=== PATIENT | male | born 1940 | race Caucasian/White ===

== ENCOUNTER 2017-09-30 12:12 | Emergency (ER) | payer OTHER, SELFPAY ==
[2017-09-30 12:18] VITALS: BP 162/84; PULSE 90; RESP 16; TEMP 37.4; O2SAT 97
--- NOTE | 2017-09-30 12:34 | ED.GENADUL ---
Disposition Clinical Impression: Sprain of LCL (lateral collateral ligament) of knee Disposition: HOME Condition: Stable Instructions: Knee Sprain (ED) Additional Instructions: Feel free to return to the emergency department for any new or significant worsening of symptoms. They these may include redness or swelling to the joint, fever chills, other joint involvement or other complaints. Otherwise you should rest the extremity for the next 2-3 days and slowly advance activity as tolerated. Follow-up with your primary care provider in the next week or call orthopedist for arrangement of follow-up appointment. Referrals: Quinton Gould MD [ [facility] STAFF PHYSICIAN] - Miller Gonzales MD [ [facility] STAFF PHYSICIAN] - [facility] [Outside] - 1 week (Please call your primary care provider for reassessment in the next week or feel free to call listed orthopedist if your primary care provider cannot see.) Medical Decision Making - Radiology Data Radiology results: report reviewed, image reviewed - Medical Decision Making Patient presenting to the emergency department for chief complaint of left knee pain. Patient has pain with varus testing of the knee otherwise exam is unremarkable. There is no significant erythema, swelling to the joint, effusion. There is mild discomfort with palpation of lateral aspect of knee and proximal fibula with single area and fibula showing ecchymosis but very mild. Patient has no known injury or trauma but given that he cannot bear weight that is getting progressively worse I do feel that radiological imaging is warranted to assess for occult fracture, pathological fracture. Patient does state that he was mowing the yard when he initially felt something on the lateral aspect of knee that felt like a burning or stinging sensation that is persisted along with the pain. Question of possible lateral ligament sprain is highly considered at this time as well. Otherwise exam is unremarkable so I do not feel any other interventions beyond imaging is warranted at this time. Pending results patient given Tylenol for pain control. After review of radiological imaging and radiologist interpretation showing no acute findings patient was reassessed. Patient has no new or worsening symptoms. I suspect a lateral collateral ligament sprain to the knee. Patient was given a hinged knee brace and informed that he should rest the extremity for the next 2-3 days and slowly advance activity as tolerated with leaving hinged knee brace on and using cane or walker. Patient states that he would prefer to use his cane. Patient was recommended to follow-up with orthopedist but he [facility] and stated he would call his primary care provider on Monday morning for reassessment or referral as needed. Patient was encouraged to use eowm-smg-hqajpal acetaminophen/Tylenol for pain control. After discussion of diagnosis and plan of care with patient patient agreed and stated no further needs, questions, or concerns at this time. Attempted to do med rec on patient but patient states he knows he takes a blood pressure med and her diabetes meds along with med for his cholesterol but does not know names or dosing of medications. History of Present Illness - General Chief complaint: Orthopedic Stated complaint: lt knee PAIN Time Seen by Provider: 09/30/17 12:33 Source: patient, RN notes reviewed Mode of arrival: ambulatory (With use of cane) Limitations: no limitations - History of Present Illness Initial comments: Patient presented to the emergency department with chief complaint of left knee pain. Patient states 3 days ago he was mowing his yard and felt what he thought was a sting or bite to his left lateral knee. Afterwards he has noticed progressive discomfort to his left leg causing him now to need a cane to walk due to severe discomfort with any full weightbearing activity. Patient denies any known injury or trauma, syncope, loss of consciousness. Onset/Timin -: days(s) Location: left, lower extremity Severity scale (1-10): 6 Quality: sharp Consistency: constant Improves with: immobilization Worsens with: movement Associated Symptoms: denies other symptoms Treatments Prior to Arrival: none - Related Data Unknown [Unable to Obtain] 09/30/17 Allergies Allergy/AdvReac Type Severity Reaction Status Date / Time No Known Allergies Allergy Unverified 09/30/17 12:21 Review of Systems Constitutional: no symptoms reported. denies: chills, fever Respiratory: no symptoms reported. denies: shortness of breath, stridor, wheezing Cardiovascular: denies: chest pain, palpitations, syncope Gastrointestinal: denies: abdominal pain Musculoskeletal: as per HPI Skin: as per HPI Neurological: denies: headache, numbness, paresthesias, confusion Past Medical History - Past Medical History Medical history: diabetes, hypertension Surgical history: non-contributory - Social History Smoking status: former smoker Alcohol use: none Drug use: none General Exam - General Limitations: no limitations General appearance: alert, in no apparent distress - Head Head exam: Present: atraumatic - Respiratory Respiratory exam: Absent: respiratory distress - Cardiovascular Cardiovascular Exam: Present: regular rate, normal rhythm - Expanded Lower Extremity Exam Left Hip exam: Present: normal inspection, full ROM. Absent: tenderness, external rotation, internal rotation Upper Leg exam: Present: normal inspection. Absent: deformity, crepidus Knee exam: Present: full ROM, tenderness (mild to palpation of lateral knee), pain/laxity with varus, full knee extension. Absent: swelling, abrasion, ecchymosis, deformity, crepidus, erythema, effusion, pain w/ pronation/supination, posterior draw sign, pain/laxity with valgus Lower Leg exam: Present: tenderness (mild to palpation of proximal fibula), ecchymosis (Very mild to proximal fibula). Absent: swelling Ankle exam: Present: normal inspection Neuro vascular tendon exam: Present: no vascular compromise. Absent: pulse deficit, motor deficit, sensory deficit, tendon deficit, abnormal 2-point discrimination Gait: unable to bear weight - Back Exam Back exam: Present: full ROM. Absent: tenderness, vertebral tenderness - Expanded Back Exam No standard instances Back exam: Negative Straight Leg Raising: (left) - Neurological Exam Neurological exam: Present: alert, oriented X3. Absent: altered - Psychiatric Psychiatric exam: Present: normal affect, normal mood - Skin Skin exam: Present: warm, dry, abrasion (Patient has slight abrasions to left lower extremity which only have mild erythema, no signs of significant infection) Course Vital Signs - 24 hr 09/30/17 12:18 Temperature 37.4 C Pulse 90 Respiratory 16 Rate Blood Pressure 162/84 Pulse Oximetry 97
--- NOTE | 2017-09-30 12:37 | ED.GENADUL_ITS ---
Disposition Clinical Impression: Sprain of LCL (lateral collateral ligament) of knee Disposition: HOME Condition: Stable Instructions: Knee Sprain (ED) Additional Instructions: Feel free to return to the emergency department for any new or significant worsening of symptoms. They these may include redness or swelling to the joint , fever chills, other joint involvement or other complaints. Otherwise you should rest the extremity for the next 2-3 days and slowly advance activity as tolerated. Follow-up with your primary care provider in the next week or call orthopedist for arrangement of follow-up appointment. Referrals: Quintno Gould MD [ [facility] STAFF PHYSICIAN] - Miller Gonzales MD [ [facility] STAFF PHYSICIAN] - [facility] [Outside] - 1 week (Please call your primary care provider for reassessment in the next week or feel free to call listed orthopedist if your primary care provider cannot see.) Medical Decision Making - Radiology Data Radiology results: report reviewed, image reviewed - Medical Decision Making Patient presenting to the emergency department for chief complaint of left knee pain. Patient has pain with varus testing of the knee otherwise exam is unremarkable. There is no significant erythema, swelling to the joint, effusion. There is mild discomfort with palpation of lateral aspect of knee and proximal fibula with single area and fibula showing ecchymosis but very mild. Patient has no known injury or trauma but given that he cannot bear weight that is getting progressively worse I do feel that radiological imaging is warranted to assess for occult fracture, pathological fracture. Patient does state that he was mowing the yard when he initially felt something on the lateral aspect of knee that felt like a burning or stinging sensation that is persisted along with the pain. Question of possible lateral ligament sprain is highly considered at this time as well. Otherwise exam is unremarkable so I do not feel any other interventions beyond imaging is warranted at this time. Pending results patient given Tylenol for pain control. After review of radiological imaging and radiologist interpretation showing no acute findings patient was reassessed. Patient has no new or worsening symptoms. I suspect a lateral collateral ligament sprain to the knee. Patient was given a hinged knee brace and informed that he should rest the extremity for the next 2-3 days and slowly advance activity as tolerated with leaving hinged knee brace on and using cane or walker. Patient states that he would prefer to use his cane. Patient was recommended to follow-up with orthopedist but he [facility] and stated he would call his primary care provider on Monday morning for reassessment or referral as needed. Patient was encouraged to use [id number] acetaminophen/Tylenol for pain control. After discussion of diagnosis and plan of care with patient patient agreed and stated no further needs, questions, or concerns at this time. Attempted to do med rec on patient but patient states he knows he takes a blood pressure med and her diabetes meds along with med for his cholesterol but does not know names or dosing of medications. History of Present Illness - General Chief complaint: Orthopedic Stated complaint: lt knee PAIN Time Seen by Provider: 09/30/17 12:33 Source: patient, RN notes reviewed Mode of arrival: ambulatory (With use of cane) Limitations: no limitations - History of Present Illness Initial comments: Patient presented to the emergency department with chief complaint of left knee pain. Patient states 3 days ago he was mowing his yard and felt what he thought was a sting or bite to his left lateral knee. Afterwards he has noticed progressive discomfort to his left leg causing him now to need a cane to walk due to severe discomfort with any full weightbearing activity. Patient denies any known injury or trauma, syncope, loss of consciousness. Onset/Timin -: days(s) Location: left, lower extremity Severity scale (1-10): 6 Quality: sharp Consistency: constant Improves with: immobilization Worsens with: movement Associated Symptoms: denies other symptoms Treatments Prior to Arrival: none - Related Data Unknown [Unable to Obtain] 09/30/17 Allergies Allergy/AdvReac Type Severity Reaction Status Date / Time No Known Allergies Allergy Unverified 09/30/17 12:21 Review of Systems Constitutional: no symptoms reported. denies: chills, fever Respiratory: no symptoms reported. denies: shortness of breath, stridor, wheezing Cardiovascular: denies: chest pain, palpitations, syncope Gastrointestinal: denies: abdominal pain Musculoskeletal: as per HPI Skin: as per HPI Neurological: denies: headache, numbness, paresthesias, confusion Past Medical History - Past Medical History Medical history: diabetes, hypertension Surgical history: non-contributory - Social History Smoking status: former smoker Alcohol use: none Drug use: none General Exam - General Limitations: no limitations General appearance: alert, in no apparent distress - Head Head exam: Present: atraumatic - Respiratory Respiratory exam: Absent: respiratory distress - Cardiovascular Cardiovascular Exam: Present: regular rate, normal rhythm - Expanded Lower Extremity Exam Left Hip exam: Present: normal inspection, full ROM. Absent: tenderness, external rotation, internal rotation Upper Leg exam: Present: normal inspection. Absent: deformity, crepidus Knee exam: Present: full ROM, tenderness (mild to palpation of lateral knee), pain/laxity with varus, full knee extension. Absent: swelling, abrasion, ecchymosis, deformity, crepidus, erythema, effusion, pain w/ pronation/ supination, posterior draw sign, pain/laxity with valgus Lower Leg exam: Present: tenderness (mild to palpation of proximal fibula), ecchymosis (Very mild to proximal fibula). Absent: swelling Ankle exam: Present: normal inspection Neuro vascular tendon exam: Present: no vascular compromise. Absent: pulse deficit, motor deficit, sensory deficit, tendon deficit, abnormal 2-point discrimination Gait: unable to bear weight - Back Exam Back exam: Present: full ROM. Absent: tenderness, vertebral tenderness - Expanded Back Exam No standard instances Back exam: Negative Straight Leg Raising: (left) - Neurological Exam Neurological exam: Present: alert, oriented X3. Absent: altered - Psychiatric Psychiatric exam: Present: normal affect, normal mood - Skin Skin exam: Present: warm, dry, abrasion (Patient has slight abrasions to left lower extremity which only have mild erythema, no signs of significant infection ) Course Vital Signs - 24 hr 09/30/17 12:18 Temperature 37.4 C Pulse 90 Respiratory 16 Rate Blood Pressure 162/84 Pulse Oximetry 97
[2017-09-30] MEDS: Acetaminophen 325 MG TAB 650 MG PO (12:49)
--- NOTE | 2017-09-30 13:00 | DI.REPORT_ITS ---
SYMPTOM/DIAGNOSIS: LT KNEE AND FIBULA PAIN LEFT KNEE: Three views were obtained. There are mild degenerative changes of the knee, predominantly involving the medial tibiofemoral joint. There is no evidence of acute fracture. LEFT LEG: Two views were obtained. No fracture is seen.
--- NOTE | 2017-09-30 13:48 | DI.VRAD_ITS ---
EXAM: XR Left Knee, 3 views EXAM DATE/TIME: 09/30/2017 1:04 PM CLINICAL HISTORY: 77 years old, male; Signs and symptoms; Other: Lt knee pain, lateral knee pain TECHNIQUE: Three views of the left knee. COMPARISON: No relevant prior studies available. FINDINGS: Bones/joints: Mild degenerative changes. No acute fracture. No dislocation. Soft tissues: Unremarkable. IMPRESSION: No acute findings. Dictated and Authenticated by: Claude Gordon MD. Ordering:MONIQUE MUKHERJEE MD
--- NOTE | 2017-09-30 13:51 | DI.VRAD_ITS ---
EXAM: XR Left Tibia and Fibula, 2 Views EXAM DATE/TIME: 09/30/2017 12:35 PM CLINICAL HISTORY: 77 years old, male; Signs and symptoms; Other: Proximal fibula pain TECHNIQUE: Frontal and lateral views of the left tibia and fibula. COMPARISON: No relevant prior studies available. FINDINGS: Bones/joints: Unremarkable. No acute fracture. No dislocation. Soft tissues: Unremarkable. No radiopaque foreign body. IMPRESSION: No acute abnormality identified. Dictated and Authenticated by: Claude Gordon MD. Ordering:MONIQUE MUKHERJEE MD
== END 2017-09-30 14:03 | disposition home or self-care (01) ==
PROVIDERS: Emergency Provider Student in an Organized Health Care Education/Training Program
DX: S83.422A Sprain of lateral collateral ligament of left knee, initial encounter (principal); X58.XXXA Exposure to other specified factors, initial encounter; I10 Essential (primary) hypertension; E11.9 Type 2 diabetes mellitus without complications
CPT/HCPCS: 29505; 73562; 99284; 73590; 99283; L1810

== ENCOUNTER 2017-10-31 10:15 | Outpatient (CLI) | payer MEDICARE, OTHER, SELFPAY | END 2017-10-31 10:16 | PROVIDERS: Visit Provider Orthopaedic Surgery | DX: M23.8X2 Other internal derangements of left knee (principal); M25.562 Pain in left knee | CPT/HCPCS: 20610; 99213; J1040 ==

== ENCOUNTER 2018-09-05 09:02 | Emergency (ER) | payer MEDICARE, OTHER, SELFPAY ==
[2018-09-05 09:17] VITALS: BP 132/71; PULSE 98; RESP 16; TEMP 37; O2SAT 98
[2018-09-05 09:20] VITALS: RESP 16
--- NOTE | 2018-09-05 09:32 | DI.CT_ITS ---
SYMPTOM/DIAGNOSIS: TRANSIENT LT ARM NUMBNESS, RESOLVED NONCONTRAST HEAD CT: A noncontrast cranial CT was performed. There is mild generalized cerebral atrophy. There is no evidence of acute intracranial hemorrhage, mass effect or midline shift. The orbital and temporal bone structures appear intact. Paranasal sinuses and mastoid air cells are well aerated. CONCLUSION: No evidence of acute intracranial injury. CERVICAL SPINE CT: CT examination of the cervical spine was performed utilizing multi slice acquisition and multi planar reconstruction. There are prominent hypertrophic degenerative changes of the cervical spine with very prominent osteophytes anteriorly at the C 4-5 level. There is no evidence of acute fracture or dislocation. Tracheal laryngeal structures appear intact. Visualized lung apices are clear. No cervical mass or adenopathy is seen. CONCLUSION: No evidence of acute cervical fracture. Question deformity of aortic arch noted at the inferior border of the area scanned. CT angiography may be considered to evaluate the incompletely imaged aortic arch to exclude aneurysm or pseudoaneurysm if clinically indicated.
--- NOTE | 2018-09-05 09:33 | DI.RAD_ITS ---
SYMPTOM/DIAGNOSIS: TRANSIENT LT ARM NUMBNESS, RESOLVED PA AND LATERAL CHEST: The heart is normal in size. The lungs are clear. The mediastinal structures and pleura appear intact. CONCLUSION: Normal chest.
--- NOTE | 2018-09-05 09:33 | W.ED.GENAD ---
Discharge Plan Disposition Patient Disposition: HOME Condition: Improving Discharge Details Chief Complaint: GenMedical Clinical Impression: Arm paresthesia, left Primary Care Provider: [facility] Provider: Miller Hagen Home Meds and New Rx's Prescriptions: Continued terazosin 5 MG capsule 5 mg PO HS RF: 0 metformin 500 MG tablet 500 mg PO BID RF: 0 simvastatin 40 MG tablet 20 mg PO HS RF: 0 levothyroxine 100 MCG tablet 100 mcg PO DAILY RF: 0 omeprazole 20 MG capsule,delayed release(DR/EC) 20 mg PO DAILY RF: 0 oxybutynin chloride 5 MG tablet 10 mg PO DAILY RF: 0 lisinopril 40 MG tablet 40 mg PO DAILY RF: 0 Discharge Instructions Additional Instructions: Return if you have recurrent numbness, develop weakness of the arm, leg, difficulty with gait, change to speech, or any other acute concern. Continue your regular medications. Follow-up with the [facility] for routine care. Medical Decision Making 78-year-old male with a number of chronic and stable medical problems states that we will getting ready for the shower this morning he had transient left arm from mid humerus to wrist numbness. He did not have finger or hand numbness. There was no clumsiness. He says that he slapped it a couple times and after 20 seconds the numbness resolved. He denies recent headache or neck injury. Is not had a fever. No other recent illness. His exam including multipoint neurologic exam is unremarkable. Differential diagnosis does include TIA, must exclude mass, would consider electrolyte abnormality or dehydration, consider radiculopathy as well. Patient had screening laboratories obtained, referred for CT scan of the head, EKG, chest x-ray. CT of the head unremarkable. CT scan of the cervical spine with DJD and question abnormality of the aortic arch, therefore patient referred for CT of the aorta which is unremarkable for significant acute pathology. Please see formal report. Patient remains asymptomatic. Do not feel further work-up is indicated. Is stable and appropriate for discharge home at this time ECG Data Attestation: I personally reviewed and interpreted this ECG (s) as follows: Interpretation: Normal sinus rhythm with a rate of 76, the QRS is narrow, there is no ST segment elevation present HPI General Mode of arrival: ambulatory. Date/Time Provider Initiated Documentation: 09/05/18 09:07. Limitations to Documentation: no limitations. Information obtained by: patient. History of Present Illness 78 year old M presents to the emergency department with the chief complaint of Transient left arm numbness x20 seconds, resolved, described as mild, Quality is described as dull, and is localized to the left and upper extremity. Patient reports no radiation. Patient started experiencing this minute(s) and it has been now resolved. No relieving factors improve symptom(s), No exacerbating factors reported . Patient notes no other symptoms.. Patient did receive the following treatments prior to arrival, none Related Data Home Medications Medication Instructions Recorded Confirmed levothyroxine 100 mcg PO DAILY tab-cap 11/10/17 lisinopril 40 mg PO DAILY tab-cap 11/10/17 metformin 500 mg PO BID tab-cap 11/10/17 omeprazole 20 mg PO DAILY tab-cap 11/10/17 oxybutynin chloride 10 mg PO DAILY 11/10/17 simvastatin 20 mg PO HS 11/10/17 terazosin 5 mg PO HS 11/10/17 Allergies Allergy/AdvReac Type Severity Reaction Status Date / Time No Known Allergies Allergy Unverified 09/05/18 09:26 General Stated Complaint: GenMedical MEL: 3 Review of Systems Review of Systems No headache, no change to speech, no difficulty with walking. No recent fall or illness. He has not had a headache. No neck pain. 8 systems reviewed and otherwise neck PFSH Social History Smoking/Tobacco Use Status: Former Tobacco Use Alcohol Intake: current Alcohol Intake frequency: holidays/special occasions only Drug use: Never Substance use type: does not use Do you feel safe at home: Yes Do you feel safe in your relationship?: Yes Exam Narrative Exam Narrative: GEN: awake, alert, oriented 3. Pleasant, well groomed, interactive. HEAD: Normocephalic, atraumatic ENT: Mucous membranes moist, oropharynx unremarkable, External ear exam unremarkable EYES: PERRL, EOMI NECK: Full ROM, no FRANCY, no menigismus CHEST/RESP: Nontender, clear to auscultation bilateral, no wheeze/rhonchi/rales CARDIOVASCULAR: RRR, no murmur, rub mayito. 2+ Rad pulse bilateral ABDOMEN: Soft, nontender, no mass. +Bowel sounds EXT: Full ROM, no edema, no rash Neuro: Grossly normal neurologic exam, conversant, interactive. Cranial nerves II through XII intact. Able to heel and toe walk. Whuhja-cx-ncad intact. Visual boggs intact. Negative Romberg. Psych: Speech fluent, thoughts congruent, affect normal Course Vital Signs Temperature 37.0 C 09/05/18 09:17 Pulse 98 H 09/05/18 09:17 Respiratory Rate 16 09/05/18 09:17 Blood Pressure 132/71 09/05/18 09:17 Pulse Oximetry 98 09/05/18 09:17 Temperature 37.0 C 09/05/18 09:17 Temperature Source Temporal Artery Scan 09/05/18 09:17 Pulse 98 H 09/05/18 09:17 Respiratory Rate 16 09/05/18 09:20 Respiratory Effort 09/05/18 09:20 Respiratory Depth Normal 09/05/18 09:20 Respiratory Pattern Normal 09/05/18 09:20 Blood Pressure 132/71 09/05/18 09:17 Pulse Oximetry 98 09/05/18 09:17 Oxygen Delivery Method Room Air 09/05/18 09:17 Oxygen Flow Rate 0 09/05/18 09:17
[2018-09-05 09:51] LABS: Abs Immature Grans 0.01 k/cumm (0.0-0.09); Absolute Basophil Count 0.02 k/cumm (0.0-0.2); Absolute Eosinophil Count 0.12 k/cumm (0.0-0.7); Absolute Lymphocyte Count 1.61 k/cumm (1.2-3.4); Absolute Monocyte Count 0.59 k/cumm (0.11-0.7); Absolute Neutrophil Count 5.03 k/cumm (1.2-6.7); Basophils % 0.3; Eosinophils % 1.6; HCT 41.2 % (40.0-50.0); HGB 13.1 g/dL (13.5-17.5); Immature Grans % 0.1; Lymphocytes % 21.8; Mean Corp. HGB Concentration 31.8 g/dL (32.0-36.0); Mean Corpuscular Hemoglobin 29.2 pg (27.0-33.0); Mean Platelet Volume 10.9 fL (8.0-11.0); Neutrophils % 68.2; Platelet Count 208 x1000/uL (130-400); RBC 4.48 m/cumm (4.50-6.00); RBC Distribution Width 14.8 % (11.8-14.1); White Blood Cell Count 7.38 k/cumm (4.4-10.8)
[2018-09-05 10:15] LABS: ALT 22 U/L (12-78); AST 13 U/L (15-37); Albumin 3.8 g/dL (3.4-5.0); Alkaline Phosphatase 82 U/L (46-116); Anion Gap 11.2 mmol/L (3-11); BUN 18 mg/dL (7-18); Bilirubin, Total 0.3 mg/dL (0.2-1.0); CO2 24.8 mmol/L (21.0-32.0); CREATININE 1.26 mg/dL (0.70-1.30); Calcium 9.5 mg/dL (8.5-10.1); Chloride 104 mmol/L (98-107); Estimated GFR 55.64 (mL/min/1.73m2); Glucose 188 mg/dL (70-100); Magnesium 1.7 mg/dL (1.8-2.4); Potassium 4.2 mmol/L (3.5-5.1); Sodium 140 mmol/L (136-145); Total Protein 7.4 g/dL (6.4-8.2); Troponin I < 0.05 ng/mL (0.00-0.06)
--- NOTE | 2018-09-05 10:31 | DI.CT_ITS ---
SYMPTOMS/DIAGNOSIS: LT ARM NUMBNESS TRANSIENT, ? AORTIC PATHOLOGY CT ANGIOGRAPHY CHEST, ABDOMEN AND PELVIS: CT angiography was performed with multi slice acquisition and multi planar and 3D reconstruction. CT Angiography of the chest, abdomen and pelvis was performed with a bolus infusion of 72 cc's of Omnipaque 350. Images obtained at the inferior most aspect of imaging field for cervical spine CT obtained showed question of extraluminal radiodensities or contour deformity of aortic arch. This appears to correspond to an area of pleural plaquing. Wall calcification of the thoracic and abdominal aorta noted. No aneurysm. No dissection. The subclavian arteries appear intact bilaterally. Common carotid arteries and vertebral arteries appear intact. No pulmonary contusion or consolidation. The tracheobronchial tree appears intact. No mediastinal or hilar adenopathy. No pleural effusion seen. Minimal calcification noted in posterior pleural plaques at the lung bases bilaterally. The liver and spleen are unremarkable in appearance except for hepatic calcifications probably representing old healed granulomatous disease or other insult. The pancreas appears intact. Gallbladder has been surgically removed. No biliary dilatation seen. The adrenals are unremarkable in appearance. Bilateral presumed renal cysts noted. Mild bilateral renal cortical thinning noted. The abdominal aorta is of normal diameter. There are duplicated renal arteries bilaterally. No gross stenosis seen involving celiac trunk, SMA, ERIC or renal arteries. Common iliac arteries appear normal as do external and internal iliac arteries except for wall calcifications. No abdominal or pelvic adenopathy seen. Appendix is normal. No evidence of diverticulitis or bowel obstruction. No significant abdominal wall hernia seen. CONCLUSION: Essentially negative CT Angiography of the chest, abdomen and pelvis. No evidence of aortic aneurysm, pseudoaneurysm or dissection.
[2018-09-05 10:32] VITALS: BP 130/65; PULSE 71; RESP 16; O2SAT 97
[2018-09-05] MEDS: Normal Saline 250 ML 500 ML IV (10:51)
[2018-09-05] MEDS: Omnipaque 350 MG/ML 100 ML BTL IJ (11:06)
[2018-09-05 11:37] VITALS: BP 143/71; PULSE 76; RESP 16; O2SAT 100
--- NOTE | 2018-09-05 11:39 | NUR.NOTE ---
patient received discharge and follow up instructions, moving all extremities and has steady gait Nursing Note:
== END 2018-09-05 11:36 | disposition home or self-care (01) ==
PROVIDERS: Emergency Provider Emergency Medicine
DX: R20.2 Paresthesia of skin (principal)
CPT/HCPCS: 36415; 74177; 80053; 93005; 96360; 99285; 70450; 71046; 72125; 83735; 84484; 85025; 93010; 99284; J3490

== ENCOUNTER 2018-11-02 09:17 | Outpatient (CLI) | payer MEDICARE, OTHER, SELFPAY ==
--- NOTE | 2018-11-02 09:34 | MERGE_ITS ---
*[facility]* *[facility]* [address] [place] [address] Date of study: 11/02/2018 Transthoracic Echocardiography M-mode, complete 2D, complete spectral Doppler, and color Doppler *STUDY CONCLUSIONS* Impressions: Low normal LVEF, moderate . Summary: 1. Left ventricle: The cavity size was normal. Wall thickness was at the upper limits of normal. Systolic function was at the lower limits of normal. The estimated ejection fraction was 50-55%. Wall motion was normal; there were no regional wall motion abnormalities. 2. Aortic valve: Trileaflet; moderately thickened, moderately calcified leaflets. Valve mobility was restricted. Transvalvular velocity was increased. There was moderate stenosis. Peak velocity (S): 3m/sec. Mean gradient (S): 21mm Hg. Valve area (VTI): 1.3cm^2. Valve area (Vmax): 1.2cm^2. Valve area (Vmean): 1.1cm^2. 3. Aortic root: The aortic root was at upper normal limits. 4. Ascending aorta: The ascending aorta was at upper normal limits. 5. Mitral valve: Mildly calcified annulus. 6. Right ventricle: The cavity size was normal. Wall thickness was normal. Systolic function was normal. *PATIENT PRESENTATION* Height: 165.1cm (65in ) S/D Pressure: 165 / 78 Weight: 79.4kg (174.6lb ) BSA: 1.93m^2 Test start time: 09:30 AM. Test stop time: 10:30 AM. 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 Pertinent images and digital data are archived for permanent storage and are available for subsequent review. No prior study was available for comparison. Study status: Routine. Transthoracic echocardiography. M-mode, complete 2D, complete spectral Doppler, and color Doppler. A Transthoracic Echocardiogram was performed. Scanning was performed from the parasternal, apical, subcostal, and suprasternal notch acoustic windows. Images were obtained using an [employer] SC 2000 cardiac ultrasound machine. Image quality was fair. Study completion: The patient tolerated the procedure well. History: PMH: Arrhythmia. *CARDIAC ANATOMY* Left ventricle: The cavity size was normal. Wall thickness was at the upper limits of normal. Systolic function was at the lower limits of normal. The estimated ejection fraction was 50-55%. Wall motion was normal; there were no regional wall motion abnormalities. Aortic valve: Trileaflet; moderately thickened, moderately calcified leaflets. Valve mobility was restricted. Doppler: Transvalvular velocity was increased. There was moderate stenosis. There was no significant regurgitation. VTI ratio of LVOT to aortic valve: 0.4. Valve area (VTI): 1.3cm^2. Indexed valve area (VTI): 0.7cm^2/m^2. Peak velocity ratio of LVOT to aortic valve: 0.35. Valve area (Vmax): 1.2cm^2. Indexed valve area (Vmax): 0.6cm^2/m^2. Mean velocity ratio of LVOT to aortic valve: 0.32. Valve area (Vmean): 1.1cm^2. Indexed valve area (Vmean): 0.6cm^2/m^2. Mean gradient (S): 21mm Hg. Peak gradient (S): 35.6mm Hg. Aorta: Aortic root: The aortic root was at upper normal limits. Ascending aorta: The ascending aorta was at upper normal limits. Mitral valve: Mildly calcified annulus. Mobility was not restricted. Doppler: Transvalvular velocity was within the normal range. There was no evidence for stenosis. There was no significant regurgitation. Valve area by pressure half-time: 1.8cm^2. Indexed valve area by pressure half-time: 0.9cm^2/m^2. Left atrium: The atrium was at the upper limits of normal in size. Right ventricle: The cavity size was normal. Wall thickness was normal. Systolic function was normal. Pulmonic valve: Poorly visualized. Doppler: Transvalvular velocity was within the normal range. There was no evidence for stenosis. There was no significant regurgitation. Peak gradient (S): 7.9mm Hg. Tricuspid valve: Structurally normal valve. Doppler: Transvalvular velocity was within the normal range. There was no evidence for stenosis. There was no significant regurgitation. Pulmonary artery: Poorly visualized. Pulmonary systolic pressure was within the normal range. Right atrium: The atrium was normal in size. Pericardium: There was no pericardial effusion. Systemic veins: Inferior vena cava: Poorly visualized. Measurements Left ventricle Value Reference LV ID, ED, PLAX 5.0 cm 3.5 - 6.0 LV ID, ES, PLAX 3.8 cm 2.1 - 4.0 LV PW thickness, ED, PLAX 1.0 cm LV end-diastolic volume, 1-p A2C 133 ml LV ejection fraction, 1-p A2C 47 % LV end-diastolic volume, 1-p A4C 101 ml LV ejection fraction, 1-p A4C 53 % LV e', lateral 0.094 m/sec LV E/e', lateral 6 LV e', medial 0.067 m/sec LV E/e', medial 8 LV e', average 0.081 m/sec LV E/e', average 7 Ventricular septum Value Reference IVS thickness, ED, PLAX 1.0 cm LVOT Value Reference LVOT ID, A-P 2.1 cm LVOT area 3.3 cm^2 LVOT peak velocity, S 1.04 m/sec LVOT mean velocity, S 0.7 m/sec LVOT VTI, S 26.6 cm LVOT peak gradient, S 4.3 mm Hg LVOT mean gradient, S 2.3 mm Hg Stroke volume (SV), LVOT DP 89 ml Stroke index (SV/bsa), LVOT DP 46 ml/m^2 Aortic valve Value Reference Aortic valve peak velocity, S 3 m/sec Aortic valve mean velocity, S 2.2 m/sec Aortic valve VTI, S 67.0 cm Aortic mean gradient, S 21 mm Hg Aortic peak gradient, S 35.6 mm Hg VTI ratio, LVOT/AV 0.4 Aortic valve area, VTI 1.3 cm^2 Velocity ratio, peak, LVOT/AV 0.35 Aortic valve area, peak velocity 1.2 cm^2 Velocity ratio, mean, LVOT/AV 0.32 Aortic valve area, mean velocity 1.1 cm^2 Aortic valve area/bsa, mean velocity 0.6 cm^2/m^2 Aortic regurg deceleration 279 cm/s^2 Aortic regurg pressure half-time 515 ms Aorta Value Reference Aortic root ID, ED 3.5 cm Ascending aorta ID, A-P, S 3.6 cm Left atrium Value Reference LA ID, A-P, ES 4.1 cm LA ID/bsa, A-P 2.1 cm/m^2 <=2.2 LA volume, ES, 2-p 56 ml LA volume/bsa, ES, 2-p 29 ml/m^2 LA/aortic root ratio 1.17 Mitral valve Value Reference Mitral E-wave peak velocity 0.57 m/sec Mitral A-wave peak velocity 1.15 m/sec Mitral deceleration time (H) 419 ms 150 - 230 Mitral pressure half-time 121 ms Mitral E/A ratio, peak 0.5 Mitral valve area, PHT, DP 1.8 cm^2 Pulmonary arteries Value Reference PA pressure, S, DP 25 mm Hg <=30 Tricuspid valve Value Reference Tricuspid regurg peak velocity 2.4 m/sec Tricuspid peak RV-RA gradient 23 mm Hg Right atrium Value Reference RA area, ES, A4C 13.4 cm^2 8.3 - 19.5 Systemic veins Value Reference Estimated CVP 10 mm Hg Right ventricle Value Reference RV pressure, S, DP (H) 33 mm Hg <=30 Pulmonic valve Value Reference Pulmonic peak gradient, S 7.9 mm Hg Legend: (L) and (H) eugenio values outside specified reference range. I have personally reviewed the images and have reviewed and edited the reported findings. Electronically signed by Oziel Woodruff 11/03/2018 11:24
== END 2018-11-02 09:37 ==
PROVIDERS: Visit Provider Physician Assistant Medical
DX: I49.9 Cardiac arrhythmia, unspecified (principal); I35.0 Nonrheumatic aortic (valve) stenosis; I35.8 Other nonrheumatic aortic valve disorders; I34.8 Other nonrheumatic mitral valve disorders
CPT/HCPCS: 93306

== ENCOUNTER 2019-11-05 00:31 | Outpatient (CLI) | payer OTHER, SELFPAY ==
--- NOTE | 2019-11-05 | DI.CT_ITS ---
EXAM: CT CHEST W CLINICAL HISTORY: [id number],COUGH,HEMOPTYSIS,R05 TECHNIQUE: COMPARISON: CT CT thorax abd/pel CTA from 09/05/2018 FINDINGS: CT examination of the chest was performed with intravenous infusion of 70 cc of Omnipaque 350. Images obtained through the upper abdomen show hepatic steatosis and a prior cholecystectomy. Note i s also made of multiple bilateral renal cysts. Spleen and pancreas grossly unremarkable except for s ome splenic calcifications consistent with healed granulomatous disease. There is an aortic valve prosthesis. No thoracic aortic dissection or aneurysm. No definite pulmona ry embolic disease although the pulmonary arteries are not well opacified. Tracheobronchial tree mildred ears intact. No mediastinal or hilar adenopathy. There are mild diffuse pulmonary emphysematous changes. There are pleural plaques and multiple pleur al localized nodules involving diaphragmatic posterior thoracic pleura with multiple plaque calcifica tions. Findings appear fairly stable since prior CT of August 2018. There is no new intrapulmonary no dule. No consolidation seen. IMPRESSION: Multiple pleural plaques with pleural calcification noted. No change from prior study. No evidence of acute consolidation. No pulmonary mass identified. RADIATION DOSE DELIVERED: 563.11mGy.cm Total DLP
[2019-11-05 14:17] LABS: BUN 23 mg/dL (7-18); CREATININE 1.27 mg/dL (0.70-1.30); Estimated GFR 54.99 (mL/min/1.73m2)
[2019-11-05] MEDS: Omnipaque 350 MG/ML 100 ML BTL 70 ML IJ (15:02)
== END 2019-11-05 00:51 ==
PROVIDERS: Nurse Practitioner; Visit Provider Internal Medicine
DX: R05 Cough (principal); J92.9 Pleural plaque without asbestos; I10 Essential (primary) hypertension; Z13.89 Encounter for screening for other disorder
CPT/HCPCS: 84520; 71260; 82565; J3490

== ENCOUNTER 2020-09-23 13:06 | Emergency (ER) | payer MEDICARE, OTHER, SELFPAY ==
[2020-09-23] VITALS (40 sets, daily range): BP systolic 103–153; BP diastolic 47–82; PULSE 72–96; RESP 11–22; TEMP 36.8; O2SAT 95–99
--- NOTE | 2020-09-23 13:00 | RT.EKG_ITS ---
APPROVED REPORT Exam: Resting ECG Reason for Exam: dizzy Patient Location: E HR:88 bpm ECG Measurements Heart Rate 88 AXIS SC 174 P 8 QRSd 90 QRS -28 QT 360 T 39 QTc 437 Conclusion Sinus rhythm...normal P axis, V-rate 60- 99 Inferior infarct, old...Q >35mS, II III aVF. Sinus. No STEMI. I have reviewed and interpreted ECG and agree with software generated interpretation.
--- NOTE | 2020-09-23 13:30 | DI.CT_ITS ---
Exam(s) CT CHEST PE CTA EXAM: CT CHEST PE CTA CLINICAL HISTORY: shortness of breath. TECHNIQUE: Imaging Protocol: CT angiography of the chest was performed using pulmonary embolus jose col. Multi planar reconstructions were performed. CONTRAST MATERIAL: Intravenous: Omnipaque 350 Contrast volume: 100 cc COMPARISON: CT CT CHEST W from 11/05/2019 FINDINGS: CHEST: PULMONARY ARTERIES: There are no intraluminal filling defects to suggest acute pulmonary emboli. LUNGS: There are no confluent infiltrates nor pleural effusions. No pulmonary edema. No pneumothora x.. No ominous pulmonary nodules evident. Mild calcified bilateral pleural plaques noted. No signi ficant focal findings in the trachea and mainstem bronchi. MEDIASTINUM: There is no hilar nor mediastinal adenopathy. Visualized thyroid unremarkable. CARDIAC: There is cardiomegaly. No pericardial effusion. Caliberof the thoracic aorta is within nor mal limits. No dissection evident. There is no significant shift of the interventricular septum. PARTIALLY VISUALIZED UPPERMOST ABDOMEN: No contrast reflux into the intrahepatic veins-IVC. No adren al masses. Bilateral benign kidney cysts noted. Gallbladder surgically absent. Calcified granuloma s in the liver and spleen. Nonobstructive small calculus left kidney. OSSEOUS: No significant osseous lesions.. IMPRESSION: 1. No evidence of acute pulmonary emboli. No evidence of pulmonary infarction.No pleural effusions. Mild benign-appearing calcified pleural plaques again noted. 2. Cardiomegaly. No pericardial effusion. No aortic dissection. 3. Incidental upper abdominal findings as described above. RADIATION DOSE DELIVERED: 439.72mGy.cm Total DLP DATA REPOSITORY: All CT scans at this facility are submitted to the National Radiology Data Registry (NRDR) Dose Index Registry (DIR) with the [employer] (A[employer]). RADIATION OPTIMIZATION: All CT scans at this facility use at least one of these dose optimization te chniques: automated exposure control; mA and/or kV adjustment per patient size (includes targeted exa ms where dose is matched to clinical indication); or iterative reconstruction.
[2020-09-23 13:56] LABS: Abs Immature Grans 0.04 10^3/uL (0.0-0.06); Absolute Basophil Count 0.03 10^3/uL (0.0-0.2); Absolute Eosinophil Count 0.14 10^3/uL (0.0-0.7); Absolute Lymphocyte Count 1.45 10^3/uL (1.2-3.4); Absolute Monocyte Count 0.47 10^3/uL (0.1-0.8); Absolute Neutrophil Count 6.11 10^3/uL (1.2-6.7); Basophils % 0.4; Eosinophils % 1.7; HCT 28.1 % (40.0-50.0); HGB 8.4 g/dL (13.5-17.5); Immature Grans % 0.5; Lymphocytes % 17.6; MCH 26.4 pg (27.0-33.0); MCHC 29.9 % (32.0-36.0); MCV 88.4 fL (80-95); MPV 9.4 fL (8.0-11.0); Monocytes % 5.7; Neutrophils % 74.1; Nucleated RBC 0 %; RBC 3.18 10^6/uL (4.36-5.78); RDW 15.9 % (11.8-14.1); WBC 8.24 10^3/uL (4.4-10.8)
[2020-09-23 14:17] LABS: Diff Comment Diff Reviewed; Hypochromasia 2+; Platelet Count 284 10^3/uL (130-400); Polychromasia Present
[2020-09-23 14:25] LABS: ALT 15 U/L (16-63); AST 9 U/L (15-37); Albumin 3.4 g/dL (3.4-5.0); Alkaline Phosphatase 67 U/L (46-116); Anion Gap 8.5 mmol/L (3-11); BUN 19 mg/dL (7-18); Bilirubin, Total 0.3 mg/dL (0.2-1.0); CO2 25.5 mmol/L (21.0-32.0); CREATININE 1.3 mg/dL (0.70-1.30); Calcium 9.6 mg/dL (8.5-10.1); Chloride 104 mmol/L (98-107); Estimated GFR 53.39 (mL/min/1.73m2); Glucose 165 mg/dL (74-106); Magnesium 1.7 mg/dL (1.8-2.4); NT-proBNP 162 pg/mL (<300); Potassium 4.9 mmol/L (3.5-5.1); Sodium 138 mmol/L (136-145); Total Protein 6.8 g/dL (6.4-8.2); Troponin I < 0.05 ng/mL (<0.06)
--- NOTE | 2020-09-23 15:16 | W.ED.GENAD ---
Discharge Plan Disposition Patient Disposition: HOME Condition: Stable Discharge Details Clinical Impression: Anemia, Shortness of breath Primary Care Provider: Kandis,Local ED Provider: Seth Zhu Home Meds and New Rx's Prescriptions: Continued terazosin 5 MG capsule 5 mg PO HS RF: 0 metformin 500 MG tablet 500 mg PO BID RF: 0 simvastatin 40 MG tablet 20 mg PO HS RF: 0 levothyroxine 100 MCG tablet 100 mcg PO DAILY RF: 0 omeprazole 20 MG capsule,delayed release(DR/EC) 20 mg PO DAILY RF: 0 oxybutynin chloride 5 MG tablet 10 mg PO DAILY RF: 0 lisinopril 40 MG tablet 40 mg PO DAILY RF: 0 folic acid 800 mcg Tablet 800 mcg PO DAILY RF: 0 Discharge Instructions Instructions: Dyspnea (ED), Anemia (ED) Additional Instructions: At this time your blood count does reveal that you are anemic, CT imaging did not reveal any pulmonary embolism. Admission was recommended, offered, but declined. I stressed the importance to you return to the ER for new or worsening symptoms. Otherwise he will contact your primary care provider tomorrow to discuss your ongoing symptoms of the past 5 months and set up outpatient reevaluation and further testing. I have also placed you on our care management list to help expedite this process. Discharge Data Discharge Date/Time-TO BE ENTERED AT DEPARTURE: 09/23/20 18:12 Medical Decision Making <JAXON Hoskins - Last Filed: 09/24/20 08:31> Patient has tricuspid stenosis with a preserved ejection fraction of 55 to 60% on echo from 2019 He is anemic and is guaiac positive without visible blood Dyspneic on exertion with a notable murmur and therefore we will see what his CTA results show, his BNP does not show acute abnormality and at rest, pt asymptomatic He is not hypoxic in the emergency room His hemoglobin and hematocrit have decreased by approximately 07/30/2018 evaluation. EKG does not show acute abnormality Initial troponin is negative BNP wnl Care will be signed out to Mauro Zhu pending CT interpretation and disposition Treatment plan for CHF versus pulmonary embolism, pulmonary edema, pneumonia, Medical Records Medical records reviewed: Yes I reviewed the patient's medical records. Lab Data Lab results reviewed: Yes I reviewed the patient's lab results. <JAXON Escalanet - Last Filed: 09/23/20 18:02> I assumed care of this 80-year-old gentleman from my colleague JAXON Aj, please see her initial HPI and examination. At time of signout awaiting repeat troponin and CTA of the chest. Upon assuming care of the patient, patient is sitting comfortably in the hospital stretcher in room 3, he is quite upset that he has not gone to CT yet. I was able to confirm with radiology that he will go in the next 20 minutes. He is speaking in full sentences, heart rate in the 80s, O2 sat is 98% on room air. He appears well, nontoxic, no respiratory distress. Exam: CTA Chest With Contrast Exam date and time: 09/23/2020 1:40 PM Age: 80 years old Clinical indication: Shortness of breath TECHNIQUE: Imaging protocol: Computed tomographic angiography of the chest with contrast. 3D rendering (Not supervised by radiologist): MIP and/or 3D reconstructed images were created by the technologist. Radiation optimization: All CT scans at this facility use at least one of these dose optimization techniques: automated exposure control; mA and/or kV adjustment per patient size (includes targeted exams where dose is matched to clinical indication); or iterative reconstruction. Contrast material: [id number]; Contrast volume: 100 ml; Contrast route: INTRAVENOUS (IV); COMPARISON: CT thorax abd/pel CTA 09/05/2018 10:57 AM FINDINGS: Pulmonary arteries: No filling defects within the pulmonary arteries are identified to suggest pulmonary embolism. Aorta: Again noted is moderate to severe calcification of the aortic valve. There is moderate atherosclerotic calcification throughout the thoracic aorta and visualized abdominal aorta, without dissection or aneurysm identified. Lungs: The central airways are patent. There are scattered regions of mild subpleural reticular opacity suggesting mild interstitial pulmonary fibrosis. There are multifocal regions of pleural thickening and calcification, likely postinflammatory. Pleural spaces: There are no pleural effusions present. Heart: There is no bowing of the interventricular septum or disproportionate enlargement of the right heart. There is no reflux of contrast into the IVC or hepatic veins. There is mild cardiomegaly, as on prior study. There is no pericardial effusion. LEONARDO JO Preliminary Radiology Report SENIOR DOT NET DEVELOPER (QA) DISCREPANCY? If there is a discrepancy between the preliminary and final interpretation, please notify [facility] via [email or web address]. If you do not have access to our QA portal, call our QA team at [phone] CONFIDENTIALITY STATEMENT This report is intended only for the use of the referring physician, and only in accordance with law, If you received this in error, call [phone] Page 2 of 2 Lymph nodes: There is no evidence of lymphadenopathy. Liver: The liver demonstrates punctate calcifications, consistent with remote granulomatous organism exposure. Gallbladder and bile ducts: There has been a cholecystectomy. Pancreas: The pancreas is moderately atrophic but appears otherwise unremarkable without focal lesion or evidence of acute inflammation. Spleen: The spleen demonstrates punctate calcifications, consistent with remote granulomatous organism exposure. Adrenal glands: There is diffuse bilateral nonspecific mild adrenal enlargement, suggesting hyperplasia. Kidneys and ureters: There is interval increase in size of a 2 mm nonobstructing left upper pole renal stone. Again noted are multiple small bilateral renal cysts measuring up to 2.7 cm. Bones/joints: There is multifocal moderate spondylosis of the mid and lower thoracic spine as well as the upper lumbar spine. No acute fractures are identified. Soft tissues: Unremarkable. IMPRESSION: 1. No acute pulmonary embolism identified. 2. Mild cardiomegaly, as on prior study. 3. Findings of old granulomatous disease. 4. 2 mm nonobstructing left renal stone. CT imaging is negative for acute pathology. Discussed CT findings with patient. Initial plan most likely admission after CTA and stroke resulted. Repeat troponin is less than 0.05. Patient has remained hemodynamically stable under my care. He does not require emergent transfusion. Discussed this with patient. He reports that he and JAXON Skinners to discuss this however he has thought more about it and he does not want to stay. Patient states that his symptoms have been going on for quite some time, at least 5 months. Patient is relieved that he does not have an acute PE but does not want to be admitted to the facility to help expedite work-up, prefer to contact his primary care provider tomorrow. Again, I recommended admission the patient declines. He currently appears well, stable and after using shared decision-making, will discharge the patient at his wishes. He does understand that he may return to the ER at anytime for new or worsening symptoms. He plans to [facility] to make them aware of his ongoing symptoms and I will place him on our care management list to help with outpatient follow-up to be sure that he has the resources he needs to further his evaluation. Upon discharge patient is speaking in full sentences, lungs are clear to auscultation, O2 sat 98% on room air, he is able to ambulate without difficulty. Medical Records Medical records reviewed: Yes I reviewed the patient's medical records. Imaging Data Radiologic Study: Attestation: I personally reviewed and interpreted this imaging study as follows: Imaging: CT Scan Radiologist's impression: Exam: CTA Chest With Contrast Exam date and time: 09/23/2020 1:40 PM Age: 80 years old Clinical indication: Shortness of breath TECHNIQUE: Imaging protocol: Computed tomographic angiography of the chest with contrast. 3D rendering (Not supervised by radiologist): MIP and/or 3D reconstructed images were created by the technologist. Radiation optimization: All CT scans at this facility use at least one of these dose optimization techniques: automated exposure control; mA and/or kV adjustment per patient size (includes targeted exams where dose is matched to clinical indication); or iterative reconstruction. Contrast material: [id number]; Contrast volume: 100 ml; Contrast route: INTRAVENOUS (IV); COMPARISON: CT thorax abd/pel CTA 09/05/2018 10:57 AM FINDINGS: Pulmonary arteries: No filling defects within the pulmonary arteries are identified to suggest pulmonary embolism. Aorta: Again noted is moderate to severe calcification of the aortic valve. There is moderate atherosclerotic calcification throughout the thoracic aorta and visualized abdominal aorta, without dissection or aneurysm identified. Lungs: The central airways are patent. There are scattered regions of mild subpleural reticular opacity suggesting mild interstitial pulmonary fibrosis. There are multifocal regions of pleural thickening and calcification, likely postinflammatory. Pleural spaces: There are no pleural effusions present. Heart: There is no bowing of the interventricular septum or disproportionate enlargement of the right heart. There is no reflux of contrast into the IVC or hepatic veins. There is mild cardiomegaly, as on prior study. There is no pericardial effusion. LEONARDO JO Preliminary Radiology Report SENIOR DOT NET DEVELOPER (QA) DISCREPANCY? If there is a discrepancy between the preliminary and final interpretation, please notify [facility] via [email or web address]. If you do not have access to our QA portal, call our QA team at [phone] CONFIDENTIALITY STATEMENT This report is intended only for the use of the referring physician, and only in accordance with law, If you received this in error, call [phone] Page 2 of 2 Lymph nodes: There is no evidence of lymphadenopathy. Liver: The liver demonstrates punctate calcifications, consistent with remote granulomatous organism exposure. Gallbladder and bile ducts: There has been a cholecystectomy. Pancreas: The pancreas is moderately atrophic but appears otherwise unremarkable without focal lesion or evidence of acute inflammation. Spleen: The spleen demonstrates punctate calcifications, consistent with remote granulomatous organism exposure. Adrenal glands: There is diffuse bilateral nonspecific mild adrenal enlargement, suggesting hyperplasia. Kidneys and ureters: There is interval increase in size of a 2 mm nonobstructing left upper pole renal stone. Again noted are multiple small bilateral renal cysts measuring up to 2.7 cm. Bones/joints: There is multifocal moderate spondylosis of the mid and lower thoracic spine as well as the upper lumbar spine. No acute fractures are identified. Soft tissues: Unremarkable. IMPRESSION: 1. No acute pulmonary embolism identified. 2. Mild cardiomegaly, as on prior study. 3. Findings of old granulomatous disease. 4. 2 mm nonobstructing left renal stone. HPI <JAXON Hoskins - Last Filed: 09/24/20 08:31> General Mode of arrival: ambulatory. Date/Time Provider Initiated Documentation: 09/23/20 13:15. Limitations to Documentation: no limitations. Information obtained by: patient. HPI Narrative: This 80-year-old gentleman presents with past medical history of diabetes, hypertension, urinary tract infection for shortness of breath with exertion. Patient states this has been persistent since May. Patient states that he had symptoms that started after receiving his Covid vaccine reportedly. He states that his symptoms are worsening or merely persisting and denies any associated chest pain, calf pain or swelling, nausea, vomiting, diaphoresis. He denies any fever or chills. He denies any cough or sick contacts. He denies prior history of coagulopathy. He denies any calf pain or swelling. He denies any blood in stool. He denies nausea or vomiting. He denies diarrhea. He states that at rest he does not have shortness of breath. He has not previously been evaluated for this. Related Data Home Medications Medication Instructions Recorded Confirmed levothyroxine 100 mcg PO DAILY tab-cap 11/10/17 09/23/20 lisinopril 40 mg PO DAILY tab-cap 11/10/17 09/23/20 metformin 500 mg PO BID tab-cap 11/10/17 09/23/20 omeprazole 20 mg PO DAILY tab-cap 11/10/17 09/23/20 oxybutynin chloride 10 mg PO DAILY 11/10/17 09/23/20 simvastatin 20 mg PO HS 11/10/17 09/23/20 terazosin 5 mg PO HS 11/10/17 09/23/20 folic acid 800 mcg PO DAILY 09/23/20 09/23/20 Allergies Allergy/AdvReac Type Severity Reaction Status Date / Time No Known Allergies Allergy Unverified 09/23/20 13:25 General Stated Complaint: SOB MEL: 2 Review of Systems <JAXON Hoskins - Last Filed: 09/24/20 08:31> All systems reviewed & are unremarkable except as noted in HPI and below PFSH <JAXON Hoskins - Last Filed: 09/24/20 08:31> Social History Smoking/Tobacco Use Status: Former Tobacco Use Smoking risk assessment performed?: Yes Alcohol Intake: current Alcohol Intake frequency: holidays/special occasions only Drug use: Never Substance use type: does not use Do you feel safe at home: Yes Do you feel safe in your relationship?: Yes Exam <JAXON Hoskins - Last Filed: 09/24/20 08:31> Const General: cooperative and no acute distress Eyes Pupils: PERRL Neck Neck: no JVD Chest Chest: normal inspection of the chest Resp Effort & Inspection: normal respiratory effort Auscultation: clear to auscultation bilaterally Cardio Rate: regular rate Rhythm: regular rhythm Other: Notable murmur GI Inspection: normal to inspection Skin General skin exam: no rashes or lesions noted Neuro General: patient alert and patient oriented x3 Extrem Other: No peripheral edema Distal pulses intact Course <JAXON Hoskins Last Filed: 09/24/20 08:31> Vital Signs Vital signs: Vital Signs Temperature 36.8 C 09/23/20 13:22 Pulse 84 09/23/20 13:22 Respiratory Rate 14 09/23/20 13:22 Blood Pressure 120/55 L 09/23/20 13:22 Pulse Oximetry 99 07/14/21 13:22 Temperature 36.8 C 09/23/20 13:22 Temperature Source Skin 09/23/20 13:22 Pulse 76 09/23/20 15:01 Pulse 78 09/23/20 15:10 Respiratory Rate 15 09/23/20 15:10 Respiratory Effort 09/23/20 13:41 Respiratory Depth Normal 09/23/20 13:41 Respiratory Pattern Normal 09/23/20 13:41 Blood Pressure 127/51 L 09/23/20 15:01 Blood Pressure Mean 71 09/23/20 15:01 Blood Pressure Position Supine 09/23/20 13:22 Pulse Oximetry 98 09/23/20 15:10 Oxygen Delivery Method Room Air 09/23/20 13:22 Oxygen Flow Rate 0 09/23/20 13:22 Pain Level 0 09/23/20 13:22 Lab/Test Results Lab/Test Results: Laboratory Tests Range/Units 09/23/20 09/23/20 13:30 13:30 WBC (4.4-10.8) 10^3/uL 8.24 RBC (4.36-5.78) 10^6/uL 3.18 L Hgb (13.5-17.5) g/dL 8.4 L Hct (40.0-50.0) % 28.1 L MCV (80-95) fL 88.4 MCH (27.0-33.0) pg 26.4 L MCHC (32.0-36.0) % 29.9 L RDW (11.8-14.1) % 15.9 H Plt Count (130-400) 10^3/uL 284 MPV (8.0-11.0) fL 9.4 Immature Gran % 0.5 Neutrophils % 74.1 Lymphocytes % 17.6 Monocytes % 5.7 Eosinophils % 1.7 Basophils % 0.4 Nucleated RBC % % 0 Absolute Neutrophils (1.2-6.7) 10^3/uL 6.11 Absolute Lymphocytes (1.2-3.4) 10^3/uL 1.45 Absolute Monocytes (0.1-0.8) 10^3/uL 0.47 Absolute Eosinophils (0.0-0.7) 10^3/uL 0.14 Absolute Basophils (0.0-0.2) 10^3/uL 0.03 RBC Morphology See Below Polychromasia Present Hypochromasia 2+ Sodium (136-145) mmol/L 138 Potassium (3.5-5.1) mmol/L 4.9 Chloride (98-107) mmol/L 104 Carbon Dioxide (21.0-32.0) mmol/L 25.5 Anion Gap (3-11) mmol/L 8.5 BUN (7-18) mg/dL 19 H Creatinine (0.70-1.30) mg/dL 1.3 Estimated GFR/1.73 m2 (mL/min/1.73m2) 53.39 Glucose (74-106) mg/dL 165 H Calcium (8.5-10.1) mg/dL 9.6 Magnesium (1.8-2.4) mg/dL 1.7 L Total Bilirubin (0.2-1.0) mg/dL 0.3 AST (15-37) U/L 9 L ALT (16-63) U/L 15 L Alkaline Phosphatase (46-116) U/L 67 Troponin I (<0.06) ng/mL < 0.05 NT-Pro-B Natriuret Pep (<300) pg/mL 162 Total Protein (6.4-8.2) g/dL 6.8 Albumin (3.4-5.0) g/dL 3.4 Sign Out <JAXON Hoskins - Last Filed: 09/24/20 08:31> Sign Out Data: Sign Out Comment: pending cta and likely admission Last updated by Natalie Aj PA at 09/23/20 16:12
[2020-09-23 16:37] LABS: Troponin I < 0.05 ng/mL (<0.06)
[2020-09-23] MEDS: Omnipaque 350 MG/ML 100 ML BTL IJ (17:27)
--- NOTE | 2020-09-23 17:33 | DI.VRAD_ITS ---
PROCEDURE INFORMATION: Exam: CTA Chest With Contrast Exam date and time: 09/23/2020 1:40 PM Age: 80 years old Clinical indication: Shortness of breath TECHNIQUE: Imaging protocol: Computed tomographic angiography of the chest with contrast. 3D rendering (Not supervised by radiologist): MIP and/or 3D reconstructed images were created by the technologist. Radiation optimization: All CT scans at this facility use at least one of these dose optimization techniques: automated exposure control; mA and/or kV adjustment per patient size (includes targeted exams where dose is matched to clinical indication); or iterative reconstruction. Contrast material: [id number]; Contrast volume: 100 ml; Contrast route: INTRAVENOUS (IV); COMPARISON: CT thorax abd/pel CTA 09/05/2018 10:57 AM FINDINGS: Pulmonary arteries: No filling defects within the pulmonary arteries are identified to suggest pulmonary embolism. Aorta: Again noted is moderate to severe calcification of the aortic valve. There is moderate atherosclerotic calcification throughout the thoracic aorta and visualized abdominal aorta, without dissection or aneurysm identified. Lungs: The central airways are patent. There are scattered regions of mild subpleural reticular opacity suggesting mild interstitial pulmonary fibrosis. There are multifocal regions of pleural thickening and calcification, likely postinflammatory. Pleural spaces: There are no pleural effusions present. Heart: There is no bowing of the interventricular septum or disproportionate enlargement of the right heart. There is no reflux of contrast into the IVC or hepatic veins. There is mild cardiomegaly, as on prior study. There is no pericardial effusion. Lymph nodes: There is no evidence of lymphadenopathy. Liver: The liver demonstrates punctate calcifications, consistent with remote granulomatous organism exposure. Gallbladder and bile ducts: There has been a cholecystectomy. Pancreas: The pancreas is moderately atrophic but appears otherwise unremarkable without focal lesion or evidence of acute inflammation. Spleen: The spleen demonstrates punctate calcifications, consistent with remote granulomatous organism exposure. Adrenal glands: There is diffuse bilateral nonspecific mild adrenal enlargement, suggesting hyperplasia. Kidneys and ureters: There is interval increase in size of a 2 mm nonobstructing left upper pole renal stone. Again noted are multiple small bilateral renal cysts measuring up to 2.7 cm. Bones/joints: There is multifocal moderate spondylosis of the mid and lower thoracic spine as well as the upper lumbar spine. No acute fractures are identified. Soft tissues: Unremarkable. IMPRESSION: 1. No acute pulmonary embolism identified. 2. Mild cardiomegaly, as on prior study. 3. Findings of old granulomatous disease. 4. 2 mm nonobstructing left renal stone. Dictated and Authenticated by: Mil Graf MD. Ordering:JOANNE Estrada MD
== END 2020-09-23 18:12 | disposition home or self-care (01) ==
PROVIDERS: Physician Assistant; Emergency Provider Physician Assistant
DX: D64.9 Anemia, unspecified (principal); R06.02 Shortness of breath
CPT/HCPCS: 36415; 36416; 71275; 80053; 82962; 86850; 86900; 86901; 93005; 99285; 83735; 83880; 84484; 85025; 93010; 99284; J3490

== ENCOUNTER 2021-06-14 04:03 | Outpatient (CLI) | payer OTHER, SELFPAY ==
[2021-06-14 10:33] LABS: Source Nasal/Nares
[2021-06-14 14:44] LABS: COVID-19 PCR Negative (Negative)
== END 2021-06-14 04:04 | disposition home or self-care (01) ==
PROVIDERS: PCP Occupational Therapist; Visit Provider Surgery
DX: Z20.822 Contact with and (suspected) exposure to COVID-19 (principal); Z01.818 Encounter for other preprocedural examination
CPT/HCPCS: 87635

== ENCOUNTER 2021-06-16 11:26 | Day surgery (SDC) | payer OTHER, MEDICARE, SELFPAY ==
--- NOTE | 2021-06-16 06:52 | COLE_ITS ---
Colonoscopy Report Date of procedure: 06/16/21 Pre-op diagnosis general: Anemia and iFOB positive Post-op diagnosis procedure note: other (mild esophagitis, diverticulosis, internal hemorrhoids, polyps) Procedure: 1. EGD with biopsies 2. Colonoscopy Surgeon: Michelle Marcus Anesthesia Type: General:No Airway Estimated blood loss (mL): 10 Pathology: other (ascending polyps x2) Complications: None Disposition: same day Indications: Mr. Rush is a pleasant 81-year-old gentleman who was referred by the [facility] for an upper endoscopy and colonoscopy.? He was noted to be anemic and he had a positive fit test.? He has a history of tubular adenoma in the past.? His last colonoscopy in 2011 was normal.? He has no family history of colon cancer that he is aware of.? He does have a systolic murmur.? His last echo was 2018 and showed moderate aortic stenosis.? We discussed doing an echocardiogram prior to his procedure.? The echocardiogram is scheduled for today at 4:00.? As long as his stenosis has not progressed we will schedule him for a colonoscopy and EGD next week on Monday.? We discussed the colonoscopy and upper endoscopy in detail.? I reviewed the prep with him. He is to stop methotrexate and aspirin today. Risks, benefits and complications have been reviewed. Complications include but are not limited to bleeding, pain, perforation, missed small lesion/polyp, sore throat, aspiration and adverse reaction to the medications. Questions were entertained and answered to their satisfaction and they wished to proceed. No guarantees were given or implied. Proceed with colonoscopy and upper endoscopy as long as the echocardiogram does not show worsening aortic stenosis Prep: Miralax/Dulcolax Procedure Start Time: 13:16 Procedure End Time: 13:43 Retraction Time: 10 minutes Findings: mild inflammation of the esophagus Severe diverticulosis of the descending and sigmoid colon Internal hemorrhoids Procedure Description: After informed consent was obtained the patient was take to the procedure room and placed in a supine position. Monitors were applied and a time out was done. The patients name, date of , procedure type, allergies to medications and metal in their body was reviewed. A bite block was placed and the patient was sedated. Once sedated and comfortable the gastroscope was advanced through the oropharynx which was grossly normal into the esophagus. The proximal and mid- esophagus were normal. In the distal esophagus there was mild inflammation noted. The scope was advanced into the stomach and through the pylorus into the 3rd portion of the duodenum. The duodenum was noted to be normal. The scope was retracted back into the stomach. There was mild inflammation noted in the antrum and body. Biopsies were done to rule out H. pylori. There were no ulcers. The scope was retro-flexed. The cardia and fundus were noted to be normal. There was no hiatal hernia noted. The scope was retracted back into the esophagus and biopsies were done of the GE junction to rule out Moya's. The Z line was regular. The GE junction was at 36 cm. While the patient was still sedated they were placed in a left decubitous position. A rectal exam was done. External exam was normal. Internal exam revealed a normal sphincter tone and no palpable masses. The prostate felt enlarged and there was a hard nodule (?). The scope was then introduced and retro-flexed. No internal hemorrhoids, masses or polyps were identified on retroflexion. The scope was then advanced to the cecum without difficulty. The ileocecal valve and appendiceal orifice were identified. The prep was adequate. The scope was then slowly retracted over 10 minutes back into the rectum. Polyps were removed with cold forceps in the ascending colon x2. There was severe diverticulosis noted in the descending and sigmoid colon. The scope was removed and the patient was woken up and taken back to Same day surgery in stable condition. The patient tolerated the procedure well and there were no immediate complications. Follow up: as needed
--- NOTE | 2021-06-16 06:54 | W.PM.DSUDISC ---
Discharge Plan Disposition Patient Disposition: HOME Condition: Good Discharge Details Reason For Visit: egd/colo Attending Provider: Mihcelle Marcus Primary Care Provider: Leona Espino Home Meds and New Rx's Prescriptions: Continued terazosin 5 MG capsule 5 mg PO HS 0RF metformin 500 MG tablet 500 mg PO BID 0RF simvastatin 40 MG tablet 20 mg PO HS 0RF levothyroxine 100 MCG tablet 100 mcg PO DAILY 0RF omeprazole 20 MG capsule,delayed release(DR/EC) 20 mg PO DAILY 0RF oxybutynin chloride 5 MG tablet 10 mg PO DAILY 0RF lisinopril 40 MG tablet 40 mg PO DAILY 0RF alogliptin 12.5 mg tablet 12.5 mg PO DAILY 0RF cholecalciferol (vitamin D3) 50 mcg (2,000 unit) capsule 50 mcg PO DAILY 0RF diclofenac sodium 1 % gel 2 g topical QID 0RF Rx Instructions: apply to single elbow, wrist or hand; for hand includes palm/fingers/back of hand ferrous gluconate 324 mg (38 mg iron) tablet 324 mg PO DAILY 0RF lisinopril-hydrochlorothiazide 20-12.5 mg tablet 1 tab PO DAILY 0RF hydroxychloroquine 200 mg tablet 200 mg PO BID 0RF multivitamin Tablet 1 tab PO DAILY 0RF aspirin [Adult Aspirin Regimen] 81 mg tablet,delayed release (DR/EC) 81 mg PO DAILY 0RF omega 0-kcz-xwc-fish oil [Fish Oil] 60-90-500 mg capsule 1 cap PO DAILY 0RF folic acid 800 mcg Tablet 800 mcg PO DAILY 0RF Discontinued bisacodyl [Dulcolax (bisacodyl)] 5 mg tablet,delayed release (DR/EC) 5 mg PO ONCE Qty: 4 0RF Rx Instructions: Take according to provider's instructions for colonoscopy prep. polyethylene glycol 3350 17 gram/dose powder 17 g PO ONCE Qty: 238 0RF Rx Instructions: To be taken as directed by prescriber's office for colonoscopy prep. Discharge Instructions Instructions: Diverticulosis (DC) Additional Instructions: Findings: Mild inflammation of the esophagus Diverticulosis Follow up: with your Family Doctor in 7-10 days Please call if you develop: fevers >101.5 Nausea or Vomiting Abdominal pain that is not transient Rectal bleeding that is more then a tbsp A hard abdomen and inability to pass gas DAY SURGERY UNIT POST ENDOSCOPY INSTRUCTIONS Instructions for everyone who is given Anesthesia: For your safety, please do the following for the next 24 Hours: a. Do not drive or operate dangerous equipment b. Do not drink alcohol beverages or use any recreational drugs for the first 24 hours or while taking pain medications. The medications in your body may have a reaction that can be dangerous. c. Do not make any important decisions or sign any important papers 1. Generally there are no restrictions on your activity after a day or so has gone by, but you may feel a bit fatigued for a few days. 2. After you arrive home you may have a light meal and return to a normal diet as you can tolerate it without feeling sick to your stomach. 3. After surgery, you may feel pain or discomfort. This should be only transient, but if it persists please contact your doctor. 4. If there are any questions regarding the findings of your procedure, please feel free to contact your doctor. 6. If you are unable to contact your doctor with a problem, contact the hospital at [phone]. 7. Continue all your regular medications unless directed otherwise. I understand the above instructions and have no questions. Signature of Patient or Responsible Adult Escort Date/Time Name of Responsible Adult Escort Signature of Nurse Date/Time Activity:: Activity as Tolerated Diet:: High fiber Discharge Orders Discharge Orders: Discharge Order (Routine); Ordered 06/16/21 Ordered By: Michelle Marcus
[2021-06-16 11:33] VITALS: BP 139/66; PULSE 103; RESP 20; TEMP 36.4; O2SAT 98
[2021-06-16] MEDS: Lactated Ringers 1,000 ML 80 ML IV (12:20)
--- NOTE | 2021-06-16 12:34 | W.ANESPRE ---
General Info Date of Service Date Performed: 06/16/21 Height: 5 ft 5 in Weight: 78.3 kg Body Mass Index (BMI): 28.7 Surgical Procedure: Operation Date: 06/16/21 14:05 Proposed Procedure Side Surgeon p Colonoscopy/Gastroscopy Michelle Marcus MD Meds Allergies and Home Medications Allergies Allergy/AdvReac Type Severity Reaction Status Date / Time No Known Allergies Allergy Unverified 06/16/21 11:52 Home Medication Medication Instructions Recorded levothyroxine 100 mcg tablet 100 mcg PO DAILY tab-cap 11/10/17 lisinopril 40 mg tablet 40 mg PO DAILY tab-cap 11/10/17 metformin 500 mg tablet 500 mg PO BID tab-cap 11/10/17 omeprazole 20 mg capsule,delayed 20 mg PO DAILY tab-cap 11/10/17 release oxybutynin chloride 5 mg tablet 10 mg PO DAILY 11/10/17 simvastatin 40 mg tablet 20 mg PO HS 11/10/17 terazosin 5 mg capsule 5 mg PO HS 11/10/17 folic acid 800 mcg tablet 800 mcg PO DAILY 09/23/20 alogliptin 12.5 mg tablet 12.5 mg PO DAILY 05/25/21 aspirin 81 mg tablet,delayed 81 mg PO DAILY 05/25/21 release (Adult Aspirin Regimen) cholecalciferol (vitamin D3) 50 50 mcg PO DAILY 05/25/21 mcg (2,000 unit) capsule diclofenac sodium 1 % topical gel 2 g TOPICAL QID 05/25/21 ferrous gluconate 324 mg (38 mg 324 mg PO DAILY 05/25/21 iron) tablet hydroxychloroquine 200 mg tablet 200 mg PO BID 05/25/21 lisinopril 20 1 tab PO DAILY 05/25/21 mg-hydrochlorothiazide 12.5 mg tablet multivitamin 1 tab PO DAILY 05/25/21 omega 9-qng-uzn-fish oil 60 mg-90 1 cap PO DAILY 05/25/21 mg-500 mg capsule (Fish Oil) bisacodyl 5 mg tablet,delayed 5 mg PO ONCE #4 tab 06/08/21 release (Dulcolax (bisacodyl)) polyethylene glycol 3350 17 17 g PO ONCE #238 g 06/08/21 gram/dose oral powder Current Visit Medications: Current Medications Generic Name Dose Route Start Last Admin Trade Name Freq PRN Reason Stop Dose Admin Hyoscyamine Sulfate 0.125 mg 06/16/21 06:54 Hyoscyamine 0.125 Mg Sl/Oral/Chew SL DIRECTED PRN Ringer's Solution 1,000 mls @ 80 mls/hr 06/16/21 06:00 06/16/21 12:20 IV 07/15/21 23:59 80 mls/hr INFUSION COLETTE Administration IV Miscellaneous Supplies 1 each 06/16/21 06:00 Iv Access IV 07/15/21 23:59 DIRECTED COLETTE Ondansetron HCl 4 mg 06/16/21 06:54 Ondansetron 4 Mg/2 Ml Vial IVP Q4H PRN PRN Nausea / Vomiting Sodium Chloride 0 ml 06/16/21 06:00 Normal Saline Flush 10 Ml Syr IV 07/15/21 23:59 PRN PRN Sodium Chloride 0 ml 06/16/21 06:00 Normal Saline 10 Ml Vial IJ 07/15/21 23:59 DIRECTED PRN Sterile Water 0 ml 06/16/21 06:00 Water,Injection,Sterile 10 Ml Vial IJ 07/15/21 23:59 DIRECTED PRN PFSH Active Problems Active Problems: Problem Status Onset Code Anemia D64.9 Shortness of breath R06.02 Positive FIT (fecal immunochemical test) R19.5 Constipation K59.00 Tubular adenoma of colon D12.6 Medical History Medical History BPH (benign prostatic hyperplasia) Diabetes Erectile dysfunction GERD (gastroesophageal reflux disease) Hyperlipidemia Hypertension Hypothyroid Nonrheumatic aortic (valve) stenosis Osteoarthritis Surgical History Surgical History (Updated 06/16/21 @ 11:51 by Colleen Malone RN) History of colonoscopy (~01/2012) Hx of neck surgery gland excised Tobacco Smoking/Tobacco Use Status: Former Tobacco Use Alcohol Alcohol Intake: current Alcohol intake frequency: holidays/special occasions only Substance Use Substance use: Never Substance use type: does not use Vital Signs and Lab Results Vital Signs Most Recent Vital Signs in EMR: Most Recent Vital Signs Temp Pulse Resp BP Pulse Ox 36.4 C L 103 H 20 139/66 98 06/16/21 11:33 06/16/21 11:33 06/16/21 11:33 06/16/21 11:33 06/16/21 11:33 Point of Care Results Point of Care Results: Finger Stick Blood Glucose 112 06/16/21 11:37 Lab Results Blood Type / Crossmatch: No Data to Display Complete Blood Count: No Data to Display Complete Metabolic Panel: No Data to Display Liver Function Panel: No Data to Display Coagulation Panel: No Data to Display Cardiac Panel: No Data to Display Arterial Blood Gas: No Data to Display Venous Blood Gas: No Data to Display Pancreas Panel: No Data to Display Thyroid Panel: No Data to Display Infectious Disease: Coronavirus (COVID-19)(PCR) Negative (Negative) 06/14/21 09:13 06/14/21 Coronavirus 2019 Source Nasal/Nares 06/14/21 09:13 06/14/21 Blood Cultures: No Data to Display Toxicology Panel: No Data to Display Imaging and Studies Imaging and Studies Study information below may be from another EMR and interpreted by another provider. Please see original notes in EMR for more complete details. EKG Summary: Conclusion Sinus rhythm...normal P axis, V-rate 60- 99 Inferior infarct, old...Q >35mS, II III aVF. 09/23/20 Echocardiogram Summary: Conclusion Normal left ventricular wall thickness and chamber size. Estimated ejection fraction is 55 to 60%. Wall motion is normal Normal right ventricular size and systolic function Both atria are normal in size Aortic valve is calcified, probably trileaflet. There is moderate to severe aortic stenosis. Peak gradient is 54, mean 35. Calculated aortic valve area is 1.07 cm??. There is mild aortic regurgitation Mild mitral annular calcification. Mild mitral regurgitation Normal tricuspid valve with trace regurgitation. Normal estimated right ventricular systolic pressure 26 mmHg Mildly dilated ascending aorta measuring 3.97 cm 06/08/21 Anesthesia Assessment and Plan Anesthesia History Personal History: No History of Anesthesia Complications Family History: No Family History of Anesthesia Complications Exercise Tolerance Exercise Tolerance: Metabolic Equivalents<4 Pertinent Negatives Pertinent Negatives: No Symptoms of GERD (Well controlled with meds), No Major Cardiovascular Symptoms or Complaints and Other (Always has some CARBONE) Cardiac & Pulmonary Exam Cardiac Exam: Normal S1/S2 Heart Sounds Pulmonary Exam: Clear Bilateral Breath Sounds Implantable Cardiac Device Does patient have a Pacemaker or an ICD?: No Airway Exam Known Difficult Airway: No Mallampati Class: 2 Mouth Opening: Normal (> 3cm) Thyromental Distance: Greater than 3 cm Neck Range of Motion: Full ROM Neck Circumference: Normal Teeth Condition: Removable Dentures/Plates Upper, Removable Dentures/Plates Lower and Edentulous ASA Classification ASA Score: ASA 3 Emergency Case?: No NPO Status NPO Status: NPO Clears >2 hours, Solids >8 hours Anesthesia Plan Resuscitation Status: Full Code Anesthesia Technique: General Anesthesia Airway Planned: Natural Airway Monitors Used: Standard Monitors
[2021-06-16 12:54] VITALS: BMI 28.7
--- NOTE | 2021-06-16 13:17 | STOM_PTH ---
PATIENT: Jacob Rush JR LOC: [facility] U#:[id number] AGE/SX: 81/M ROOM: RE06/16/[address]: Michelle Marcus MD : [id number] BED: DIS: 06/16/2021 SPEC #: [id number] RECD: 06/16/21 15:50 STATUS: TRISTAN RE #: [id number] MARLY: 06/16/21 13:[address]: Michelle Marcus DEPT: Surgical Specimen RECD BY: Natalie Long ENTERED: 06/16/21 15:54 SP TYPE: STOMACH OTHR DR: Leona Espino Tissues: 1 - STOMACH BIOPSY 2 - STOMACH BIOPSY 3 - ESOPHAGUS BIOPSY 4 - BIOPSY BOWEL Procedures: GROSS AND MICRO LEVEL 4 Comments: [id number]
[2021-06-16 13:51] VITALS: BP 108/63; PULSE 79; RESP 16; TEMP 36.8; O2SAT 96
[2021-06-16 14:20] VITALS: BP 146/74; PULSE 73; RESP 17; TEMP 36.8; O2SAT 97
--- NOTE | 2021-06-16 14:29 | W.ANESPOSTOP ---
Postoperative Evaluation Date, Time and Location Date Performed: 06/16/21 Time Performed: 13:51 Patient Location: Day Surgery Unit Vital Signs Most Recent Imported Vital Signs: Most Recent Vital Signs Temp Pulse Resp BP Pulse Ox 36.8 C 79 16 108/63 96 06/16/21 13:51 06/16/21 13:51 06/16/21 13:51 06/16/21 13:51 06/16/21 13:51 Pain Score Most Recent Pain Score: Most Recent Pain Score Pain Level 0 06/16/21 13:51 Assessment Mental Status: Awake (Alert & Oriented to Patient Baseline) Airway and Respiratory Function: Patent airway with normal (patient baseline) respiratory exam Cardiovascular Function: Hemodynamically Stable Hydration Status: Adequately Hydrated Nausea & Vomiting: No Nausea or Vomiting Pain: Pt. Denies Any Pain Peripheral Nerve Block: Patient did not receive a nerve block
== END 2021-06-16 14:50 | disposition home or self-care (01) ==
PROVIDERS: PCP Occupational Therapist; Visit Provider Surgery
PROC: (CPT 45380; principal; 2021-06-16 14:00)
DX: R19.5 Other fecal abnormalities (principal); K59.00 Constipation, unspecified; D64.9 Anemia, unspecified; E11.9 Type 2 diabetes mellitus without complications; I10 Essential (primary) hypertension; K20.90 Esophagitis, unspecified without bleeding; K57.30 Diverticulosis of large intestine without perforation or abscess without bleeding; K63.5 Polyp of colon; K64.8 Other hemorrhoids; K31.89 Other diseases of stomach and duodenum
CPT/HCPCS: 45380; 43239; 88305

== ENCOUNTER 2021-06-21 02:44 | Outpatient (CLI) | payer MEDICARE, OTHER, SELFPAY ==
[2021-06-22 18:50] LABS: PSA, Screening 8.6 ng/mL (<=6.5)
== END 2021-06-21 02:45 | disposition home or self-care (01) ==
LOC: LBO 02:44
PROVIDERS: PCP Occupational Therapist; Visit Provider Surgery
DX: N42.89 Other specified disorders of prostate (principal); Z12.5 Encounter for screening for malignant neoplasm of prostate
CPT/HCPCS: 36415; 84153

== ENCOUNTER → 2021-06-28 08:31 | Outpatient (BNVA) | payer MEDICARE, OTHER, SELFPAY | PROVIDERS: PCP Occupational Therapist; Referring Provider Occupational Therapist; Visit Provider Urology | DX: N42.9 Disorder of prostate, unspecified (principal) | CPT/HCPCS: 99215 ==

== ENCOUNTER 2021-10-08 14:11 | Inpatient (IN) | payer MEDICARE, OTHER, SELFPAY ==
[2021-10-08] VITALS (14 sets, daily range): BP systolic 98–118; BP diastolic 40–86; PULSE 70–101; RESP 16–18; TEMP 36.6–37.9; O2SAT 96–100
--- NOTE | 2021-10-08 14:00 | RT.EKG_ITS ---
APPROVED REPORT Exam: Resting ECG Reason for Exam: DYSPNEA Patient Location: E HR:87 bpm ECG Measurements Heart Rate 87 AXIS SC 190 P -6 QRSd 87 QRS -17 QT 409 T 10 QTc 492 Conclusion Sinus rhythm...normal P axis, V-rate 60- 99 sinus rhythm, left axis, normal intervals, non ischemic
--- NOTE | 2021-10-08 14:44 | ED.GENADUL_ITS ---
Discharge Plan Disposition Patient Disposition: [facility] INPATIENT Condition: Stable Discharge Details Chief Complaint: SOB Clinical Impression: CHF (congestive heart failure) Primary Care Provider: Leona Espino ED Provider: Rene Cameron Home Meds and New Rx's Prescriptions: No Action terazosin 5 MG capsule 5 mg PO HS metformin 500 MG tablet 500 mg PO BID simvastatin 40 MG tablet 20 mg PO HS levothyroxine 100 MCG tablet 100 mcg PO DAILY omeprazole 20 MG capsule,delayed release(DR/EC) 20 mg PO DAILY oxybutynin chloride 5 MG tablet 10 mg PO DAILY lisinopril 40 MG tablet 40 mg PO DAILY alogliptin 12.5 mg tablet 12.5 mg PO DAILY cholecalciferol (vitamin D3) 50 mcg (2,000 unit) capsule 50 mcg PO DAILY diclofenac sodium 1 % gel 2 g topical QID Rx Instructions: apply to single elbow, wrist or hand; for hand includes palm/fingers/back of hand ferrous gluconate 324 mg (38 mg iron) tablet 324 mg PO DAILY lisinopril-hydrochlorothiazide 20-12.5 mg tablet 1 tab PO DAILY hydroxychloroquine 200 mg tablet 200 mg PO BID multivitamin Tablet 1 tab PO DAILY aspirin [Adult Aspirin Regimen] 81 mg tablet,delayed release (DR/EC) 81 mg PO DAILY omega 8-btp-wwh-fish oil [Fish Oil] 60-90-500 mg capsule 1 cap PO DAILY folic acid 800 mcg Tablet 800 mcg PO DAILY Medical Decision Making 81-year-old male history of hypertension hyperlipidemia diabetes, presents with exertional dyspnea and dyspnea at rest worse over the past 2 weeks, hypoxic in the field per EMS, improved on nasal cannula, currently resting comfortably, no peripheral edema no chest pain. Bedside ultrasound by EMS showing LV hypokinesis as well as diffuse B-lines. Concerning for new CHF. Consider subacute ACS over the last 2 weeks with resultant developing CHF; lower suspicion for PE or pneumonia or viral syndrome. Screening labs imaging light diuresis likely admission. 15: 41 elevated troponin. Evidence of CHF on x-ray. Light diuresis in process. Will be admitted for further treatment and cardiac evaluation HPI General Date/Time Provider Initiated Documentation: 10/08/21 14:40 . HPI Narrative: 81-year-old male history of diabetes hypertension hyperlipidemia presents with shortness of breath over the past several days, first noted exertional dyspnea approximately 2 weeks ago, denies chest pain nausea vomiting or diaphoresis. Not acutely short of breath today in the shower lay down felt slightly better, denies leg pain or swelling. Related Data Home Medications Medication Instructions Recorded Confirmed levothyroxine 100 mcg tablet 100 mcg PO DAILY 11/10/17 06/28/21 lisinopril 40 mg tablet 40 mg PO DAILY 11/10/17 06/28/21 metformin 500 mg tablet 500 mg PO BID 11/10/17 06/28/21 omeprazole 20 mg capsule,delayed 20 mg PO DAILY 11/10/17 06/28/21 release oxybutynin chloride 5 mg tablet 10 mg PO DAILY 11/10/17 06/28/21 simvastatin 40 mg tablet 20 mg PO HS 11/10/17 06/28/21 terazosin 5 mg capsule 5 mg PO HS 11/10/17 06/28/21 folic acid 800 mcg tablet 800 mcg PO DAILY 09/23/20 06/28/21 alogliptin 12.5 mg tablet 12.5 mg PO DAILY 05/25/21 06/28/21 aspirin 81 mg tablet,delayed 81 mg PO DAILY 05/25/21 06/28/21 release (Adult Aspirin Regimen) cholecalciferol (vitamin D3) 50 50 mcg PO DAILY 05/25/21 06/28/21 mcg (2,000 unit) capsule diclofenac sodium 1 % topical gel 2 g topical QID 05/25/21 06/28/21 ferrous gluconate 324 mg (38 mg 324 mg PO DAILY 05/25/21 06/28/21 iron) tablet hydroxychloroquine 200 mg tablet 200 mg PO BID 05/25/21 06/28/21 lisinopril 20 1 tab PO DAILY 05/25/21 06/28/21 mg-hydrochlorothiazide 12.5 mg tablet multivitamin 1 tab PO DAILY 05/25/21 06/28/21 omega 0-idy-viv-fish oil 60 mg-90 1 cap PO DAILY 05/25/21 06/28/21 mg-500 mg capsule (Fish Oil) Allergies Allergy/AdvReac Type Severity Reaction Status Date / Time No Known Allergies Allergy Unverified 06/28/21 09:02 General Stated Complaint: SOB MEL: 2 Review of Systems Narrative: Review of Systems Constitutional: negative Eyes: negative ENT: negative Cardiovascular: negative Respiratory: Shortness of breath Gastrointestinal: negative : negative Musculoskeletal: negative Skin: negative Neurologic: negative Psych: negative PFSH All Active Problems (Updated 10/08/21 @ 15:32 by Rene Cameron MD) CHF (congestive heart failure) (Chronic) Abnormal prostate by palpation (Acute) Anemia (Chronic) Shortness of breath (Acute) Positive FIT (fecal immunochemical test) (Acute) Constipation (Acute) Tubular adenoma of colon (Acute) Medical History (Updated 10/08/21 @ 15:32 by Rene Cameron MD) BPH (benign prostatic hyperplasia) Diabetes Erectile dysfunction GERD (gastroesophageal reflux disease) Hyperlipidemia Hypertension Hypothyroid Nonrheumatic aortic (valve) stenosis Osteoarthritis Surgical History (Updated 06/24/21 @ 06:52 by Tanya Lim RN) History of colonoscopy (~01/2012) 06/2021 Hx of neck surgery gland excised Family History (Updated 06/08/21 @ 10:07 by Michelle Marcus MD) Mother Breast cancer Father Stroke Social History Smoking/Tobacco Use Status: Former Tobacco Use Quit Date: 03/13/89 Smoking risk assessment performed?: Yes Alcohol Intake: current Alcohol Intake frequency: holidays/special occasions only Drug use: Never Substance use type: does not use Do you feel safe at home: Yes Do you feel safe in your relationship?: Yes Exam Narrative Exam Narrative: Physical Examination General: alert, awake, cooperative, resting comfortably, no acute distress HEENT: normocephalic, atraumatic; PERRL, EOM intact, conjunctiva normal; no nasal discharge; moist mucous membranes, oral and pharyngeal mucosa normal, tolerating secretions Neck: supple, trachea midline; full ROM Chest: normal to inspection Respiratory: normal respiratory effort, speaking in full sentences, clear to auscultation, no wheezing, rales or rhonchi Cardiac: regular rate, regular rhythm, S1S2 intact, no murmurs rubs or gallops GI: abdomen soft, non-tender, non-distended; no palpable mass or hepatosplenomegaly Skin: no lesions, rashes or trauma appreciated Neuro: AAOx3, normal speech, moving all extremities Extremities: No peripheral edema noted Psych: Appropriate mood and affect Course Vital Signs Vital signs: Vital Signs Temperature 36.8 C 10/08/21 14:15 Pulse 98 H 10/08/21 14:15 Respiratory Rate 18 10/08/21 14:15 Blood Pressure 105/52 L 10/08/21 14:15 Pulse Oximetry 100 10/08/21 14:15 Temperature 36.8 C 10/08/21 14:15 Temperature Source Temporal Artery Scan 10/08/21 14:15 Pulse 98 H 10/08/21 14:15 Respiratory Rate 18 10/08/21 14:15 Respiratory Effort 10/08/21 14:24 Blood Pressure 105/52 L 10/08/21 14:15 Blood Pressure Position Supine 10/08/21 14:15 Pulse Oximetry 100 10/08/21 14:15 Oxygen Delivery Method Nasal Cannula 10/08/21 14:15 Oxygen Flow Rate 2 10/08/21 14:15 Pain Level 0 10/08/21 14:15
[2021-10-08 14:52] LABS: Abs Immature Grans 0.05 10^3/uL (0.0-0.06); Absolute Basophil Count 0.03 10^3/uL (0.0-0.2); Absolute Eosinophil Count 0.03 10^3/uL (0.0-0.7); Absolute Monocyte Count 1.16 10^3/uL (0.1-0.8); Absolute Neutrophil Count 10.65 10^3/uL (1.2-6.7); Basophils % 0.2; Eosinophils % 0.2; HCT 23.8 % (40.0-50.0); HGB 7.1 g/dL (13.5-17.5); Immature Grans % 0.4; Lymphocytes % 6.3; MCH 25.4 pg (27.0-33.0); MCHC 29.8 % (32.0-36.0); MCV 85 fL (80-95); MPV 10.2 fL (8.0-11.0); Monocytes % 9.1; Neutrophils % 83.8; Platelet Count 234 10^3/uL (130-400); RDW-SD 43.8 fL; WBC 12.71 10^3/uL (4.4-10.8)
[2021-10-08] MEDS: Furosemide 20 MG/2 ML VIAL IVP (15:01)
[2021-10-08 15:05] LABS: INR 1.1 (0.9-1.1); PTT Activated 25.2 sec (21.0-27.5); Prothrombin Time 10.9 sec (9.3-11.0)
--- NOTE | 2021-10-08 15:05 | DI.RAD_ITS ---
Exam(s) XR PORTABLE CHEST AP EXAM: XR PORTABLE CHEST AP CLINICAL HISTORY: sob, concern for new chf TECHNIQUE: 2D digital imaging was performed of the chest. One image was obtained. An AP view was ob tained. COMPARISON: CR XR CHEST 2V PA LATERAL from 09/05/2018 FINDINGS: MEDIASTINUM: Normal. HEART: Upper limits of normal. PULMONARY VASCULATURE: Pulmonary venous congestion. LUNGS: Bilateral diffuse interstitial infiltrates. No focal consolidating infiltrate. PLEURAL SPACE: There is blunting of the right costophrenic angle which may represent a small effusion . There is a small amount of fluid seen in the right minor fissure. BONE:Within normal limits for the patient's age. OTHER FINDINGS:Normal. IMPRESSION: Findings most suspicious for congestive heart failure/fluid overload. DATA REPOSITORY: RADIATION DOSE DELIVERED:
[2021-10-08 15:08] LABS: Source Nasal/Nares
[2021-10-08 15:12] LABS: ALT 17 U/L (16-63); AST 14 U/L (15-37); Albumin 3.2 g/dL (3.4-5.0); Alkaline Phosphatase 65 U/L (46-116); Anion Gap 8.6 mmol/L (3-11); BUN 29 mg/dL (7-18); Bilirubin, Total 0.4 mg/dL (0.2-1.0); CO2 22.4 mmol/L (21.0-32.0); CREATININE 1.8 mg/dL (0.70-1.30); Calcium 8.9 mg/dL (8.5-10.1); Chloride 104 mmol/L (98-107); Estimated GFR 36.58 (mL/min/1.73m2); Glucose 125 mg/dL (74-106); NT-proBNP 2869 pg/mL (<300); Potassium 4.3 mmol/L (3.5-5.1); Sodium 135 mmol/L (136-145); Total Protein 6.4 g/dL (6.4-8.2)
[2021-10-08 15:14] LABS: Troponin I 137 ng/L (<or=60)
[2021-10-08 15:58] LABS: COVID-19 PCR Negative (Negative)
[2021-10-08 17:30] LABS: Lab Add On Test DONE
[2021-10-08] MEDS: Pantoprazole 40 MG VIAL IVP (18:20)
[2021-10-08] MEDS: Normal Saline Flush 10 ML SYR (18:20)
[2021-10-08] MEDS: Furosemide 40 MG/4 ML VIAL IVP (18:20)
[2021-10-08 18:21] LABS: Procalcitonin 0.1 ng/mL
[2021-10-08 18:24] LABS: Troponin I 296 ng/L (<or=60)
--- NOTE | 2021-10-08 18:47 | W.PM.HP.N ---
Date of service: 10/08/21 Time of Service: 18:47 Assessment and Plan Assessment and plan (1) CHF (congestive heart failure): Status: Chronic Assessment and plan: Likely etiology is anemia in background of aortic stenosis (mod - severe). Diuresing with IV lasix. Echocardiogram; not available until next Monday. Low Na diet. (2) Anemia: Status: Chronic Assessment and plan: H/O iron def anemia. Takes or Fe supp. EGD and colonoscopy at [facility] in June of this year was unremarkable other than mild gastritis and a tubular adenoma. Transfuse 1 unit RBCs Protonix 40mg IV BID. Monitor. (3) Diabetes: Assessment and plan: No A1c in our system. Cont alogliptin (pts own or therapeutic substitute). Hold metformin given ANNABELLA. Monitor BID. Consistent CHO diet. (4) Hyperlipidemia: Assessment and plan: Cont Simvistatin (5) Hypertension: Assessment and plan: SBP 105-110. Holding lisinopril and HCTZ. Monitor (6) Hypothyroid: Assessment and plan: Cont levothyroxine. (7) Nonrheumatic aortic (valve) stenosis: Assessment and plan: Normal left ventricular wall thickness and chamber size.? Estimated ejection fraction is 55 to 60%.? Wall motion is normal Normal right ventricular size and systolic function Both atria are normal in size Aortic valve is calcified, probably trileaflet.? There is moderate to severe aortic stenosis.? Peak gradient is 54, mean 35.? Calculated aortic valve area is 1.07 cm??.? There is mild aortic regurgitation Mild mitral annular calcification.? Mild mitral regurgitation Normal tricuspid valve with trace regurgitation.? Normal estimated right ventricular systolic pressure 26 mmHg Mildly dilated ascending aorta measuring 3.97 cm Cautious diureses; 20mg IV daily starting tomorrow. Received 20 IV today in ED then 40 IV on arrival to med surg. Pt is a poor historian so unsure if a TAVR has been discussed with him. (8) ANNABELLA (acute kidney injury): Status: Acute Assessment and plan: Cr 1.8. 1.3 last June. Avoid nephrotoxic agents. Holding lisinopril. He is being diuresed so will monitor closely. History of Present Illness History of Present Illness Chief Complaint: Shortness of breath Narrative: This is a 81 yo male that receives most of [facility] care at [facility]. He has a PMH of HTN, DM, HLD, osteoarthritis, IVANIA, hypothyroidism, BPH, aortic stenosis. He presented with shortness of breath that began appx 2 weeks ago with CARBONE. He has had to stop activities d/t SOB that he otherwise would typically perform w/o a problem. He denied CP, palpitations, diaphoresis. No cough/sputum. No N/V. He does endorse recent dark black stools. No hematochezia, hematemesis. No F/C. Work up in the ED: Vital Signs Temperature ?36.8 C ?10/08/21 14:15 Pulse ?98 H ?10/08/21 14:15 Respiratory Rate ?18 ?10/08/21 14:15 Blood Pressure ?105/52 L ?10/08/21 14:15 Pulse Oximetry ?100 ?10/08/21 14:15 CXR with evidence of pulmonary edema. WBC count 12.71. Hgb 7.1. Platelets 234. Na 135. K 4.3. Cr 1.8. BUN 29. Troponin 137 > 296 > pending. NTProBNP 2869. Procalcitonin 0.1. He was given lasix 20mg IV in the ED. Admitted for further w/u and tx. Review of Systems All systems reviewed & are unremarkable except as noted in HPI and below PFSH All Active Problems (Updated 10/08/21 @ 19:03 by Rene Macdonald MD) ANNABELLA (acute kidney injury) (Acute) CHF (congestive heart failure) (Chronic) Abnormal prostate by palpation (Acute) Anemia (Chronic) Shortness of breath (Acute) Positive FIT (fecal immunochemical test) (Acute) Constipation (Acute) Tubular adenoma of colon (Acute) Medical History BPH (benign prostatic hyperplasia) Diabetes Erectile dysfunction GERD (gastroesophageal reflux disease) Hyperlipidemia Hypertension Hypothyroid Nonrheumatic aortic (valve) stenosis Osteoarthritis Surgical History History of colonoscopy (~01/2012) 06/2021 Hx of neck surgery gland excised Family History Mother Breast cancer Father Stroke Social History Smoking/Tobacco Use Status: Former Tobacco Use Quit Date: 03/13/89 Smoking risk assessment performed?: Yes Alcohol Intake: current Alcohol Intake frequency: holidays/special occasions only Drug use: Never Substance use type: does not use Do you feel safe at home: Yes Do you feel safe in your relationship?: Yes Meds Allergies and Home Medications Allergies Allergy/AdvReac Type Severity Reaction Status Date / Time No Known Allergies Allergy Unverified 06/28/21 09:02 Home Medications Medication Instructions Recorded Confirmed Type levothyroxine 100 mcg tablet 100 mcg PO DAILY 11/10/17 10/08/21 History lisinopril 40 mg tablet 40 mg PO DAILY 11/10/17 10/08/21 History metformin 500 mg tablet 500 mg PO BID 11/10/17 10/08/21 History omeprazole 20 mg capsule,delayed 20 mg PO DAILY 11/10/17 10/08/21 History release oxybutynin chloride 5 mg tablet 10 mg PO DAILY 11/10/17 10/08/21 History simvastatin 40 mg tablet 20 mg PO HS 11/10/17 10/08/21 History terazosin 5 mg capsule 5 mg PO HS 11/10/17 10/08/21 History folic acid 800 mcg tablet 800 mcg PO DAILY 09/23/20 10/08/21 History alogliptin 12.5 mg tablet 12.5 mg PO DAILY 05/25/21 10/08/21 History aspirin 81 mg tablet,delayed 81 mg PO DAILY 05/25/21 10/08/21 History release (Adult Aspirin Regimen) cholecalciferol (vitamin D3) 50 50 mcg PO DAILY 05/25/21 10/08/21 History mcg (2,000 unit) capsule diclofenac sodium 1 % topical gel 2 g topical QID 05/25/21 10/08/21 History ferrous gluconate 324 mg (38 mg 324 mg PO DAILY 05/25/21 10/08/21 History iron) tablet hydroxychloroquine 200 mg tablet 200 mg PO BID 05/25/21 10/08/21 History lisinopril 20 1 tab PO DAILY 05/25/21 10/08/21 History mg-hydrochlorothiazide 12.5 mg tablet multivitamin 1 tab PO DAILY 05/25/21 10/08/21 History omega 3-jzt-xvt-fish oil 60 mg-90 1 cap PO DAILY 05/25/21 10/08/21 History mg-500 mg capsule (Fish Oil) Exam Const General: cooperative and no acute distress Nutritional Appearance: overweight Orientation: alert, oriented to person and oriented to place Eyes General: appearance normal, both eyes and all related structures Sclera: sclerae normal Neck Neck: full ROM and No no JVD Resp Effort & Inspection: normal respiratory effort Auscultation: rales bilaterally at the base (soft) Cardio Rate: regular rate Rhythm: regular rhythm Heart Sounds: S1 normal and S2 normal GI Inspection: non-distended Palpation: soft and nontender Auscultation: normal bowel sounds Skin General skin exam: no rashes or lesions noted Neuro General: no focal motor deficits Cranial Nerves: facial strength normal Speech: speech normal Extrem General: no pedal edema Psych Mood: congruent mood Affect: normal affect Results Labs Result diagrams: 10/08/21 14:44 10/08/21 14:44 Labs: Laboratory Results - last 24 hr 10/08/21 10/08/21 10/08/21 14:44 14:44 14:44 WBC 12.71 H RBC 2.80 L Hgb 7.1 L Hct 23.8 L MCV 85 MCH 25.4 L MCHC 29.8 L RDW 14.0 Plt Count 234 MPV 10.2 Immature Gran % 0.4 Neutrophils % 83.8 Lymphocytes % 6.3 Monocytes % 9.1 Eosinophils % 0.2 Basophils % 0.2 Nucleated RBC % 0.0 Absolute Neutrophils 10.65 H Absolute Lymphocytes 0.80 L Absolute Monocytes 1.16 H Absolute Eosinophils 0.03 Absolute Basophils 0.03 PT 10.9 INR 1.1 APTT 25.2 Sodium 135 L Potassium 4.3 Chloride 104 Carbon Dioxide 22.4 Anion Gap 8.6 BUN 29 H Creatinine 1.8 H Estimated GFR/1.73 m2 36.58 Glucose 125 H Calcium 8.9 Total Bilirubin 0.4 AST 14 L ALT 17 Alkaline Phosphatase 65 Troponin I 137 H* NT-Pro-B Natriuret Pep 2869 H Total Protein 6.4 Albumin 3.2 L Procalcitonin COVID-19 Source SARS-CoV-2 (PCR) Add-On Test Request Crossmatch 10/08/21 10/08/21 10/08/21 14:44 14:44 15:00 WBC RBC Hgb Hct MCV MCH MCHC RDW Plt Count MPV Immature Gran % Neutrophils % Lymphocytes % Monocytes % Eosinophils % Basophils % Nucleated RBC % Absolute Neutrophils Absolute Lymphocytes Absolute Monocytes Absolute Eosinophils Absolute Basophils PT INR APTT Sodium Potassium Chloride Carbon Dioxide Anion Gap BUN Creatinine Estimated GFR/1.73 m2 Glucose Calcium Total Bilirubin AST ALT Alkaline Phosphatase Troponin I NT-Pro-B Natriuret Pep Total Protein Albumin Procalcitonin 0.1 COVID-19 Source Nasal/Nares SARS-CoV-2 (PCR) Negative Add-On Test Request DONE Crossmatch 10/08/21 10/08/21 17:33 17:53 WBC RBC Hgb Hct MCV MCH MCHC RDW Plt Count MPV Immature Gran % Neutrophils % Lymphocytes % Monocytes % Eosinophils % Basophils % Nucleated RBC % Absolute Neutrophils Absolute Lymphocytes Absolute Monocytes Absolute Eosinophils Absolute Basophils PT INR APTT Sodium Potassium Chloride Carbon Dioxide Anion Gap BUN Creatinine Estimated GFR/1.73 m2 Glucose Calcium Total Bilirubin AST ALT Alkaline Phosphatase Troponin I 296 H* NT-Pro-B Natriuret Pep Total Protein Albumin Procalcitonin COVID-19 Source SARS-CoV-2 (PCR) Add-On Test Request Crossmatch See Detail Last Vital Signs Temp 37.6 C H 10/08/21 16:47 Pulse 95 H 10/08/21 16:47 Resp 17 10/08/21 16:47 BP 110/64 10/08/21 16:47 Pulse Ox 96 10/08/21 16:47
[2021-10-08] MEDS: Simvastatin 40 MG TAB 20 MG PO (19:41)
[2021-10-08] MEDS: Magnesium Oxide 400 MG TAB PO (19:41)
[2021-10-08] MEDS: Acetaminophen 325 MG TAB PO (21:36)
[2021-10-08 22:41] LABS: Troponin I 774 ng/L (<or=60)
[2021-10-09] VITALS (9 sets, daily range): BP systolic 102–132; BP diastolic 50–65; PULSE 66–82; RESP 14–19; TEMP 37.1–37.5; O2SAT 96–98
[2021-10-09] MEDS: Levothyroxine 100 MCG TAB PO (05:52)
[2021-10-09] MEDS: Pantoprazole 40 MG VIAL IVP ×2 (05:52→17:45)
[2021-10-09 07:02] LABS: Abs Immature Grans 0.03 10^3/uL (0.0-0.06); Absolute Basophil Count 0.03 10^3/uL (0.0-0.2); Absolute Eosinophil Count 0.11 10^3/uL (0.0-0.7); Absolute Lymphocyte Count 1.54 10^3/uL (1.2-3.4); Absolute Monocyte Count 1.16 10^3/uL (0.1-0.8); Absolute Neutrophil Count 6.08 10^3/uL (1.2-6.7); Basophils % 0.3; Eosinophils % 1.2; HCT 26.9 % (40.0-50.0); HGB 8.4 g/dL (13.5-17.5); Immature Grans % 0.3; Lymphocytes % 17.2; MCH 26.1 pg (27.0-33.0); MCHC 31.2 % (32.0-36.0); MCV 84 fL (80-95); MPV 10.2 fL (8.0-11.0); Platelet Count 226 10^3/uL (130-400); RBC 3.22 10^6/uL (4.36-5.78); RDW 13.9 % (11.8-14.1); WBC 8.95 10^3/uL (4.4-10.8)
[2021-10-09 07:23] LABS: Anion Gap 7.7 mmol/L (3-11); BUN 32 mg/dL (7-18); CO2 25.3 mmol/L (21.0-32.0); CREATININE 1.8 mg/dL (0.70-1.30); Calcium 9.1 mg/dL (8.5-10.1); Chloride 107 mmol/L (98-107); Estimated GFR 36.58 (mL/min/1.73m2); Glucose 113 mg/dL (74-106); Sodium 140 mmol/L (136-145)
[2021-10-09 07:28] LABS: Troponin I 947 ng/L (<or=60)
--- NOTE | 2021-10-09 07:45 | RT.EKG_ITS ---
APPROVED REPORT Exam: Resting ECG Reason for Exam: elevated troponin, NSTEMI Patient Location: I HR:81 bpm ECG Measurements Heart Rate 81 AXIS SD 173 P -10 QRSd 93 QRS -24 QT 459 T -3 QTc 533 Conclusion Sinus rhythm...normal P axis, V-rate 50- 99 Left ventricular hypertrophy...multiple voltage criteria Inferior infarct, old...Q >35mS, II III aVF Prolonged QT interval...QTc >500mS
[2021-10-09] MEDS: Folic Acid 1 MG TAB PO (07:58)
[2021-10-09] MEDS: Magnesium Oxide 400 MG TAB PO ×2 (07:58→20:18)
[2021-10-09] MEDS: Omeprazole 20 MG CAPCR PO (07:58)
[2021-10-09] MEDS: Multivitamin TAB 1 TAB PO (07:58)
[2021-10-09] MEDS: Oxybutynin 5 MG TAB 10 MG PO (07:58)
[2021-10-09] MEDS: Furosemide 40 MG/4 ML VIAL 20 MG IVP (07:59)
[2021-10-09] MEDS: Normal Saline Flush 10 ML SYR IVP ×2 (08:02→17:45)
[2021-10-09] MEDS: Aspirin E.C. 325 MG TABEC PO (08:16)
[2021-10-09 09:31] LABS: Lab Add On Test DONE
[2021-10-09 09:59] LABS: Calculated LDL 33 mg/dL (<100); Cholesterol 93 mg/dL (<200); HDL Cholesterol 47 mg/dL (40-60); Triglyceride 66 mg/dL (<150)
--- NOTE | 2021-10-09 10:25 | PDOC.CMIN ---
- If Service Date Differs Date of service: 10/09/21 Time of Service: 10:25 Care Management Initial Assess REASON FOR HOSPITALIZATION:: Acute congestive heart failure. PAST MEDICAL HISTORY/PAST SURGICAL HISTORY:: All Active Problems: CHF (congestive heart failure) (Chronic), Abnormal prostate by palpation (Acute), Anemia (Chronic), Shortness of breath (Acute), Positive FIT (fecal immunochemical test) (Acute), Constipation (Acute), and Tubular adenoma of colon (Acute). Medical History: BPH (benign prostatic hyperplasia), Diabetes, Erectile dysfunction, GERD (gastroesophageal reflux disease), Hyperlipidemia,. Hypertension, Hypothyroid, Nonrheumatic aortic (valve) stenosis, and. Osteoarthritis. Surgical History: History of colonoscopy (~01/2012) - 06/2021 and Hx of neck surgery - gland excised. PREVIOUS FUNCTIONAL STATUS/SOCIAL/FAMILY SUPPORTS:: Jacob lives alone in [place], [place]. He has one son, Seamus, who resides in [place]. Jacob is a [place] and was in the [employer] for over 4 years. 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 He enjoys watching sports on television and is independent at baseline. CURRENT FUNCTIONAL STATUS:: Jacob is sitting up in bed when RUBENS enters his room. He is pleasant and talkative. He talks about his time in the [employer] and about buying property in [place] and moving to [place] in 1994. Jacob states he is feeling much better today than he has in a while. ADVANCE DIRECTIVES:: None on file; Jacob believes he has a completed Advance Directives at home or on file with the [facility]. Has patient been provided with info about the portal/API?: Yes Did the patient sign up for the portal?: No CODE STATUS:: Full Code INSURANCE COVERAGE / FINANCIAL ISSUES:: [employer] and Medicare. CURRENT HOME/COMMUNITY SERVICES/EQUIPMENT:: No home/community services. Jacob owns a cane but does not need it for ambulation. PRIMARY CARE PHYSICIAN:: Leona Espino MD ([facility]). POTENTIAL DISCHARGE NEEDS:: Follow up appointments with PCP and counter manager. PATIENT/FAMILY EDUCATION NEEDS:: Review discharge instructions; discuss [facility] [employer]. ANTICIPATED BARRIERS TO DISCHARGE:: None identified at this time. TRANSPORTATION:: Via private vehicle with a friend or via [facility]. PLAN:: Jacob will likely be discharged home with no new services when medically cleared by provider. He will follow up with his PCP, counter manager, and plan of care as prescribed. He will be transported home via [facility] vs private vehicle with a friend when ready. CM will continue to follow.
[2021-10-09 12:29] LABS: Troponin I 880 ng/L (<or=60)
[2021-10-09] MEDS: Polyethylene Glycol 3350 17 GM PACKET PO (16:20)
--- NOTE | 2021-10-09 17:55 | W.PM.PROGNOT ---
Date of Service Date of service: 10/09/21 Time of Service: 17:55 Assessment and Plan Assessment and plan (1) CHF (congestive heart failure): Status: Chronic Assessment and plan: Acute, diastolic, in setting of moderate to severe and anemia. EF 55-60%. Ok to switch to PO lasix. Continue cardiac monitoring. Will need MPI stress test and a repeat echo at the [facility] as troponin leak is likely due to demand ischemia from this. (2) NSTEMI (non-ST elevated myocardial infarction): Status: Acute Assessment and plan: Likely type 2 NSTEMI in setting of CHF, aortic stenosis, anemia. Troponins have turned around. Does need further ischemic workup, but could be done as outpatient. Treat with asa for now. (3) Anemia: Status: Chronic Assessment and plan: iron def anemia. s/p extensive GI w/u at [facility] in June - mild gstritis, tubular adenoma. s/p 1 unit pRBCs yesterday. Continue protonix 40 mg IV BID. Heme negative today. EGD and colonoscopy at [facility] in June of this year was unremarkable other than mild gastritis and a tubular adenoma. I would still avoid plavix or heparin gtt in him, but will trial asa. (4) Nonrheumatic aortic (valve) stenosis: Assessment and plan: Continue cautious diuresis. Will need [facility]. (5) Diabetes: Assessment and plan: Check A1C. Alogliptin cannot be brought in. Will do SSI.. Hold metformin given ANNABELLA. Consistent carb diet. (6) Hyperlipidemia: Assessment and plan: Continue Simvistatin (7) Hypertension: Assessment and plan: BP not requiring meds today. (8) Hypothyroid: Assessment and plan: Continue levothyroxine. (9) ANNABELLA (acute kidney injury): Status: Acute Assessment and plan: Cr 1.8, stable, despite diuretics. Continue to hold myron-i. Recheck in am. (10) DVT prophylaxis: Status: Acute Assessment and plan: SCDs. Hold chemical DVT ppx given recent/chronic GI bleeding (11) Discharge planning issues: Status: Acute Assessment and plan: Full code [facility] patient - will need to complete ischemic workup as outpatient. Subjective Subjective Interval history since last seen: Feels 95% better. Breathing is better. Had a heme negative BM today. Denies dizziness, chest pain, shortness of breath at rest (still reports some with activity), nausea. We discussed how he may have to have an echo and a stress test - the patient states that the [facility] was already arranging a cardiac workup for him. We agreed that he could possibly have the workup as outpatient, depending on how well he looked tomorrow. Exam Narrative Exam Narrative: General: Pleasant elderly male, A&Ox3, NAD, no dyspnea/tachypnea on RA HEENT: EOMI, MMM Heart: RRR Lungs: crackles at L lung base Abdomen: soft, nontender, nondistended Extremities: no edema BLEs Objective Last Vital Signs Temp 37.5 C 10/09/21 15:44 Pulse 75 10/09/21 15:44 Resp 16 10/09/21 15:44 BP 132/65 10/09/21 15:44 Pulse Ox 98 10/09/21 15:44 Laboratory Results - last 24 hr 10/08/21 10/08/21 10/08/21 14:44 17:53 20:15 WBC RBC Hgb Hct MCV MCH MCHC RDW Plt Count MPV Immature Gran % Neutrophils % Lymphocytes % Monocytes % Eosinophils % Basophils % Nucleated RBC % Absolute Neutrophils Absolute Lymphocytes Absolute Monocytes Absolute Eosinophils Absolute Basophils Sodium Potassium Chloride Carbon Dioxide Anion Gap BUN Creatinine Estimated GFR/1.73 m2 Glucose Calcium Magnesium Troponin I 296 H* Triglycerides Total Cholesterol LDL Cholesterol, Calc HDL Cholesterol Procalcitonin 0.1 Add-On Test Request Patient ABO/Rh O Positive Antibody Screen NEGATIVE Crossmatch See Detail 10/08/21 10/09/21 10/09/21 22:15 06:36 06:36 WBC 8.95 RBC 3.22 L Hgb 8.4 L Hct 26.9 L MCV 84 MCH 26.1 L MCHC 31.2 L RDW 13.9 Plt Count 226 MPV 10.2 Immature Gran % 0.3 Neutrophils % 68.0 Lymphocytes % 17.2 Monocytes % 13.0 Eosinophils % 1.2 Basophils % 0.3 Nucleated RBC % 0.0 Absolute Neutrophils 6.08 Absolute Lymphocytes 1.54 Absolute Monocytes 1.16 H Absolute Eosinophils 0.11 Absolute Basophils 0.03 Sodium 140 Potassium 4.0 Chloride 107 Carbon Dioxide 25.3 Anion Gap 7.7 BUN 32 H Creatinine 1.8 H Estimated GFR/1.73 m2 36.58 Glucose 113 H Calcium 9.1 Magnesium 2.0 Troponin I 774 H* 947 H* Triglycerides Total Cholesterol LDL Cholesterol, Calc HDL Cholesterol Procalcitonin Add-On Test Request Patient ABO/Rh Antibody Screen Crossmatch 10/09/21 10/09/21 10/09/21 06:36 06:36 11:46 WBC RBC Hgb Hct MCV MCH MCHC RDW Plt Count MPV Immature Gran % Neutrophils % Lymphocytes % Monocytes % Eosinophils % Basophils % Nucleated RBC % Absolute Neutrophils Absolute Lymphocytes Absolute Monocytes Absolute Eosinophils Absolute Basophils Sodium Potassium Chloride Carbon Dioxide Anion Gap BUN Creatinine Estimated GFR/1.73 m2 Glucose Calcium Magnesium Troponin I 880 H* Triglycerides 66 Total Cholesterol 93 LDL Cholesterol, Calc 33 HDL Cholesterol 47 Procalcitonin Add-On Test Request DONE Patient ABO/Rh Antibody Screen Crossmatch
[2021-10-09] MEDS: Simvastatin 40 MG TAB 20 MG PO (20:18)
[2021-10-10] VITALS (8 sets, daily range): BP systolic 108–126; BP diastolic 51–66; PULSE 62–87; RESP 14–19; TEMP 36.7–37.8; O2SAT 96–98
[2021-10-10] MEDS: Acetaminophen 325 MG TAB PO (03:00)
[2021-10-10] MEDS: Levothyroxine 100 MCG TAB PO (05:55)
[2021-10-10] MEDS: Pantoprazole 40 MG VIAL IVP (05:55)
[2021-10-10 07:06] LABS: Hemoglobin A1C 5.9 % (<5.7)
[2021-10-10 07:09] LABS: Anion Gap 6.9 mmol/L (3-11); BUN 33 mg/dL (7-18); CO2 26.1 mmol/L (21.0-32.0); CREATININE 1.7 mg/dL (0.70-1.30); Calcium 9.3 mg/dL (8.5-10.1); Chloride 104 mmol/L (98-107); Estimated GFR 39.07 (mL/min/1.73m2); Glucose 116 mg/dL (74-106); Potassium 4.2 mmol/L (3.5-5.1); Sodium 137 mmol/L (136-145)
[2021-10-10] MEDS: Aspirin E.C. 81 MG TABEC PO (07:48)
[2021-10-10] MEDS: Omeprazole 20 MG CAPCR PO (07:48)
[2021-10-10] MEDS: Normal Saline Flush 10 ML SYR IVP (07:48)
[2021-10-10] MEDS: Multivitamin TAB 1 TAB PO (07:49)
[2021-10-10] MEDS: Oxybutynin 5 MG TAB 10 MG PO (07:49)
[2021-10-10] MEDS: Folic Acid 1 MG TAB PO (07:49)
[2021-10-10] MEDS: Magnesium Oxide 400 MG TAB PO ×2 (07:49→20:37)
[2021-10-10] MEDS: Furosemide 40 MG TAB PO (07:49)
[2021-10-10] MEDS: Polyethylene Glycol 3350 17 GM PACKET PO (07:59)
--- NOTE | 2021-10-10 18:50 | PGE_ITS ---
Date of Service Date of service: 10/10/21 Time of Service: 17:50 Assessment and Plan Assessment and plan (1) CHF (congestive heart failure): Status: Chronic Assessment and plan: Acute on chronic, diastolic, in setting of moderate to severe and anemia. EF 55-60%. On PO lasix today - will reassess in am. Continue cardiac monitoring. Will need MPI stress test and a repeat echo at the [facility] as troponin leak is likely due to demand ischemia from this. (2) NSTEMI (non-ST elevated myocardial infarction): Status: Acute Assessment and plan: Likely type 2 NSTEMI in setting of CHF, aortic stenosis, anemia. Troponins have turned around. Does need further ischemic workup, but could be done as outpatient. Continue aspirin. (3) Anemia: Status: Chronic Assessment and plan: iron def anemia. s/p extensive GI w/u at [facility] in June - mild gastritis, tubular adenoma. s/p 1 unit pRBCs yesterday. Continue protonix 40 mg IV BID. Heme negative, tolerating aspirin. EGD and colonoscopy at [facility] in June of this year was unremarkable other than mild gastritis and a tubular adenoma. I would still avoid plavix or heparin gtt in him. Continue aspirin. (4) Nonrheumatic aortic (valve) stenosis: Assessment and plan: Continue cautious diuresis. Will need [facility] follow up. (5) Diabetes: Assessment and plan: A1C is 5.9. Alogliptin cannot be brought in. Continue SSI. Hold metformin given ANNABELLA. Consistent carb diet. (6) Hyperlipidemia: Assessment and plan: Continue Simvistatin (7) Hypertension: Assessment and plan: BP not requiring meds today. (8) Hypothyroid: Assessment and plan: Continue levothyroxine. (9) ANNABELLA (acute kidney injury): Status: Acute Assessment and plan: Cr 1.7, better, despite diuretics. Continue to hold myron-i. Recheck in am. (10) DVT prophylaxis: Status: Acute Assessment and plan: SCDs. Hold chemical DVT ppx given recent/chronic GI bleeding (11) Discharge planning issues: Status: Acute Assessment and plan: Full code [facility] patient - will need to complete ischemic workup as outpatient. Anticipate discharge home tomorrow. Subjective Subjective Interval history since last seen: Mr Rush feels better. He does not remember meeting me yesterday. He states his breathing has been good. Denies dizziness, chest pain, nausea. We discussed how he was switched to oral lasix today and, if feeling well, can go home tomorrow with [facility]. Exam Narrative Exam Narrative: General: Pleasant elderly male, A&Ox3, NAD, no dyspnea/tachypnea on RA HEENT: EOMI, MMM Heart: RRR Lungs: rales and expiratory wheezes bilaterally Abdomen: soft, nontender, nondistended Extremities: no edema BLEs Objective Last Vital Signs Temp 37.2 C 10/10/21 18:48 Pulse 80 10/10/21 18:48 Resp 18 10/10/21 18:48 BP 126/51 L 10/10/21 18:48 Pulse Ox 97 10/10/21 18:48 Laboratory Results - last 24 hr 10/10/21 10/10/21 06:34 06:34 Sodium 137 Potassium 4.2 Chloride 104 Carbon Dioxide 26.1 Anion Gap 6.9 BUN 33 H Creatinine 1.7 H Estimated GFR/1.73 m2 39.07 Glucose 116 H Hemoglobin A1c 5.9 H Calcium 9.3 Magnesium 2.0
[2021-10-10] MEDS: Simvastatin 40 MG TAB 20 MG PO (20:37)
[2021-10-11 01:43] VITALS: PULSE 67
[2021-10-11 03:54] VITALS: BP 128/62; PULSE 62; RESP 18; TEMP 36.5; O2SAT 98
[2021-10-11] MEDS: Levothyroxine 100 MCG TAB PO (05:32)
[2021-10-11 07:23] LABS: Anion Gap 6.9 mmol/L (3-11); BUN 34 mg/dL (7-18); CO2 27.1 mmol/L (21.0-32.0); CREATININE 1.6 mg/dL (0.70-1.30); Calcium 9.2 mg/dL (8.5-10.1); Chloride 102 mmol/L (98-107); Glucose 111 mg/dL (74-106); Magnesium 2.2 mg/dL (1.8-2.4); Potassium 4.1 mmol/L (3.5-5.1); Sodium 136 mmol/L (136-145)
[2021-10-11 07:42] VITALS: BP 127/62; PULSE 72; RESP 18; TEMP 37.1; O2SAT 94
[2021-10-11] MEDS: Folic Acid 1 MG TAB PO (07:43)
[2021-10-11] MEDS: Omeprazole 20 MG CAPCR PO (07:43)
[2021-10-11] MEDS: Multivitamin TAB 1 TAB PO (07:43)
[2021-10-11] MEDS: Aspirin E.C. 81 MG TABEC PO (07:43)
[2021-10-11] MEDS: Furosemide 40 MG TAB PO (07:43)
[2021-10-11] MEDS: Magnesium Oxide 400 MG TAB PO (07:43)
[2021-10-11] MEDS: Oxybutynin 5 MG TAB 10 MG PO (07:43)
[2021-10-11] MEDS: Normal Saline Flush 10 ML SYR IVP (07:45)
[2021-10-11 07:50] VITALS: PULSE 83
--- NOTE | 2021-10-11 08:42 | PDOC.CMPRO ---
- If Service Date Differs Date of service: 10/11/21 Time of Service: 08:42 Care Management Progress Note S/O: A: 81 year old male admitted to [facility] on 10/08/21 for Acute congestive heart failure. P: Jacob will likely be discharged home with no new services when medically cleared by provider. He will follow up with his PCP, auto self service station attendant, and plan of care as prescribed. He will be transported home via RCT vs private vehicle with a friend when ready. CM will continue to follow.
[2021-10-11] MEDS: Polyethylene Glycol 3350 17 GM PACKET PO (09:05)
[2021-10-11] MEDS: Bisacodyl 5 MG TABEC PO (09:05)
[2021-10-11] MEDS: Docusate Sodium 100 MG CAP PO (09:05)
[2021-10-11 11:29] VITALS: BP 109/65; PULSE 78; RESP 19; TEMP 36.9; O2SAT 98
--- NOTE | 2021-10-11 11:59 | PDOC.HHF2F ---
Home Health Certification Home Health Certification: 1. Encounter Date and Reason I certify that Jacob Rush Jr was seen by Mary Lou Vann on 10/11/21 and that I had a [id number] encounter with this patient that meets the physician face to face encounter requirements. 2. Clinical Findings Supporting Skilled Need and Homebound Status I certify that home health services are medically necessary, include either intermittent senior living and/or physical/speech therapy, and that this patient is homebound in that absences from the home require considerable and taxing effort and are infrequent or of short duration, or are attributable to the need to receive medical care. [X] (a) Attached documentation from encounter provides clinical findings supporting skilled need and homebound status (including what assistance patient requires to leave the home). The encounter with the patient was in whole, or in part, for the following medical condition, which is the primary reason for home health care: Acute Congestive Heart Failure Group Home: CHF, severe aortic stenosis, evaluate vitals, weights, volume status 3. Certification and Authentication I certify that I composed the above information based on my clinical judgement relating to this patient's medical condition and, if applicable, clinical findings communicated to me by the NPP or inpatient physician who performed the Home Health Referral. All further orders will be obtained through __Dr Espino (Community Based Physician - PCP)
--- NOTE | 2021-10-11 12:04 | DSE_ITS ---
Date of service: 10/11/21 Time of Service: 12:04 DS: Diagnosis Discharge Diagnosis (1) Acute on chronic diastolic heart failure: Status: Acute (2) Symptomatic severe aortic stenosis with normal ejection fraction: Status: Acute (3) Anemia: Status: Chronic Asessment and Plan: s/p 1 unit pRBCs (4) NSTEMI (non-ST elevated myocardial infarction): Status: Acute (5) Hypoxia: Status: Resolved (6) Diabetes: (7) Hyperlipidemia: (8) Hypertension: (9) Hypothyroid: (10) ANNABELLA (acute kidney injury): Status: Resolved Discharge Plan Disposition Patient Disposition: HOME W/HOME HEALTH SERVICE Condition: Stable Discharge Details Reason For Visit: Acute Congestive Heart Failure Admit Date/Time: 10/08/21 15:43 Admit Provider: Rene Macdonald Attending Provider: Rene Macdonald Primary Care Provider: Leona Espino Hospital Course Hospital Course: Mr Rush is a 81 year old male with PMHx of severe aortic stenosis, as well as h/o NIDDM2, chronic diastolic CHF/CHF related to the aortic stenosis, chronic anemia with h/o GI bleeding in the past, who was admitted to [facility] hospitalist service on 10/08/21 with acute CHF with hypoxia (requiring 2L of O2, desaturating to the 80s on RA), acute on chronic anemia without evidence of active GI bleeding with hemoglobin of 7.1 (was 8.4 on 09/23/20), and an elevated troponin, c/w type 2 NSTEMI in setting of above. The patient was treated with IV furosemide, was transfused 1 unit of pRBCs (followed by furosemide), and obse rved on telemetry. His serial troponins did become elevated to as high as 947 ng/mL (was 137 on admission) prior to turning around. His serial EKGs showed a borderline prolonged QT interval, Q waves in anterior leads c/w likely old infarct, but no acute ischemia. The patient did not have any arrhythmic events on telemetry. He never had chest pain. His oxygen requirement resolved with diuresis and blood transfusion. He was maintained on aspirin therapy. Given his h/o chronic anemia and GI bleeding and the circumstances surrounding his troponin elevation, more consistent with demand ischemia, we did not treat him with dual antiplatelet therapy or anticoagulation. The patient states that the [facility] was already planning on doing a stress test for him. He would benefit from an echocardiogram and further ischemic workup as outpatient. He was transitioned to oral furosemide and is being instructed to weigh himself daily and to take an extra dose of 20 mg of furosemide if he has gained 3 lbs or greater in 3 days. He is being discharged home today with home health nursing to monitor his cardiopulmonary status. Ideally, home health would draw blood work (CBC, BMP, magnesium) in 1 week with results going to his provider at the [facility] follow up. He is medically stable for discharge home today on room air. Care for patient as well as completion of his discharge summary took 60 minutes on the day of discharge. Home Meds and New Rx's Prescriptions: New docusate sodium [Colace] 100 mg Capsule 100 mg PO BID Qty: 60 0RF magnesium oxide 400 mg (241.3 mg magnesium) Tablet 400 mg PO DAILY Qty: 10 0RF furosemide 20 mg tablet See Rx Instructions .ROUTE .COMPLEX Qty: 45 0RF Rx Instructions: Take one tablet daily. Take an extra tablet if you've gained 3 lbs or greater in 3 days. magnesium oxide 400 mg magnesium capsule 400 mg PO DAILY Qty: 7 0RF furosemide 20 mg tablet 20 mg PO DAILY Qty: 10 0RF Rx Instructions: Take 20 mg of furosemide daily. Take an additional 20 mg if you have gained 3 lbs or greater in 3 days. docusate sodium [Colace] 100 mg capsule 100 mg PO BID Qty: 14 0RF Continued terazosin 5 MG capsule 5 mg PO HS metformin 500 MG tablet 500 mg PO BID simvastatin 40 MG tablet 20 mg PO HS levothyroxine 100 MCG tablet 100 mcg PO DAILY omeprazole 20 MG capsule,delayed release(DR/EC) 20 mg PO DAILY oxybutynin chloride 5 MG tablet 10 mg PO DAILY alogliptin 12.5 mg tablet 12.5 mg PO DAILY cholecalciferol (vitamin D3) 50 mcg (2,000 unit) capsule 50 mcg PO DAILY ferrous gluconate 324 mg (38 mg iron) tablet 324 mg PO DAILY hydroxychloroquine 200 mg tablet 200 mg PO BID multivitamin Tablet 1 tab PO DAILY aspirin [Adult Aspirin Regimen] 81 mg tablet,delayed release (DR/EC) 81 mg PO DAILY omega 3-dit-yqc-fish oil [Fish Oil] 60-90-500 mg capsule 1 cap PO DAILY folic acid 1 mg Tablet 1 mg PO DAILY fiber Capsule 0 cap PO DAILY PRN PRN Rx Instructions: PER PT, TAKES FIBER PRN carboxymethylcellulose sodium 0.5 % Drops 1 drp ophthalmic (eye) QID PRN PRN Rx Instructions: 1 DROP BOTH EYES QID PRN FOR DRY EYES Discontinued lisinopril-hydrochlorothiazide 20-12.5 mg tablet 2 tab PO DAILY Discharge Instructions Instructions: Heart Failure ([facility]), Aortic Stenosis ([facility]), Ascites ([facility]), Low- Sodium Diet ([facility]) Additional Instructions: Return to the hospital if you develop any fever, bleeding, chest pain, or w orsening shortness of breath. Follow a low sodium diet. Weigh yourself daily at the same time wearing the same amount of clothes. Keep a daily log of your weights. Take an extra dose of 20 mg of furosemide if you have gained 3 lbs or greater in 3 days. Follow up with your PCP in 1-2 weeks. Follow up with the [facility] cardiology clinic - they will contact you with follow up information. Bloodwork in 1 week. Referrals: [facility] [Outside] (Updated Clinicals Faxed for MPI stress test and Repeated Echo. They will call you with an appt.) Activity:: Activity as Tolerated Equipment/Supplies:: No Equipment Needed Diet:: carb consistent low sodium Discharge Orders Discharge Orders: Discharge Order (Routine); Ordered 10/11/21 Ordered By: Mary Lou Vann DS: Summary Time Spent with Patient providing and/or coordinating discharge services: Greater than 30 minutes Status at Discharge Functional status at discharge: independent ambulation Overall status at discharge: patient is back to baseline Mental Status: mental status grossly normal Speech and Movement: speech and movement normal Mood: congruent mood Affect: normal affect Exam Narrative Exam Narrative: General: Pleasant elderly male, A&Ox3, NAD, no dyspnea/tachypnea on RA HEENT: EOMI, MMM Heart: RRR Lungs: mild rales at B bases Abdomen: soft, nontender, nondistended Extremities: no edema BLEs Psych Mental Status: mental status grossly normal Speech and Movement: speech and movement normal Mood: congruent mood Affect: normal affect DS: Data Vitals/I&O Vitals and I&O: Vital Signs Temperature 37.1 C 10/11/21 07:42 Temperature Source Tympanic 10/11/21 07:42 Pulse 83 10/11/21 07:50 Pulse Rhythm Regular 10/11/21 07:45 Respiratory Rate 18 10/11/21 07:42 Respiratory Effort Non-Labored 10/11/21 07:45 Respiratory Depth Normal 10/11/21 07:45 Respiratory Pattern Normal 10/11/21 07:45 Blood Pressure 127/62 10/11/21 07:42 Blood Pressure Position Supine 10/08/21 14:15 Pulse Oximetry 94 10/11/21 07:42 Oxygen Delivery Method Room Air 10/11/21 07:42 Oxygen Flow Rate 0 10/11/21 07:42 Pain Level 0 10/11/21 07:42 Comment 10/08/21 19:20 Intake & Output 10/10/21 10/11/21 10/11/21 23:59 11:59 23:59 Intake Total 730 / 910 400 / 400 Output Total 1200 / 2925 2350 / 2350 Balance -470 / -2015 -1950 / -1950 Weight 77.7 kg Intake: Oral 730 / 910 400 / 400 Output: Urine 1200 / 2925 2350 / 2350 Other: Urine Color Yellow Yellow Urine Appearance Clear Clear Urine Odor None Stool Size Small Stool Characteristics Formed Voiding Methods Toilet Toilet Data Completed and Pending Labs on day of discharge: Labs from last 24 hours 10/11/21 06:35 Sodium 136 Potassium 4.1 Chloride 102 Carbon Dioxide 27.1 Anion Gap 6.9 BUN 34 H Creatinine 1.6 H Estimated GFR/1.73 m2 41.90 Glucose 111 H Calcium 9.2 Magnesium 2.2 Additional Comments Additional comments: CXR 10/08/21: Findings most suspicious for congestive heart failure/fluid overload.? PFSH All Active Problems (Updated 10/11/21 @ 12:18 by Mary Lou Vann MD) Symptomatic severe aortic stenosis with normal ejection fraction (Acute) Acute on chronic diastolic heart failure (Acute) Discharge planning issues (Acute) DVT prophylaxis (Acute) NSTEMI (non-ST elevated myocardial infarction) (Acute) CHF (congestive heart failure) (Chronic) Abnormal prostate by palpation (Acute) Anemia (Chronic) Shortness of breath (Acute) Positive FIT (fecal immunochemical test) (Acute) Constipation (Acute) Tubular adenoma of colon (Acute) Medical History BPH (benign prostatic hyperplasia) Diabetes Erectile dysfunction GERD (gastroesophageal reflux disease) Hyperlipidemia Hypertension Hypothyroid Nonrheumatic aortic (valve) stenosis Osteoarthritis Surgical History History of colonoscopy (~01/2012) 06/2021 Hx of neck surgery gland excised Family History Mother Breast cancer Father Stroke Social History Smoking/Tobacco Use Status: Former Tobacco Use Quit Date: 03/13/89 Smoking risk assessment performed?: Yes Alcohol Intake: current Alcohol Intake frequency: holidays/special occasions only Drug use: Never Substance use type: does not use Do you feel safe at home: Yes Do you feel safe in your relationship?: Yes
--- NOTE | 2021-10-11 12:44 | CMDISCH_ITS ---
- If Service Date Differs Date of service: 10/11/21 Time of Service: 12:44 LACE Index Scoring Tool - Questions: Length of Stay (in days): 3 Acuity (Admit via E.D.?): Yes Comorbidities: Diabetes w/o Complication E.D. Visits: 1 - Answers: Total Score: 8 Risk of Readmission: Low Risk Care Management Discharge Reason for Hospitalization: Acute congestive heart failure. Discharge Plan: Jacob is discharged home with New [facility] RN services. New RX's are faxed to the [facility] and will be shipped from their mail order pharmacy. In the meantime, New RX for 7 day supply is transmitted to [facility] in [facility]. Jacob will follow up with [facility], with recommendation for an outpatient MPI stress test and repeat echo. Per [facility], they will obtain DC approval and will call Jacob directly to schedule. Patient/Family Education Needs: Review discharge instructions, limitations, medications and plan to follow up with [facility] providers. ask me three. Services Needed at Discharge: Home Health Care Services ([facility] RN services. )
[2021-10-11 13:24] VITALS: PULSE 104
== END 2021-10-11 14:01 | disposition home health service (06) | DRG 280 ==
LOC: ER 16:30 → MS 16:37
PROVIDERS: Internal Medicine; Admitting Provider Family Medicine; Emergency Provider Emergency Medicine; PCP Occupational Therapist; Visit Provider Family Medicine
DX: I11.0 Hypertensive heart disease with heart failure (principal); I50.33 Acute on chronic diastolic (congestive) heart failure; I21.A1 Myocardial infarction type 2; N17.9 Acute kidney failure, unspecified; E11.9 Type 2 diabetes mellitus without complications; E78.5 Hyperlipidemia, unspecified; Z79.84 Long term (current) use of oral hypoglycemic drugs; N40.0 Benign prostatic hyperplasia without lower urinary tract symptoms; K59.00 Constipation, unspecified; K21.9 Gastro-esophageal reflux disease without esophagitis; E03.9 Hypothyroidism, unspecified; I35.0 Nonrheumatic aortic (valve) stenosis; D50.9 Iron deficiency anemia, unspecified; R09.02 Hypoxemia
CPT/HCPCS: 36415; 80048; 80053; 80061; 84145; 86850; 86900; 86901; 86920; 87635; 93005; 96374; 99285; 71045; 83036; 83735; 83880; 84484; 85025; 85610; 85730; 93010; 99223; 99232; 99239; J1940; J1941; P9016

== ENCOUNTER 2021-10-25 14:47 | Observation (INO) | payer OTHER, SELFPAY ==
[2021-10-25] VITALS (37 sets, daily range): BP systolic 85–123; BP diastolic 32–60; PULSE 70–94; RESP 13–202; TEMP 36.6–37.6; O2SAT 93–100
--- NOTE | 2021-10-25 14:30 | RT.EKG_ITS ---
APPROVED REPORT Exam: Resting ECG Reason for Exam: sob Patient Location: E HR:74 bpm ECG Measurements Heart Rate 74 AXIS MA 200 P 8 QRSd 93 QRS -26 QT 394 T 32 QTc 438 Conclusion Sinus rhythm...normal P axis, V-rate 60- 99 Inferior infarct, old...Q >35mS, II III aVF Similar to 10/09/21
--- NOTE | 2021-10-25 15:00 | DI.RAD_ITS ---
Exam(s) XR PORTABLE CHEST AP EXAM: XR PORTABLE CHEST AP CLINICAL HISTORY: SOB, hx CHF. TECHNIQUE: 2D digital imaging was performed. COMPARISON: CR XR PORTABLE CHEST AP from 10/08/2021 FINDINGS: Single AP portable view. Cardiomegaly with left ventricular prominence. Time not widened Appearance of the lung boggs has improved when compared to 10/08/2021. No evidence of pulmonary darby ma this time. Also no pleural effusions. No pneumothorax. IMPRESSION: Cardiomegaly. No pulmonary edema at this time. DATA REPOSITORY: RADIATION DOSE DELIVERED: All CT scans at this facility use at least one of these dose optimization techniques: automated exposure control; mA and/or kV adjustment per patient size (includes targeted e xams where dose is matched to clinical indication); or iterative reconstruction.
[2021-10-25] MEDS: Aspirin 81 MG CHEW 162 MG PO (15:11)
--- NOTE | 2021-10-25 15:20 | ED.GENADUL_ITS ---
Discharge Plan Disposition Patient Disposition: [facility] INPATIENT Discharge Details Chief Complaint: SOB Clinical Impression: Anemia, Shortness of breath Primary Care Provider: SANDY ORTEGA ED Provider: Miller Hagen Home Meds and New Rx's Prescriptions: No Action terazosin 5 MG capsule 5 mg PO HS metformin 500 MG tablet 500 mg PO BID simvastatin 40 MG tablet 20 mg PO HS levothyroxine 100 MCG tablet 100 mcg PO DAILY omeprazole 20 MG capsule,delayed release(DR/EC) 20 mg PO DAILY oxybutynin chloride 5 MG tablet 10 mg PO DAILY alogliptin 12.5 mg tablet 12.5 mg PO DAILY cholecalciferol (vitamin D3) 50 mcg (2,000 unit) capsule 50 mcg PO DAILY ferrous gluconate 324 mg (38 mg iron) tablet 324 mg PO DAILY hydroxychloroquine 200 mg tablet 200 mg PO BID multivitamin Tablet 1 tab PO DAILY aspirin [Adult Aspirin Regimen] 81 mg tablet,delayed release (DR/EC) 81 mg PO DAILY omega 6-zyi-cga-fish oil [Fish Oil] 60-90-500 mg capsule 1 cap PO DAILY folic acid 1 mg Tablet 1 mg PO DAILY fiber Capsule 0 cap PO DAILY PRN PRN Rx Instructions: PER PT, TAKES FIBER PRN carboxymethylcellulose sodium 0.5 % Drops 1 drp ophthalmic (eye) QID PRN PRN Rx Instructions: 1 DROP BOTH EYES QID PRN FOR DRY EYES docusate sodium [Colace] 100 mg Capsule 100 mg PO BID Qty: 60 0RF furosemide 20 mg tablet See Rx Instructions .ROUTE .COMPLEX Qty: 45 0RF Rx Instructions: Take one tablet daily. Take an extra tablet if you've gained 3 lbs or greater in 3 days. magnesium oxide 400 mg magnesium capsule 400 mg PO DAILY Qty: 7 0RF furosemide 20 mg tablet 20 mg PO DAILY Qty: 10 0RF Rx Instructions: Take 20 mg of furosemide daily. Take an additional 20 mg if you have gained 3 lbs or greater in 3 days. docusate sodium [Colace] 100 mg capsule 100 mg PO BID Qty: 14 0RF Medical Decision Making 81-year-old male presents from home. He was recently admitted for CHF exacerbation at the end of September to the first 2 days of October. He followed up with the vision care associate at [facility]. Lives alone, no recent illness. Has not taken medication that was prescribed by [facility] cardiology after admission at the end of September/early October. It has yet to arrive in the mail. He had transient shortness of breath while making the bed this morning. He had to lie on the floor but did not have syncope. He now feels improved. Oxygenating normally. Basilar rales present. Screening labs, chest x-ray, EKG obtained. I obtained the patient's records from the [facility] from October 06. This states a history of moderate aortic stenosis, diabetes, hypertension, hypothyroidism and recent anemia with 6 to 8 weeks of progressive dyspnea. Current medication list obtained from the [facility] on October 25 includes terazosin, simvastatin, levothyroxine, hydrochlorothiazide/lisinopril, metformin, folic acid, hydroxychloroquine, omeprazole, oxybutynin, ferrous gluconate and methotrexate six 2-1/2 mg tablets once a week.. He has not started some of these medications due to the delay in the mail, including iron. On the patient's recent admission he had elevated troponins as high as 900 on October 09. Today it is 198 which is significantly lower than any of his previous recent comparisons. BNP of 866 improved from 2869. With mild exertion the p atient's heart rate will bump approximately 15 points. His chest x-ray today shows cardiomegaly but no acute pulmonary edema. On his recent admission he states he received a unit of blood. Today, his hemoglobin has gone back down to the sevens today 7.6. Platelets are 353. Chemistries note a BUN of 40 with a creatinine of 2.0 which is slightly worse than previous. Type and screen obtained. Reviewed recent echocardiogram noting proxy 1cm? aortic valve area and normal ejection fraction. Certainly do feel the patient is dependent on a fairly tenuous fluid balance. I do feel he would benefit from more oxygen carrying capacity and consented for transfusion of 1 unit of blood. him for 1 u blood transfusion. Case discussed with Dr. Glover. Case discussed with the patient's son Seamus. Patient to be admitted. HPI General Mode of arrival: ambulatory . Date/Time Provider Initiated Documentation: 10/25/21 14:54 . Limitations to Documentation: no limitations . Information obtained by: patient . History of Present Illness 81 year old M presents to the emergency department with the chief complaint of Shortness of breath, described as moderate, Quality is described as dull, and is localized to the chest. Patient reports no radiation. Patient started experiencing this minute(s) and it has been intermittent and now resolved. Movement improves symptom(s), Rest worsens symptoms . Patient notes weakness; denies chest pain, cough, fever/chills and syncope. Patient did receive the following treatments prior to arrival, none Related Data Home Medications Medication Instructions Recorded Confirmed levothyroxine 100 mcg tablet 100 mcg PO DAILY 11/10/17 10/25/21 metformin 500 mg tablet 500 mg PO BID 11/10/17 10/25/21 omeprazole 20 mg capsule,delayed 20 mg PO DAILY 11/10/17 10/25/21 release oxybutynin chloride 5 mg tablet 10 mg PO DAILY 11/10/17 10/25/21 simvastatin 40 mg tablet 20 mg PO HS 11/10/17 10/25/21 terazosin 5 mg capsule 5 mg PO HS 11/10/17 10/25/21 alogliptin 12.5 mg tablet 12.5 mg PO DAILY 05/25/21 10/25/21 aspirin 81 mg tablet,delayed 81 mg PO DAILY 05/25/21 10/25/21 release (Adult Aspirin Regimen) cholecalciferol (vitamin D3) 50 50 mcg PO DAILY 05/25/21 10/25/21 mcg (2,000 unit) capsule ferrous gluconate 324 mg (38 mg 324 mg PO DAILY 05/25/21 10/25/21 iron) tablet hydroxychloroquine 200 mg tablet 200 mg PO BID 05/25/21 10/25/21 multivitamin 1 tab PO DAILY 05/25/21 10/25/21 omega 8-muv-csm-fish oil 60 mg-90 1 cap PO DAILY 05/25/21 10/25/21 mg-500 mg capsule (Fish Oil) carboxymethylcellulose sodium 0.5 1 drp ophthalmic (eye) QID PRN PRN 10/10/21 10/25/21 % eye drops fiber 0 cap PO DAILY PRN PRN 10/10/21 10/25/21 folic acid 1 mg tablet 1 mg PO DAILY 10/10/21 10/25/21 docusate sodium 100 mg capsule 100 mg PO BID #14 caps 10/11/21 10/25/21 (Colace) docusate sodium 100 mg capsule 100 mg PO BID #60 caps 10/11/21 10/25/21 (Colace) furosemide 20 mg tablet 20 mg PO DAILY #10 tabs 10/11/21 10/25/21 furosemide 20 mg tablet See Rx Instructions .Route 10/11/21 10/25/21 .COMPLEX #45 tabs magnesium oxide 400 mg PO DAILY #7 caps 10/11/21 10/25/21 Previous Rx's Medication Instructions Recorded docusate sodium 100 mg capsule 100 mg PO BID #14 caps 10/11/21 (Colace) docusate sodium 100 mg capsule 100 mg PO BID #60 caps 10/11/21 (Colace) furosemide 20 mg tablet 20 mg PO DAILY #10 tabs 10/11/21 furosemide 20 mg tablet See Rx Instructions .Route 10/11/21 .COMPLEX #45 tabs magnesium oxide 400 mg PO DAILY #7 caps 10/11/21 Allergies Allergy/AdvReac Type Severity Reaction Status Date / Time No Known Allergies Allergy Unverified 10/25/21 15:14 General Stated Complaint: SOB MEL: 2 Review of Systems Narrative: Diarrhea today. Weakness that required him to lay on the floor. Did not have syncope or chest pain. Lives alone, no recent illness. Has not taken medication that was prescribed by [facility] cardiology after admission at the end of September/early October. It has yet to arrive in the mail. See HPI, 8 systems were reviewed and otherwise negative PFSH All Active Problems (Updated 10/25/21 @ 18:13 by Miller Hagen MD) Symptomatic severe aortic stenosis with normal ejection fraction (Acute) Acute on chronic diastolic heart failure (Acute) NSTEMI (non-ST elevated myocardial infarction) (Acute) CHF (congestive heart failure) (Chronic) Abnormal prostate by palpation (Acute) Anemia (Chronic) Shortness of breath (Acute) Positive FIT (fecal immunochemical test) (Acute) Constipation (Acute) Tubular adenoma of colon (Acute) Medical History BPH (benign prostatic hyperplasia) Diabetes Erectile dysfunction GERD (gastroesophageal reflux disease) Hyperlipidemia Hypertension Hypothyroid Nonrheumatic aortic (valve) stenosis Osteoarthritis Surgical History History of colonoscopy (~01/2012) 06/2021 Hx of neck surgery gland excised Family History Mother Breast cancer Father Stroke Social History Smoking/Tobacco Use Status: Former Tobacco Use Quit Date: 03/13/89 Smoking risk assessment performed?: Yes Alcohol Intake: current Alcohol Intake frequency: holidays/special occasions only Drug use: Never Substance use type: does not use Do you feel safe at home: Yes Do you feel safe in your relationship?: Yes Exam Narrative Exam Narrative: GEN: awake, alert, oriented 3. Pleasant, well groomed, interactive. HEAD: Normocephalic, atraumatic ENT: Mucous membranes moist, oropharynx unremarkable, External ear exam unremarkable EYES: PERRL, EOMI NECK: Full ROM, no FRANCY, no menigismus CHEST/RESP: Nontender, faint basilar rales CARDIOVASCULAR: RRR, no murmur, rub mayito. 2+ Rad pulse bilateral ABDOMEN: Soft, nontender, no mass. +Bowel sounds. Normal rectal tone, guaiac positive dark stool. EXT: Full ROM, no edema, no rash Neuro: Grossly normal neurologic exam, conversant, interactive. Psych: Speech fluent, thoughts congruent, affect normal Course Vital Signs Vital signs: Vital Signs Temperature 37.0 C 10/25/21 14:47 Pulse 80 10/25/21 14:47 Respiratory Rate 16 10/25/21 14:47 Blood Pressure 88/32 L 10/25/21 14:47 Pulse Oximetry 99 10/25/21 14:47 Temperature 37.0 C 10/25/21 14:47 Temperature Source Temporal Artery Scan 10/25/21 14:47 Pulse 80 10/25/21 14:47 Respiratory Rate 202 H 10/25/21 15:11 Respiratory Effort 10/25/21 15:13 Respiratory Depth Normal 10/25/21 15:11 Respiratory Pattern Normal 10/25/21 15:11 Blood Pressure 88/32 L 10/25/21 14:47 Blood Pressure Position Sitting 10/25/21 14:47 Pulse Oximetry 99 10/25/21 14:47 Oxygen Delivery Method Room Air 10/25/21 14:47 Oxygen Flow Rate 0 10/25/21 14:47 Pain Level 0 10/25/21 14:47
[2021-10-25 15:27] LABS: Abs Immature Grans 0.07 10^3/uL (0.0-0.06); Absolute Basophil Count 0.03 10^3/uL (0.0-0.2); Absolute Monocyte Count 0.64 10^3/uL (0.1-0.8); Basophils % 0.2; Eosinophils % 0.2; HCT 24.8 % (40.0-50.0); HGB 7.6 g/dL (13.5-17.5); Immature Grans % 0.6; Lymphocytes % 5.8; MCH 25.3 pg (27.0-33.0); MCHC 30.6 % (32.0-36.0); MCV 83 fL (80-95); Monocytes % 5.1; Neutrophils % 88.1; Platelet Count 353 10^3/uL (130-400); RDW 14.6 % (11.8-14.1); WBC 12.51 10^3/uL (4.4-10.8)
[2021-10-25 15:29] LABS: Absolute Eosinophil Count 0.03 10^3/uL (0.0-0.7); Absolute Lymphocyte Count 0.73 10^3/uL (1.2-3.4); Absolute Neutrophil Count 11.02 10^3/uL (1.2-6.7)
[2021-10-25 15:29] LABS: Source Nasal/Nares
[2021-10-25 15:58] LABS: ALT 15 U/L (16-63); AST 12 U/L (15-37); Albumin 3.4 g/dL (3.4-5.0); Alkaline Phosphatase 60 U/L (46-116); Anion Gap 12.7 mmol/L (3-11); BUN 40 mg/dL (7-18); Bilirubin, Total 0.3 mg/dL (0.2-1.0); CO2 20.3 mmol/L (21.0-32.0); Chloride 100 mmol/L (98-107); Estimated GFR 32.39 (mL/min/1.73m2); Glucose 129 mg/dL (74-106); Magnesium 1.9 mg/dL (1.8-2.4); NT-proBNP 866 pg/mL (<300); Potassium 4.5 mmol/L (3.5-5.1); Sodium 133 mmol/L (136-145); Total Protein 6.7 g/dL (6.4-8.2)
[2021-10-25 16:03] LABS: COVID-19 PCR Negative (Negative)
[2021-10-25 16:12] LABS: Troponin I 198 ng/L (<or=60)
--- NOTE | 2021-10-25 17:12 | HPE_ITS ---
Date of service: 10/25/21 Time of Service: 17:12 Assessment and Plan Assessment and plan (1) Anemia: Status: Chronic Assessment and plan: recurrent anemia probably d/t chronic blood loss. patient needs GI workup but given his severe , it will not likely occur here at [facility] unless he has severe acute bleeding. We will transfuse him tonight to Hb over 8 gm and I have increased his GI protection w/ doubling his prilosec dose to 40 mg but increasing to bid and adding carafate. He should have GI follow up for EGD +/- c-scope. (2) Symptomatic severe aortic stenosis with normal ejection fraction: Status: Acute Assessment and plan: given his second admission w/ elevated troponin I levels he ought to have follow up echocardiogram, although I did bedside POCUS and his LV systolic function appears low normal, but I am sure he has diastolic CHF as he has LVH on echo. I did not detect any regional wall motion abnormalities. I will get formal echo in the morning. In the interim we will trend his troponin I level but in light of his anemia and heme postive stools we withold any antiplatelet drugs (3) NSTEMI (non-ST elevated myocardial infarction): Status: Acute Assessment and plan: probably d/t demand ischemia from his anemia and underlying A.S. (4) Diabetes: Assessment and plan: hold his metformin and his alogliptin; will monitor glucose ac/hs and cover with insulin sensitive sliding scale. History of Present Illness History of Present Illness Chief Complaint: Dizzy, lightheaded, diarrhea Narrative: 81-year-old male who presented via EMS from his home in [facility] who was recently hospitalized at [facility] from 10/08/2021 through 10/11/2021 and treated for acute on chronic diastolic heart failure and worsening chronic anemia. Patient has known severe aortic stenosis as well as type 2 diabetes mellitus, chronic diastolic heart failure related to his aortic stenosis along with chronic anemia with prior history of GI bleeding during that hospitalization presented with acute congestive heart failure with hypoxemia and worsening anemia and sustained a type II NSTEMI due to his hypoxemia anemia. At that time his hemoglobin 7.1. Patient was given 1 unit packed red blood cells and his hemoglobin came up to 8.4 g. His IV diuretics were switched to oral diuretics. His troponin I level presented at 137 and peaked at 947. Because of his acute GI bleeding he was not placed on dual antiplatelet therapy nor was he anticoagulated. An echocardiogram was not performed during that admission. His last echocardiogram here at [facility] was from 06/08/2021 which at that time showed normal left ventricular wall thickness and chamber size with an LVEF of 55 to 60% with no wall motion abnormalities and normal right ventricular size and function. He did have moderate to severe aortic stenosis with a calculated aortic valve area 1.07 cm? and mild aortic regurgitation and mild mitral vegetation. He was discharged from the hospital to follow-up with the [facility]. Patient reports he did see his [place] doctor in [facility] and was post to go back this Monday for follow-up testing. In the interim he had an episode this morning of severe diarrhea dark stools but no bright red rectal bleeding. He felt very weak lightheaded felt like he was get a pass out but did not actually lose consciousness. He lowered himself to the bathroom floor. He then called EMS. On arrival to the ED this afternoon he was hypotensive with blood pressure 88/32 but after fluid boluses blood pressure came up into the high 90s and low 100s. Blood pressure since then has remained stable at 123/59. He is not hypoxemic his O2 saturation is 99% on room air. Laboratory work-up showed that he had worsening anemia with a hemoglobin of 7.6 g hematocrit 24%. According to Dr. Hagen his stool shows trace positive for occult blood. He has some worsening of his chronic renal failure with his BUN elevated at 40 creatinine elevated 2.0 it appears during his last admission his discharge creatinine level was 1.6. LFTs are normal but he does have an elevation of his troponin I level of 198 with an elevated proBNP of 866. Of note his last proBNP was as high as 2800. He has been typed and screened and will be admitted overnight for transfusion of packed red blood cells. At home he was post be taking omeprazole 20 mg daily. We will add Carafate to his regimen and increase his omeprazole to 40 mg twice daily. He currently denies any chest pain or pressure and denies any abdominal pain. He says he was feeling dyspnea with any activity and felt very weak t lida. Review of Systems All systems reviewed & are unremarkable except as noted in HPI and below Constitutional Constitutional: Reports lethargy and Reports weakness Cardiovascular Cardiovascular: Denies chest pain, Denies syncope, Reports dyspnea and Reports d yspnea on exertion Respiratory Respiratory: Reports dyspnea and Reports dyspnea on exertion Gastrointestinal Gastrointestinal: Denies abdominal pain, Denies melena, Denies hematochezia, Denies cramping, Reports diarrhea (Several watery stools today), Denies nausea and Denies vomiting Genitourinary Genitourinary: Reports system reviewed and no additional complaints, except as documented Musculoskeletal Musculoskeletal: Reports system reviewed and no additional complaints, except as documented Neurologic Neurologic: Denies syncope and Reports weakness Endocrine Endocrine: Reports system reviewed and no additional complaints, except as documented Hematologic/Lymphatic Hematologic/Lymphatic: Reports system reviewed and no additional complaints, except as documented PFSH All Active Problems (Updated 10/25/21 @ 19:01 by Seth Velez MD) Symptomatic severe aortic stenosis with normal ejection fraction (Acute) Acute on chronic diastolic heart failure (Acute) NSTEMI (non-ST elevated myocardial infarction) (Acute) CHF (congestive heart failure) (Chronic) Abnormal prostate by palpation (Acute) Anemia (Chronic) Shortness of breath (Acute) Positive FIT (fecal immunochemical test) (Acute) Constipation (Acute) Tubular adenoma of colon (Acute) Medical History BPH (benign prostatic hyperplasia) Diabetes Erectile dysfunction GERD (gastroesophageal reflux disease) Hyperlipidemia Hypertension Hypothyroid Nonrheumatic aortic (valve) stenosis Osteoarthritis Surgical History History of colonoscopy (~01/2012) 06/2021 Hx of neck surgery gland excised Family History Mother Breast cancer Father Stroke Social History Smoking/Tobacco Use Status: Former Tobacco Use Quit Date: 03/13/89 Smoking risk assessment performed?: Yes Alcohol Intake: current Alcohol Intake frequency: holidays/special occasions only Drug use: Never Substance use type: does not use Do you feel safe at home: Yes Do you feel safe in your relationship?: Yes Meds Allergies and Home Medications Allergies Allergy/AdvReac Type Severity Reaction Status Date / Time No Known Allergies Allergy Unverified 10/25/21 15:14 Home Medications Medication Instructions Recorded Confirmed Type levothyroxine 100 mcg tablet 100 mcg PO DAILY 11/10/17 10/25/21 History metformin 500 mg tablet 500 mg PO BID 11/10/17 10/25/21 History omeprazole 20 mg capsule,delayed 20 mg PO DAILY 11/10/17 10/25/21 History release oxybutynin chloride 5 mg tablet 10 mg PO DAILY 11/10/17 10/25/21 History simvastatin 40 mg tablet 20 mg PO HS 11/10/17 10/25/21 History terazosin 5 mg capsule 5 mg PO HS 11/10/17 10/25/21 History alogliptin 12.5 mg tablet 12.5 mg PO DAILY 05/25/21 10/25/21 History aspirin 81 mg tablet,delayed 81 mg PO DAILY 05/25/21 10/25/21 History release (Adult Aspirin Regimen) cholecalciferol (vitamin D3) 50 50 mcg PO DAILY 05/25/21 10/25/21 History mcg (2,000 unit) capsule ferrous gluconate 324 mg (38 mg 324 mg PO DAILY 05/25/21 10/25/21 History iron) tablet hydroxychloroquine 200 mg tablet 200 mg PO BID 05/25/21 10/25/21 History multivitamin 1 tab PO DAILY 05/25/21 10/25/21 History omega 8-lss-lve-fish oil 60 mg-90 1 cap PO DAILY 05/25/21 10/25/21 History mg-500 mg capsule (Fish Oil) carboxymethylcellulose sodium 0.5 1 drp ophthalmic (eye) QID PRN PRN 10/10/21 10/25/21 History % eye drops fiber 0 cap PO DAILY PRN PRN 10/10/21 10/25/21 History folic acid 1 mg tablet 1 mg PO DAILY 10/10/21 10/25/21 History docusate sodium 100 mg capsule 100 mg PO BID #14 caps 10/11/21 10/25/21 Rx (Colace) docusate sodium 100 mg capsule 100 mg PO BID #60 caps 10/11/21 10/25/21 Rx (Colace) furosemide 20 mg tablet 20 mg PO DAILY #10 tabs 10/11/21 10/25/21 Rx furosemide 20 mg tablet See Rx Instructions .Route 10/11/21 10/25/21 Rx .COMPLEX #45 tabs magnesium oxide 400 mg PO DAILY #7 caps 10/11/21 10/25/21 Rx Exam Narrative Exam Narrative: Alert and oriented x4 HEENT: Atraumatic normocephalic, pupils equally round reactive to light and accommodation, extraocular motion intact, TMs intact, nares moist and patent without exudate or bleeding, oropharynx noninjected without exudate, conjunctivae are pale; no icterus Neck: Supple, nontender, without thyromegaly or lymphadenopathy or JVD. diminished upstroke w/out bruits Lungs: bibasilar rales; no rhonchi or wheezing Heart: Regular rate and rhythm w/ grade 3/6 systolic murmur over aortic outflow tract; no thrill Abdomen: Nondistended, normal bowel sounds, nontender to palpation or percussion, no organomegaly, no bruits, no palpable masses Genitalia and rectal exam: Deferred (rectal as per Dr. Hagen) Extremities: Normal range of motion with normal strength. No peripheral cyanosis or edema. Normal pulses Neurologic: Cranial nerves II through XII grossly within normal limits. Normal strength and sensation over the face trunk and extremities. Results Imaging Chest x-ray: report reviewed and image reviewed EKG: report reviewed and image reviewed (I have independently reviewed his ECG and compared to prior, he has NSR w/ borderline LVH, IWMI of indeterminate age but cited on/before 09/23/20) Labs Result diagrams: 10/25/21 15:05 10/25/21 15:05 Labs: Laboratory Results - last 24 hr 10/25/21 10/25/21 10/25/21 15:05 15:05 15:05 WBC 12.51 H RBC 3.00 L Hgb 7.6 L Hct 24.8 L MCV 83 MCH 25.3 L MCHC 30.6 L RDW 14.6 H Plt Count 353 MPV 10.0 Immature Gran % 0.6 Neutrophils % 88.1 Lymphocytes % 5.8 Monocytes % 5.1 Eosinophils % 0.2 Basophils % 0.2 Nucleated RBC % 0.0 Absolute Neutrophils 11.02 H Absolute Lymphocytes 0.73 L Absolute Monocytes 0.64 Absolute Eosinophils 0.03 Absolute Basophils 0.03 Sodium 133 L Potassium 4.5 Chloride 100 Carbon Dioxide 20.3 L Anion Gap 12.7 H BUN 40 H Creatinine 2.0 H Estimated GFR/1.73 m2 32.39 Glucose 129 H Calcium 9.0 Magnesium 1.9 Total Bilirubin 0.3 AST 12 L ALT 15 L Alkaline Phosphatase 60 Troponin I 198 H* NT-Pro-B Natriuret Pep 866 H Total Protein 6.7 Albumin 3.4 COVID-19 Source SARS-CoV-2 (PCR) Patient ABO/Rh O Positive Antibody Screen NEGATIVE 10/25/21 15:24 WBC RBC Hgb Hct MCV MCH MCHC RDW Plt Count MPV Immature Gran % Neutrophils % Lymphocytes % Monocytes % Eosinophils % Basophils % Nucleated RBC % Absolute Neutrophils Absolute Lymphocytes Absolute Monocytes Absolute Eosinophils Absolute Basophils Sodium Potassium Chloride Carbon Dioxide Anion Gap BUN Creatinine Estimated GFR/1.73 m2 Glucose Calcium Magnesium Total Bilirubin AST ALT Alkaline Phosphatase Troponin I NT-Pro-B Natriuret Pep Total Protein Albumin COVID-19 Source Nasal/Nares SARS-CoV-2 (PCR) Negative Patient ABO/Rh Antibody Screen Last Vital Signs Temp 37.0 C 10/25/21 14:47 Pulse 77 10/25/21 16:46 Resp 21 10/25/21 16:50 BP 107/43 L 10/25/21 16:46 Pulse Ox 98 10/25/21 16:50
[2021-10-25] MEDS: Hydroxychloroquine 200 MG TAB PO (19:34)
[2021-10-25] MEDS: Sucralfate 1 GM TAB PO (19:34)
[2021-10-25] MEDS: Omeprazole 20 MG CAPCR 40 MG PO (19:35)
[2021-10-25] MEDS: Docusate Sodium 100 MG CAP PO (19:35)
[2021-10-25 19:39] LABS: Troponin I 3518 ng/L (<or=60)
--- NOTE | 2021-10-25 19:45 | RT.EKG_ITS ---
APPROVED REPORT Exam: Resting ECG Reason for Exam: Elevated troponin Patient Location: I HR:72 bpm ECG Measurements Heart Rate 72 AXIS MT 184 P -11 QRSd 93 QRS -25 QT 379 T 25 QTc 415 Conclusion Sinus rhythm...normal P axis, V-rate 50- 99 Left ventricular hypertrophy...multiple voltage criteria
[2021-10-25] MEDS: Simvastatin 40 MG TAB 20 MG PO (21:19)
[2021-10-25] MEDS: Insulin Aspart 300 UNITS/3 ML PEN SC (21:19)
[2021-10-25 22:12] LABS: HCT 25.5 % (40.0-50.0); HGB 7.9 g/dL (13.5-17.5)
[2021-10-26] VITALS (9 sets, daily range): BP systolic 106–116; BP diastolic 50–58; PULSE 69–80; RESP 17–20; TEMP 36.4–37.7; O2SAT 96–99
--- NOTE | 2021-10-26 | DI.US_ITS ---
APPROVED REPORT EXAM: Comprehensive 2D, Doppler, and color-flow Echocardiogram Patient Location: In-Patient Room/Bed: 225 Ophthalmic Medical Assistant: Marce Means RDCS (AE) Indications: NSTEMI, aortic stenosis, Evaluate LV function Other Information Study Quality: Fair Conclusion Normal left ventricular wall thickness and chamber size. Estimated ejection fraction is 55%. The po sterior wall may be mildly hypocontractile Right atrium and right ventricle were not well visualized Left atrial size is normal The aortic valve is calcified. There is moderate aortic regurgitation. There is moderate to severe aortic stenosis with a peak gradient of 68, mean of 38 mmHg. Calculated aortic valve area is 1.02 ce ntimeters squared Mild mitral annular calcification. Moderate mitral regurgitation Normal tricuspid valve with trace to mild regurgitation. Estimated right ventricular systolic pressu re is 30 mmHg Mildly dilated ascending aorta measuring 3.81 cm Wall motion Left Ventricle The left ventricle is normal size. The left ventricular systolic function is normal. The left ventric ular ejection fraction is within the normal range. There is normal left ventricular wall thickness. P osterior wall may be mildly hypokinetic There is no ventricular septal defect visualized. LVEF 55% Right Ventricle Right ventricle is not well visualized. Right ventricular systolic function could not be assessed. Th e RVSP is 29.6mmHg. Atria The left atrium size is normal. Right atrium is not well visualized. The interatrial septum is intact with no evidence for an atrial septal defect. Aortic Valve Aortic valve is calcified. Moderate to severe aortic stenosis. Peak aortic valve gradient is60.5_mmHg . Highest mean aortic valve gradient is 37.9mmHg. Calculated MARCELLA by the continuity equation is 1.02cm 2. Moderate aortic regurgitation. Mitral Valve Mild mitral annular calcification. No evidence of mitral valve stenosis. Moderate mitral regurgitatio n. Tricuspid Valve The tricuspid valve is normal in structure. There is no tricuspid valve stenosis. Trace to mild tricu spid regurgitation. Pulmonic Valve The pulmonary valve is normal in structure. There is no pulmonic valvular stenosis. Trace pulmonic re gurgitation. Great Vessels The aortic root is normal in size. The ascending aorta is mildly dilated. Aortic arch is normal in ca liber. IVC is normal in size and collapses >50% with inspiration. Pericardium There is no pericardial effusion. 2D Dimensions IVSD d PLAX 1.02 cm M: 0.6-1.2 LV Vol A2C d MOD 164.3 mL LVPW d PLAX 1.06 cm M: 0.6 - 1.2 LV Vol A4C d MOD 183.3 mL LVID d PLAX 5.57 cm M: 4.2 - 5.8 LA vol/ BSA A2C s A-L 29.7 mL/m2 LVDs 3.80 cm M: 2.5 - 4.0 LA vol/ BSA A4C s A-L 43.0 mL/m2 Ao Root d 3.44 cm M: 3.1 - 3.7 LA Vol/ BSA Biplane s A-L 39.0 mL/m2 Ao Asc Diam d 3.81 cm M: 2.6 - 3.4 LA Area A4C s MOD 23.98 cm2 LV EF Teichholz 59.1 % LA Area A2C s MOD 18.26 cm2 LVEF (Oneal's) 52.14 % M: 52 - 72 LV EF A4C MOD 55.3 % LV Volume 136.86 mL M: 62 - 150 LV EF A2C MOD 50.5 % LV Volume Index 75.19 mL/m2 M: 34 - 74 LV EF Biplane MOD 52.1 % LV Vol Biplane MOD 176.8 mL SV 92.20 mL FS 31.70 % SV Index 50.51 mL/m2 M-Mode TAPSE 3.08 cm (M/F) >1.7 LV Diastology MV E' medial 0.086 (>0.07 m/s) E/A Ratio 1.3 LV E/e MED 13.00 (<14) MV E Vmax 1.12 (0.4-1.3 m/s) MV E' lateral 0.127 (>0.1 m/s) MV A Vmax 0.85 (0.4-1.3 m/s) LV E/e LAT 8.80 (<14) MV E/A Ratio 1.28 MV E/E' medial 13.02 MV E/E' lateral 8.85 Aortic Valve LVOT Area 3.54 cm2 AoV Area Vmax 1.02 cm2 LVOT Vmax 1.12 m/s AoV Area/ BSA (Vmax) 0.56 cm2/m2 LVOT Mean Naresh. 0.78 m/s MARCELLA Mean Naresh. 0.93 cm2 LVOT Peak Grad 5.0 mmHg MARCELLA Mean Naresh. Index 0.51 cm2/m2 LVOT Mean Grad 2.8 mmHg AR DT 1084 msec LVOT VTI 0.250 m AR PHT 314 msec LVOT Diam s 2.10 cm AoV Vmax 3.89 m/s Velocity Ratio 0.28 AoV Mean Naresh. 2.96 m/s AoV Peak Grad 60.5 mmHg LVOT SV 88.52 mL AoV Mean Grad 37.9 mmHg AoV VTI 0.817 m AoV Area VTI 1.08 cm2 AoV Area/ BSA (VTI) 0.59 cm/m2 Mitral Valve MV DT 191 (160-240 msec) MR Vmax 4.99 m/s MV PHT 55 msec MR VTI 1.590 m MV Area PHT 3.98 cm2 MR Peak Grad 99.5 mmHg MV VTI 0.385 m MR Mean Grad 68.7 mmHg MV VTI Annulus 0.384 m MR PISA Radius 0.42 cm MV Area VTI 2.29 (4.0-6.0 cm2) MR EROA 0.08 cm2 MR Aliasing Velocity 0.35 m/s MR PISA 1.11 cm2 Pulmonary Valve RVOT Peak Gr. 1.64 mmHg RVOT Mean Gr. 0.80 mmHg RVOT VTI 0.115 m RVOT Vmax 0.64 m/s Tricuspid Valve TR Peak Grad 26.6 mmHg TR Vmax 2.58 m/s RA Pressure 3.00 mmHg RVSP (TR) 29.6 mmHg
[2021-10-26] MEDS: Levothyroxine 100 MCG TAB PO (05:53)
[2021-10-26 06:08] LABS: Abs Immature Grans 0.04 10^3/uL (0.0-0.06); Absolute Basophil Count 0.02 10^3/uL (0.0-0.2); Absolute Eosinophil Count 0.07 10^3/uL (0.0-0.7); Absolute Lymphocyte Count 1.24 10^3/uL (1.2-3.4); Absolute Monocyte Count 1.01 10^3/uL (0.1-0.8); Absolute Neutrophil Count 9.78 10^3/uL (1.2-6.7); Basophils % 0.2; Eosinophils % 0.6; HCT 29.8 % (40.0-50.0); HGB 9.3 g/dL (13.5-17.5); Immature Grans % 0.3; Lymphocytes % 10.2; MCH 25.8 pg (27.0-33.0); MCHC 31.2 % (32.0-36.0); MCV 83 fL (80-95); MPV 10.1 fL (8.0-11.0); Monocytes % 8.3; Neutrophils % 80.4; Platelet Count 332 10^3/uL (130-400); RDW 14.6 % (11.8-14.1); RDW-SD 44.5 fL; WBC 12.16 10^3/uL (4.4-10.8)
[2021-10-26 06:30] LABS: Anion Gap 7.2 mmol/L (3-11); BUN 36 mg/dL (7-18); CO2 23.8 mmol/L (21.0-32.0); CREATININE 1.6 mg/dL (0.70-1.30); Chloride 104 mmol/L (98-107); Glucose 114 mg/dL (74-106); Potassium 4.9 mmol/L (3.5-5.1); Sodium 135 mmol/L (136-145)
[2021-10-26 06:32] LABS: Troponin I 3528 ng/L (<or=60)
[2021-10-26 07:51] LABS: Lab Add On Test DONE
[2021-10-26 08:04] LABS: Iron 113 ug/dL (65-175)
[2021-10-26] MEDS: Normal Saline Flush 10 ML SYR IVP ×2 (08:26→14:41)
[2021-10-26] MEDS: Omeprazole 20 MG CAPCR 40 MG PO (08:27)
[2021-10-26] MEDS: Cholecalciferol (Vitamin D3) 1,000 UNIT TAB 2000 UNITS PO (08:27)
[2021-10-26] MEDS: Oxybutynin 5 MG TAB 10 MG PO (08:28)
[2021-10-26] MEDS: Folic Acid 1 MG TAB PO (08:28)
[2021-10-26] MEDS: Sucralfate 1 GM TAB PO (08:28)
[2021-10-26] MEDS: Multivitamin TAB 1 TAB PO (08:28)
[2021-10-26] MEDS: Docusate Sodium 100 MG CAP PO (08:28)
[2021-10-26] MEDS: Omega-3 Fatty Acids 1000 MG CAP PO (08:28)
[2021-10-26] MEDS: Ferrous Gluconate 324 MG TAB PO (08:28)
[2021-10-26] MEDS: Hydroxychloroquine 200 MG TAB PO (08:28)
[2021-10-26] MEDS: Magnesium Oxide 400 MG TAB PO (08:29)
[2021-10-26 08:31] LABS: Calculated LDL 36 mg/dL (<100); Cholesterol 95 mg/dL (<200); Ferritin 14 ng/mL (26-388); HDL Cholesterol 45 mg/dL (40-60); Triglyceride 72 mg/dL (<150); Vitamin B12 1536 pg/mL (193-986)
[2021-10-26 08:32] LABS: Folate > 20.0 ng/mL (8.6-20.0)
--- NOTE | 2021-10-26 08:36 | PDOC.CMIN ---
- If Service Date Differs Date of service: 10/26/21 Time of Service: 08:36 Care Management Initial Assess REASON FOR HOSPITALIZATION:: Chronic blood loss PAST MEDICAL HISTORY/PAST SURGICAL HISTORY:: All Active Problems (Updated 10/25/21 @ 19:01 by Seth Velez MD). Symptomatic severe aortic stenosis with normal ejection fraction (Acute). Acute on chronic diastolic heart failure (Acute). NSTEMI (non-ST elevated myocardial infarction) (Acute). CHF (congestive heart failure) (Chronic). Abnormal prostate by palpation (Acute). Anemia (Chronic). Shortness of breath (Acute). Positive FIT (fecal immunochemical test) (Acute). Constipation (Acute). Tubular adenoma of colon (Acute). Medical History . BPH (benign prostatic hyperplasia). Diabetes. Erectile dysfunction. GERD (gastroesophageal reflux disease). Hyperlipidemia. Hypertension. Hypothyroid. Nonrheumatic aortic (valve) stenosis. Osteoarthritis. Surgical History . History of colonoscopy (~01/2012). 06/2021. Hx of neck surgery. gland excised PREVIOUS FUNCTIONAL STATUS/SOCIAL/FAMILY SUPPORTS:: Jacob lives alone in [place], [place]. He has one son, Seamus, who resides in [place]. Jacob is a and was in the [employer] for over 4 years. 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 He enjoys watching sports on television and is independent at baseline. ADVANCE DIRECTIVES:: None on file at [facility]. Has patient been provided with info about the portal/API?: Yes Did the patient sign up for the portal?: Yes CODE STATUS:: DNR/DNI INSURANCE COVERAGE / FINANCIAL ISSUES:: [employer]. Medicare CURRENT HOME/COMMUNITY SERVICES/EQUIPMENT:: No home/community services. Jacob owns a cane but does not need it for ambulation. PRIMARY CARE PHYSICIAN:: Geri Live POTENTIAL DISCHARGE NEEDS:: Follow up appointments, [facility] and [facility] Referrals. Portal Access PATIENT/FAMILY EDUCATION NEEDS:: Review discharge instructions, limitations, medications and plan to follow up with community providers. ask me three. TRANSPORTATION:: Via private vehicle with a friend or via RCT. PLAN:: Jacob requires close monitoring and further medical work up. He will likely be discharged home with outpatient follow up appointments, when medically cleared by provider. He will be transported home via RCT vs private vehicle with a friend when ready. New [facility] will be ordered, if needed. CM will continue to follow. Readmission - Within the Past 30 Days Yes or No: Y - Date of First Admission Date of 1st Admission: 10/08/21 - Date of this Admission Date of Admission: 10/25/21 This admission was: Through ED
--- NOTE | 2021-10-26 09:52 | PT.INIE ---
Date of service: 10/26/21 Time of Service: 09:52 PT Notes Visit Reasons: Chronic Blood Loss Anemia Physical Therapy Inpatient Initial Evaluation Date: 10/26/2021 Referring Doctor: Seth Glover MD PT Orders: PT CONSULT: Fall safety assessment Precautions: Fall. Standard. Activity as tolerated. Patient Profile/Admitting Diagnosis: Leonela is a 81-year-old male who presented to the ED on 10/25/2021 due to shortness of breath. Patient is diagnosed with anemia, symptomatic severe aortic stenosis with normal ejection fraction, NSTEMI, and diabetes mellitus. PMHX: All Active Problems?(Updated 10/25/21 @ 19:01 by Seth Velez MD) Symptomatic severe aortic stenosis with normal ejection fraction (Acute) Acute on chronic diastolic heart failure (Acute) NSTEMI (non-ST elevated myocardial infarction) (Acute) CHF (congestive heart failure) (Chronic) Abnormal prostate by palpation (Acute) Anemia (Chronic) Shortness of breath (Acute) Positive FIT (fecal immunochemical test) (Acute) Constipation (Acute) Tubular adenoma of colon (Acute) Medical History? BPH (benign prostatic hyperplasia) Diabetes Erectile dysfunction GERD (gastroesophageal reflux disease) Hyperlipidemia Hypertension Hypothyroid Nonrheumatic aortic (valve) stenosis Osteoarthritis Surgical History? History of colonoscopy (~01/2012) 06/2021 Hx of neck surgery gland excised Social History/Home Situation: Lives alone in a mobile home with 3 steps to enter with rails on both sides. Independent with all aspects of ADLs without a walker nor a single-point cane use. Still drives. Does his own grocery shopping. Has somebody who comes in twice a week to mow his lawn in the summer and plow the same in the wintertime. Was in the [employer] for 4 years. Equipment Owned/DME: [employer], Subjective: Agreeable to PT consult. Reports being better the first time he was here after receiving 1 plan of blood than 2 days after having received 2 pints of blood the previous day. A little worried about his bloody sputum this morning. Nurse Nessa siu. Objective: General Observation: Telemetry monitoring in place.. In NAD. Mental Status: Alert and oriented as to person, place, time, and purpose. Able to pay attention, focus, and respond appropriately. Pain: Denies Vital Signs: WNL as closley monitored via tele ROM: Right Upper Extremity: Shoulder Flexion WFL. Shoulder abduction WFL. Elbow flexion WFL. Wrist flexion WFL. Functional opening and closing of hand WFL. Left Upper Extremity: Shoulder Flexion WFL. Shoulder abduction WFL. Elbow flexion WFL. Wrist flexion WFL. Functional opening and closing of hand WFL. Right Lower Extremity: Hip flexion WFL. Hip abduction WFL. Knee flexion WFL. Ankle dorsiflexion WFL. Ankle plantarflexion WFL. Left Lower Extremity: Hip flexion WFL. Hip abduction WFL. Knee flexion WFL. Ankle dorsiflexion WFL. Ankle plantarflexion WFL. Strength: Right Upper Extremity: Shoulder flexors 4-/5. Shoulder abductors 4-/5. Elbow flexors 4-/5. Elbow extensors 4-/5. Area Attendant strong. Left Upper Extremity: Shoulder flexors 4-/5. Shoulder abductors 4-/5. Elbow flexors 4-/5. Elbow extensors 4-/5. Area Attendant strong. Right Lower Extremity: Hip flexors 4/5. Hip abductors 4/5. Knee flexors 4/5. Knee extensors 4/5. Ankle dorsiflexors 4/5. Ankle plantarflexors 4/5. Left Lower Extremity: Hip flexors 4/5. Hip abductors 4/5. Knee flexors 4/5. Knee extensors 4/5. Ankle dorsiflexors 4/5. Ankle plantarflexors 4/5. Bed Mobility/Transfers: Rolling independent Supine to sit independent Sit to supine independent Sit to stand independent Stand to sit independent Bed to reclining chair supervision Reclining chair to bed supervision Gait: Instructed patient with level surface ambulation of 150 feet requiring supervision assist, no device used. Sarai decreased. Minimal shortness of breath requiring 2-3 short standing rests. Balance: Static Sitting: Normal Dynamic Sitting: Normal Static Standing: Good Dynamic Standing: Good Special Tests: Mobility Limitations Standardized Measure [facility] AM-PAC 6 clicks Basic Mobility Inpatient Short Form: Raw Score: 23 CMS Score: 11% deficit Informed Consent/Education: Patient was instructed in purpose of PT consult and plan of care. Agreeable to proceed with established PT POC to achieve personal goals. Assessment: Patient presents with clinical signs and symptoms consistent with current/admitting diagnoses that have resulted to mobility limitations, gait instability, generalized weakness, and overall ADL decline as demonstrated by the following impairment level findings: 1. Impaired activity tolerance 2. Shortness of breath Impairments are contributing to the following functional limitations: 1. Increased completion time for mobility ADL performance 2. Increased risk for falls 3. Difficulty with managing steps alone safely Patient is assessed as a 62401 moderate complexity based on the following: History: 81-year-old male with past medical history as indicated above Examination: Demonstrable impairment in strength, balance, and mobility level with underlying impairments and functional limitations as exhibited above as well as deficit score of 11% utilizing the [facility] Mobility Inpatient Short Form Presentation: Stable Decision Makin moderate complexity Goals: Goals X1 week 1. Bed-Chair independent with independent 2. Chair-Bed independent with independent 3. Independent gait on level surface with use of no assistive device for at least 300 feet without report of pain nor dyspnea 4. Independent stair negotiation while holding onto B rails for at least 3 steps without report of pain nor dyspnea 5. Independent with home exercise program 6. Good static and dynamic standing balance/tolerance Plan of Care/Treatment Plan: 1-2x/day, 7 days/week x 1 week. Plan of care has been reviewed with the CAT TENDER providing the service under Physical Therapy direction. Initiate Physical Therapy intervention for pain management as needed, strengthening, bed mobility, transfers, gait, stairs, balance training, and use of assistive device. DISCHARGE RECOMMENDATIONS: [] Home with no services [] [X] Home with services. Patient will benefit from home health PT services in order to progress mobility level using least restrictive assistive ambulatory device, assess home safety, identify additional equipment needs, and establish a functional maintenance program that will increase ability of patient to remain at home. [] Home with outpatient PT [] [] SNF for continued rehabilitation [] [] Contact [facility] [] [] SNF versus LTC based on ability to participate and progress [] TREATMENT CODE/TIME: 98847 x 21 minutes beginning at 9:52 AM. Thank you for the opportunity to participate in the care of this patient. Sussy Bledsoe PT, DPT, CLT [facility] [place], [place]
[2021-10-26 11:30] LABS: Troponin I 2555 ng/L (<or=60)
--- NOTE | 2021-10-26 13:44 | W.PM.PROGNOT ---
Date of Service Date of service: 10/26/21 Time of Service: 13:44 Assessment and Plan Assessment and plan (1) Anemia: Status: Chronic Assessment and plan: continue prilosec 40 mg bid along w/ carafate 1 gm bid. refer to [facility] for outpatient upper and lower endoscopy. (2) Symptomatic severe aortic stenosis with normal ejection fraction: Status: Acute Assessment and plan: check repeat echo. last one was from 06/08/21 and demonstrated normal LV size and fxn LVEF 55-60%, moderate to severe aortic stenosis w/ peak gradient of 54 mm and mean of 35 mm, calculated aortic valve area of 1.07 cm2 (3) NSTEMI (non-ST elevated myocardial infarction): Status: Acute Assessment and plan: probably d/t demand ischemia from his anemia and underlying A.S. (4) Diabetes: Assessment and plan: hold his metformin and his alogliptin; will monitor glucose ac/hs and cover with insulin sensitive sliding scale. (5) Discharge planning issues: Status: Acute Assessment and plan: dc home later this afternoon w/ follow up w/ his PCP at the OR in [place], [place] and referral to [facility] (6) DVT prophylaxis: Status: Acute Assessment and plan: SCD and TEDS, anticoagulation contraindicated in setting of recent GIB Subjective Subjective Interval history since last seen: Jacob has had no melana nor any hematochezia since admission yesterday. In fact he has been constipated. I met w/ him and his son Seamus. I explained to Sulema that Jaocb has had recurrent iron deficiency anemia and has evidence of blood in his stools but that we do not know the source of blood loss and are presuming UGI source and giveing him meds for stomach protection. Furthermore, I explained to Seamus that our nurse anesthetists do not feel comfortable giving him sedation (due to his severe aortic stenosis) for upper and lower endoscopy to look for the source of his anemia and therefore, we will set him up with a referral to [facility] gastroenterology upon discharge. I feel that Jacob is stable enough to return home later today pending results of his echo. Jacob did have further rise in his troponin levles last night peaking at 3528. I explained this to Seamus that this is likely type II demand ischemia and not a plaque rupture infarct. I am checking his echo to be sure that there are no new RWMA. Exam Narrative Exam Narrative: Jacob is sitting up at the bedside conversing w/ his son, Seamus James is in no distress, he is hard of hearing but otherwise alert and oriented Lungs: clear anteriorly but some fine rales at the bases posteriorly on the right; no rhonchi or wheezing Heart: regular but w/ loud systolic murmur grade 3/6 over 2ND RICS, no thrill, softer holosytolic murmur over apex Abdomen: soft, nontender, normal bowel sounds, no bruits Legs: no edema Objective Last Vital Signs Temp 37.3 C 10/26/21 11:37 Pulse 80 10/26/21 11:37 Resp 17 10/26/21 11:37 BP 116/50 L 10/26/21 11:37 Pulse Ox 96 10/26/21 11:37 Laboratory Results - last 24 hr 10/25/21 10/25/21 10/25/21 15:05 15:05 15:05 WBC 12.51 H RBC 3.00 L Hgb 7.6 L Hct 24.8 L MCV 83 MCH 25.3 L MCHC 30.6 L RDW 14.6 H Plt Count 353 MPV 10.0 Immature Gran % 0.6 Neutrophils % 88.1 Lymphocytes % 5.8 Monocytes % 5.1 Eosinophils % 0.2 Basophils % 0.2 Nucleated RBC % 0.0 Absolute Neutrophils 11.02 H Absolute Lymphocytes 0.73 L Absolute Monocytes 0.64 Absolute Eosinophils 0.03 Absolute Basophils 0.03 Sodium 133 L Potassium 4.5 Chloride 100 Carbon Dioxide 20.3 L Anion Gap 12.7 H BUN 40 H Creatinine 2.0 H Estimated GFR/1.73 m2 32.39 Glucose 129 H Calcium 9.0 Magnesium 1.9 Iron Ferritin Total Bilirubin 0.3 AST 12 L ALT 15 L Alkaline Phosphatase 60 Troponin I 198 H* NT-Pro-B Natriuret Pep 866 H Total Protein 6.7 Albumin 3.4 Triglycerides Total Cholesterol LDL Cholesterol, Calc HDL Cholesterol Vitamin B12 Folate COVID-19 Source SARS-CoV-2 (PCR) Add-On Test Request Patient ABO/Rh O Positive Antibody Screen NEGATIVE Crossmatch See Detail 10/25/21 10/25/21 10/25/21 15:24 18:59 22:00 WBC RBC Hgb Hct MCV MCH MCHC RDW Plt Count MPV Immature Gran % Neutrophils % Lymphocytes % Monocytes % Eosinophils % Basophils % Nucleated RBC % Absolute Neutrophils Absolute Lymphocytes Absolute Monocytes Absolute Eosinophils Absolute Basophils Sodium Potassium Chloride Carbon Dioxide Anion Gap BUN Creatinine Estimated GFR/1.73 m2 Glucose Calcium Magnesium Iron Ferritin Total Bilirubin AST ALT Alkaline Phosphatase Troponin I 3518 H* Cancelled NT-Pro-B Natriuret Pep Total Protein Albumin Triglycerides Total Cholesterol LDL Cholesterol, Calc HDL Cholesterol Vitamin B12 Folate COVID-19 Source Nasal/Nares SARS-CoV-2 (PCR) Negative Add-On Test Request Patient ABO/Rh Antibody Screen Crossmatch 10/25/21 10/26/21 10/26/21 22:03 05:53 05:53 WBC 12.16 H RBC 3.60 L Hgb 7.9 L 9.3 L Hct 25.5 L 29.8 L MCV 83 MCH 25.8 L MCHC 31.2 L RDW 14.6 H Plt Count 332 MPV 10.1 Immature Gran % 0.3 Neutrophils % 80.4 Lymphocytes % 10.2 Monocytes % 8.3 Eosinophils % 0.6 Basophils % 0.2 Nucleated RBC % 0.0 Absolute Neutrophils 9.78 H Absolute Lymphocytes 1.24 Absolute Monocytes 1.01 H Absolute Eosinophils 0.07 Absolute Basophils 0.02 Sodium 135 L Potassium 4.9 Chloride 104 Carbon Dioxide 23.8 Anion Gap 7.2 BUN 36 H Creatinine 1.6 H Estimated GFR/1.73 m2 41.90 Glucose 114 H Calcium 9.0 Magnesium Iron Ferritin Total Bilirubin AST ALT Alkaline Phosphatase Troponin I 3528 H* NT-Pro-B Natriuret Pep Total Protein Albumin Triglycerides Total Cholesterol LDL Cholesterol, Calc HDL Cholesterol Vitamin B12 Folate COVID-19 Source SARS-CoV-2 (PCR) Add-On Test Request Patient ABO/Rh Antibody Screen Crossmatch 10/26/21 10/26/21 10/26/21 05:53 05:53 05:53 WBC RBC Hgb Hct MCV MCH MCHC RDW Plt Count MPV Immature Gran % Neutrophils % Lymphocytes % Monocytes % Eosinophils % Basophils % Nucleated RBC % Absolute Neutrophils Absolute Lymphocytes Absolute Monocytes Absolute Eosinophils Absolute Basophils Sodium Potassium Chloride Carbon Dioxide Anion Gap BUN Creatinine Estimated GFR/1.73 m2 Glucose Calcium Magnesium Iron 113 Ferritin 14 L Total Bilirubin AST ALT Alkaline Phosphatase Troponin I NT-Pro-B Natriuret Pep Total Protein Albumin Triglycerides 72 Total Cholesterol 95 LDL Cholesterol, Calc 36 HDL Cholesterol 45 Vitamin B12 1536 H Folate > 20.0 H COVID-19 Source SARS-CoV-2 (PCR) Add-On Test Request DONE Patient ABO/Rh Antibody Screen Crossmatch 10/26/21 11:00 WBC RBC Hgb Hct MCV MCH MCHC RDW Plt Count MPV Immature Gran % Neutrophils % Lymphocytes % Monocytes % Eosinophils % Basophils % Nucleated RBC % Absolute Neutrophils Absolute Lymphocytes Absolute Monocytes Absolute Eosinophils Absolute Basophils Sodium Potassium Chloride Carbon Dioxide Anion Gap BUN Creatinine Estimated GFR/1.73 m2 Glucose Calcium Magnesium Iron Ferritin Total Bilirubin AST ALT Alkaline Phosphatase Troponin I 2555 H* NT-Pro-B Natriuret Pep Total Protein Albumin Triglycerides Total Cholesterol LDL Cholesterol, Calc HDL Cholesterol Vitamin B12 Folate COVID-19 Source SARS-CoV-2 (PCR) Add-On Test Request Patient ABO/Rh Antibody Screen Crossmatch Reviewed Pertinent PMH: Yes
--- NOTE | 2021-10-26 14:00 | RT.EKG_ITS ---
APPROVED REPORT Exam: Resting ECG Reason for Exam: elevated troponin I levels Patient Location: I HR:76 bpm ECG Measurements Heart Rate 76 AXIS KS 189 P -13 QRSd 91 QRS -23 QT 418 T 31 QTc 471 Conclusion Sinus rhythm...normal P axis, V-rate 50- 99 Possible Inferior infarct, old...Q >35mS, II III aVF
--- NOTE | 2021-10-26 14:39 | CHAPLAIN ---
Jacob was watching a [place]-speaking tv station when I visited. He said he was here a few weeks ago and he's hoping this time the medical staff will figure out what's causing his blood loss. He was not interested in further conversation, but I let him know that automotive electrician helper is available to him at any time.
[2021-10-26] MEDS: IRON SUCROSE COMPLEX 300 MG in Normal Saline 250 ML 167 MG IVPB (14:41)
--- NOTE | 2021-10-26 15:50 | CMDISCH_ITS ---
- If Service Date Differs Date of service: 10/26/21 Time of Service: 15:50 LACE Index Scoring Tool - Questions: Length of Stay (in days): 1 Care Management Discharge Reason for Hospitalization: Chronic blood loss Discharge Plan: Jacob will discharge home via private vehicle with Son Seamus. Jacob will resume [facility] RN, add on PT/OT/SOLE SKIVER. [place] will call [place] PCP at the [place] to schedule a follow up appointment. In addition, a referral was sent to [facility] (office will call directly to schedule). CM reviewed community support options and sent referral's to [place] [facility] and [facility] at patient's request. Jacob has a landline phone, and his son is going to look into [employer] and installing handrails for his front steps. Patient Portal access is also recommended by CM to improve communication. Per Jacob's request, he would like his son Seamus to be the Proxy for this service, due to his limitations accessing the portal. CM notified Leslie at the [place] regarding Jacob's discharge and f ollow up recommendations. Per Leslie, the [place] will offer Jacob Life Guardian([place] version of life line) and will call Jacob about getting set up for their [employer] portal. Patient/Family Education Needs: Review discharge instructions, limitations, medications and plan to follow up with community providers. ask me three. Services Needed at Discharge: Home Delivered Meals (Referral sent to [place] [facility] and [facility]), Home Health Care Services (Resume [facility] RN, Add PT/OT/SOLE SKIVER. CM notified Joe )
--- NOTE | 2021-10-26 15:50 | PDOC.CMDIS ---
- If Service Date Differs Date of service: 10/26/21 Time of Service: 15:50 LACE Index Scoring Tool - Questions: Length of Stay (in days): 1 Care Management Discharge Reason for Hospitalization: Chronic blood loss Discharge Plan: Jacob will discharge home via private vehicle with Son Seamus. Jacob will resume [facility] RN, add on PT/OT/GENERATION ENGINEER. Jacob will call his PCP at the [place] to schedule a follow up appointment. In addition, a referral was sent to [facility] (office will call directly to schedule). CM reviewed community support options and sent referral's to [place] [facility] and [facility] at patient's request. Jacob has a landline phone, and his son is going to look into [employer] and installing handrails for his front steps. Patient Portal access is also recommended by CM to improve communication. Per Jacob's request, he would like his son Seamus to be the Proxy for this service, due to his limitations accessing the portal. CM notified Leslie at the [place] regarding Jacob's discharge and follow up recommendations. [place], the [place] [facility] version of life [place] and will call Jacob about getting set up for their [employer] portal. Patient/Family Education Needs: Review discharge instructions, limitations, medications and plan to follow up with community providers. ask me three. Services Needed at Discharge: Home Delivered Meals (Referral sent to [place] [facility] and [facility]), Home Health Care Services (Resume [facility] RN, Add PT/OT/GENERATION ENGINEER. CM notified Joe )
--- NOTE | 2021-10-26 17:26 | W.PM.DS.N ---
Date of service: 10/26/21 Time of Service: 17:26 DS: Diagnosis Discharge Diagnosis (1) Anemia: Status: Chronic Asessment and Plan: This 81-year-old male presented via EMS from his home in [facility] after recently being hospitalized at [facility] from 10/08/2021 through 10/11/2021 was treated for acute on chronic diastolic heart failure and worsening chronic anemia. He has known severe aortic stenosis as well as type 2 diabetes mellitus and heart failure with preserved ejection fraction related to his aortic stenosis. During that hospitalization hemoglobin is down to 7.1 g she was given 1 unit packed red blood cells and his hemoglobin came up to 8.4 g. He was given IV diuretics then switched to oral diuretics. He had a bump in his troponin I level which peaked at 947. This was felt to be secondary to demand ischemia. Echocardiogram was not performed at that time. His last echocardiogram at [facility] was from 06/08/2021 and that time showed normal LV systolic function and normal LV wall size and thickness with an ejection fraction of 55 to 60% but no wall motion abnormalities. RV size and function was normal. However he did have moderate to severe aortic stenosis with a calculated aortic valve area of 1.07 cm?. He was discharged home with hemoglobin 8.4 g and put on iron supplementation and oral Lasix. Since that time he is followed up with his primary care provider at the [facility] in [facility]. He reportedly has been referred to cardiology. He presented this admission to [facility] on 10/25/2021 with complaints of dizziness lightheadedness and watery diarrhea. Stool tested Hemoccult positive in the emergency department. He was found to be hypotensive with a blood pressure 88/32 but after fluid boluses his systolic pressure got up in the high 90s to low 100s. He was found to be anemic again with a hemoglobin of 7.6 g. He was typed and crossmatched and transfused 2 units of packed red cells. Hemoglobin came up to 9.3 g. He has had no further bleeding while hospitalized. He denies any chest pain or pressure or dyspnea and denies any abdominal complaints. Similar to his last admission he had a rise in his troponin levels. His initial troponin I level was 198 with a proBNP of 866 and normal transaminases. BUN/creatinine were elevated at 40 and 2.0 his troponin levels peaked at 3528 at the time of discharge it dropped down to 2500. BUN and creatinine improved overnight to 36 and 1.6. Hemoglobin after transfusion came up to 9.3 g. Patient was tolerating his diet and was desiring to return home. Patient's Prilosec was increased to 40 mg twice a day and Carafate was added 1 g twice a day. Request for outpatient GI follow-up with [facility] was requested. Patient's care was discussed with his son Seamus Rush who came up from [place] to be with his father. I explained to Seamus that because of that his father's aortic stenosis and elevation in his troponin levels are nurse stone layout marker would not be willing to sedate him for upper and lower endoscopy and therefore the procedures will have to be done at a tertiary care center such as [facility]. I did recommend that the patient stay off of aspirin and any NSAIDs until the source of his GI bleeding is determined and controlled. I also explained to Seamus that as his father had a bump in his troponin levels which we feel is due to demand ischemia but his father may need to stress test. At that point Seamus told me that he thinks his father had a stress test and the patient states that sometime in the last month they attempted to do a treadmill stress test but he could not tolerate it and they converted to a chemical stress test. I told them both that I would defer to [facility] to follow-up on this. In the interim we did get an echocardiogram on the day of discharge which demonstrated him to have preserved LV function with an EF of 55% with normal LV thickness and size although the posterior wall was felt to be mildly hypocontractile. RV and RA were not well visualized. Again his aortic valve shows moderate to severe stenosis with a peak gradient of 60 mm and a mean of 38 mm and a calculated aortic valve area of 1.02 cm?. Patient has moderate mitral regurgitation. He has a mildly dilated aorta of 3.81 cm. All these findings should be followed up by his primary care provider and referred to cardiology services at [facility] who can coordinate with anesthesia and gastroenterology services regarding performance of an EGD and colonoscopy. Repeat CBC will be done in 3 days with results forwarded to his PCP. adult education manager set the patient up with [facility] and [facility] have been consulted to provide nursing and physical therapy and Occupational Therapy as well as [employer]LD [employer]NER. Patient is discharged home in improved condition. I talked with the patient and the patient's son regarding signs and symptoms to watch for in the event that he has further worsening of his anemia or acute GI bleeding. (2) Symptomatic severe aortic stenosis with normal ejection fraction: Status: Chronic Asessment and Plan: Follow-up with cardiology as an outpatient. (3) NSTEMI (non-ST elevated myocardial infarction): Status: Acute Asessment and Plan: No acute ischemic ST or T wave changes on his EKG. Patient had no symptoms of chest pain or chest pressure. Echocardiogram shows preserved left ventricular function. Patient should follow-up with his PCP regarding cardiac stress testing. Patient should follow-up with cardiology regarding his severe aortic stenosis and mild regurgitation. (4) Diabetes: (5) Discharge planning issues: Status: Resolved Asessment and Plan: Patient is discharged home to the care of his son in [facility]. His son Seamus will stay here overnight until visiting nurse can see the patient tomorrow. [facility] services including visiting nurse, physical therapy, Occupational Therapy, and WORLD RENOWNED CHE[employer] OWNER will be consulted to evaluate and treat the patient. Discharge Plan Disposition Patient Disposition: HOME W/HOME HEALTH SERVICE Condition: Improving Discharge Details Reason For Visit: Chronic Blood Loss Anemia Admit Date/Time: 10/25/21 17:13 Admit Provider: Seth Velez Attending Provider: Seth Velez Primary Care Provider: SANDY ORTEGA Home Meds and New Rx's Prescriptions: New omeprazole 20 mg Capsule,Delayed Release(Dr/Ec) 40 mg PO BID@ Qty: 60 0RF sucralfate 1 gram Tablet 1 g PO BID Qty: 60 0RF Continued terazosin 5 MG capsule 5 mg PO HS metformin 500 MG tablet 500 mg PO BID simvastatin 40 MG tablet 20 mg PO HS levothyroxine 100 MCG tablet 100 mcg PO DAILY oxybutynin chloride 5 MG tablet 10 mg PO DAILY alogliptin 12.5 mg tablet 12.5 mg PO DAILY cholecalciferol (vitamin D3) 50 mcg (2,000 unit) capsule 50 mcg PO DAILY ferrous gluconate 324 mg (38 mg iron) tablet 324 mg PO DAILY hydroxychloroquine 200 mg tablet 200 mg PO BID multivitamin Tablet 1 tab PO DAILY omega [id number]-fish oil [Fish Oil] 60-90-500 mg capsule 1 cap PO DAILY folic acid 1 mg Tablet 1 mg PO DAILY fiber Capsule 0 cap PO DAILY PRN PRN Rx Instructions: PER PT, TAKES FIBER PRN carboxymethylcellulose sodium 0.5 % Drops 1 drp ophthalmic (eye) QID PRN PRN Rx Instructions: 1 DROP BOTH EYES QID PRN FOR DRY EYES docusate sodium [Colace] 100 mg Capsule 100 mg PO BID Qty: 60 0RF magnesium oxide 400 mg magnesium capsule 400 mg PO DAILY Qty: 7 0RF furosemide 20 mg tablet 20 mg PO DAILY Qty: 10 0RF Rx Instructions: Take 20 mg of furosemide daily. Take an additional 20 mg if you have gained 3 lbs or greater in 3 days. docusate sodium [Colace] 100 mg capsule 100 mg PO BID Qty: 14 0RF furosemide 20 mg tablet See Rx Instructions .ROUTE .COMPLEX Qty: 45 0RF Rx Instructions: Take one tablet daily. Take an extra tablet if you've gained 3 lbs or greater in 3 days. Discontinued omeprazole 20 MG capsule,delayed release(DR/EC) 20 mg PO DAILY aspirin [Adult Aspirin Regimen] 81 mg tablet,delayed release (DR/EC) 81 mg PO DAILY Discharge Instructions Instructions: Acute Posthemorrhagic Anemia (DC) Additional Instructions: Your stomach pill, omeprazole dose has been increased to 40 mg twice a day and a new prescription has been written. In addition to this a new medicine was added to coat and protect your stomach and esophagus, this is sucralfate and a prescription for this has been given to you. Please stop your aspirin until the source of your anemia has been confirmed and treated. You should plan to follow up w/ your primary care provider at the [facility] in [facility] in the next week. You should hear from [facility] gastroenterology department about setting up outpatient clinic visit to discuss your anemia and to arrange to have outpatient upper and lower endoscopy to look for the source of your anemia. Avoid the use of any NSAID medications such as ibuprofen, Aleve, naprosyn, Advil. You may use Tylenol or acetaminophen as needed for muscle or joint pains. Follow the directions on the bottle. If you have acute bleeding such as dark black tarry stools or bright red rectal bleeding or you begin to feel dizzy or lightheaded or more short of breath or fatigued, please see your doctor or go to the ER for immediate attention. Stand Alone Forms: Nursing Discharge Form Referrals: [facility] Latricia [Other] (Office will call you with appointment. Referral has been sent.) SANDY ORTEGA [Primary Care Provider] - (Please call to make a follow up appointment. ) Activity:: Activity as Tolerated Equipment/Supplies:: No Equipment Needed Diet:: Normal Diet Discharge Orders Discharge Orders: Discharge Order (Routine); Ordered 10/26/21 Ordered By: Seth Adams Ambulatory Orders: Complete Blood Count w/Diff (Routine) Timeframe: 3 Days Facility: [facility] - Location: Laboratory Outpatient - [facility] Ordered By: Seth Velez DS: Summary Time Spent with Patient providing and/or coordinating discharge services: Greater than 30 minutes Specific discharge activities: Interview/exam of patient; review of discharge instructions, completion of prescriptions/discharge instructions; discussion w/ nursing and CM; documentation of hospital visit Status at Discharge Functional status at discharge: uses cane/walker Overall status at discharge: patient is progressing back to baseline Mental Status: mental status grossly normal Speech and Movement: speech and movement normal Mood: congruent mood Affect: normal affect Exam Narrative Exam Narrative: Jacob is sitting up at the bedside conversing w/ his son, Seamus James is in no distress, he is hard of hearing but otherwise alert and oriented Lungs: clear anteriorly but some fine rales at the bases posteriorly on the right; no rhonchi or wheezing Heart: regular but w/ loud systolic murmur grade 3/6 over 2ND RICS, no thrill, softer holosytolic murmur over apex Abdomen: soft, nontender, normal bowel sounds, no bruits Legs: no edema Psych Mental Status: mental status grossly normal Speech and Movement: speech and movement normal Mood: congruent mood Affect: normal affect DS: Data Vitals/I&O Vitals and I&O: Vital Signs Temperature 37.7 C H 10/26/21 15:04 Temperature Source Tympanic 10/26/21 15:04 Pulse 75 10/26/21 15:04 Pulse Rhythm Regular 10/26/21 16:00 Pulse 77 10/25/21 16:50 Respiratory Rate 18 10/26/21 15:04 Respiratory Effort Non-Labored 10/26/21 16:00 Respiratory Depth Normal 10/26/21 16:00 Respiratory Pattern Normal 10/26/21 16:00 Blood Pressure 112/53 L 10/26/21 15:04 Blood Pressure Mean 59 10/25/21 16:46 Blood Pressure Position Sitting 10/25/21 14:47 Pulse Oximetry 97 10/26/21 15:04 Oxygen Delivery Method Room Air 10/26/21 15:04 Oxygen Flow Rate 0 10/26/21 15:04 Pain Level 0 10/26/21 15:04 Intake & Output 10/25/21 10/26/21 10/26/21 23:59 11:59 23:59 Intake Total 820 / 820 890 / 890 Output Total 200 / 200 600 / 1600 1000 / 1600 Balance 620 / 620 290 / -710 -1000 / -710 Weight 81.647 kg 77.3 kg Intake: IV 10 10 Oral 360 / 360 500 / 500 Blood Product 400 / 400 350 / 350 Rbc Leuko Reduced Unit 350 / 350 [id number] Rbc Leuko Reduced Unit 400 / 400 [id number] Other 60 / 60 30 / 30 Rbc Leuko Reduced Unit 30 / 30 30 / 30 [id number] Rbc Leuko Reduced Unit 30 / 30 [id number] Output: Urine 200 / 200 600 / 1600 1000 / 1600 Other: Urine Color Yellow Yellow Straw Urine Appearance Clear Clear Clear Urine Odor None None Normal Comment unable to measure Voiding Methods Toilet Toilet Toilet Data Completed and Pending Labs on day of discharge: Labs from last 24 hours 10/26/21 10/26/21 10/26/21 11:00 05:53 05:53 WBC RBC Hgb Hct MCV MCH MCHC RDW Plt Count MPV Immature Gran % Neutrophils % Lymphocytes % Monocytes % Eosinophils % Basophils % Nucleated RBC % Absolute Neutrophils Absolute Lymphocytes Absolute Monocytes Absolute Eosinophils Absolute Basophils Sodium Potassium Chloride Carbon Dioxide Anion Gap BUN Creatinine Estimated GFR/1.73 m2 Glucose Calcium Iron 113 Ferritin 14 L Troponin I 2555 H* Triglycerides 72 Total Cholesterol 95 LDL Cholesterol, Calc 36 HDL Cholesterol 45 Vitamin B12 1536 H Folate > 20.0 H Add-On Test Request Patient ABO/Rh Antibody Screen Crossmatch 10/26/21 10/26/21 10/26/21 05:53 05:53 05:53 WBC 12.16 H RBC 3.60 L Hgb 9.3 L Hct 29.8 L MCV 83 MCH 25.8 L MCHC 31.2 L RDW 14.6 H Plt Count 332 MPV 10.1 Immature Gran % 0.3 Neutrophils % 80.4 Lymphocytes % 10.2 Monocytes % 8.3 Eosinophils % 0.6 Basophils % 0.2 Nucleated RBC % 0.0 Absolute Neutrophils 9.78 H Absolute Lymphocytes 1.24 Absolute Monocytes 1.01 H Absolute Eosinophils 0.07 Absolute Basophils 0.02 Sodium 135 L Potassium 4.9 Chloride 104 Carbon Dioxide 23.8 Anion Gap 7.2 BUN 36 H Creatinine 1.6 H Estimated GFR/1.73 m2 41.90 Glucose 114 H Calcium 9.0 Iron Ferritin Troponin I 3528 H* Triglycerides Total Cholesterol LDL Cholesterol, Calc HDL Cholesterol Vitamin B12 Folate Add-On Test Request DONE Patient ABO/Rh Antibody Screen Crossmatch 10/25/21 10/25/21 10/25/21 22:03 22:00 18:59 WBC RBC Hgb 7.9 L Hct 25.5 L MCV MCH MCHC RDW Plt Count MPV Immature Gran % Neutrophils % Lymphocytes % Monocytes % Eosinophils % Basophils % Nucleated RBC % Absolute Neutrophils Absolute Lymphocytes Absolute Monocytes Absolute Eosinophils Absolute Basophils Sodium Potassium Chloride Carbon Dioxide Anion Gap BUN Creatinine Estimated GFR/1.73 m2 Glucose Calcium Iron Ferritin Troponin I Cancelled 3518 H* Triglycerides Total Cholesterol LDL Cholesterol, Calc HDL Cholesterol Vitamin B12 Folate Add-On Test Request Patient ABO/Rh Antibody Screen Crossmatch 10/25/21 15:05 WBC RBC Hgb Hct MCV MCH MCHC RDW Plt Count MPV Immature Gran % Neutrophils % Lymphocytes % Monocytes % Eosinophils % Basophils % Nucleated RBC % Absolute Neutrophils Absolute Lymphocytes Absolute Monocytes Absolute Eosinophils Absolute Basophils Sodium Potassium Chloride Carbon Dioxide Anion Gap BUN Creatinine Estimated GFR/1.73 m2 Glucose Calcium Iron Ferritin Troponin I Triglycerides Total Cholesterol LDL Cholesterol, Calc HDL Cholesterol Vitamin B12 Folate Add-On Test Request Patient ABO/Rh O Positive Antibody Screen NEGATIVE Crossmatch See Detail PFSH All Active Problems (Updated 10/26/21 @ 18:03 by Seth Velez MD) Chronic blood loss anemia (Acute) Symptomatic severe aortic stenosis with normal ejection fraction (Chronic) Acute on chronic diastolic heart failure (Acute) NSTEMI (non-ST elevated myocardial infarction) (Acute) CHF (congestive heart failure) (Chronic) Abnormal prostate by palpation (Acute) Anemia (Chronic) Shortness of breath (Acute) Positive FIT (fecal immunochemical test) (Acute) Constipation (Acute) Tubular adenoma of colon (Acute) Medical History BPH (benign prostatic hyperplasia) Diabetes Erectile dysfunction GERD (gastroesophageal reflux disease) Hyperlipidemia Hypertension Hypothyroid Nonrheumatic aortic (valve) stenosis Osteoarthritis Surgical History History of colonoscopy (~01/2012) 06/2021 Hx of neck surgery gland excised Family History Mother Breast cancer Father Stroke Social History Smoking/Tobacco Use Status: Former Tobacco Use Quit Date: 03/13/89 Smoking risk assessment performed?: Yes Alcohol Intake: current Alcohol Intake frequency: holidays/special occasions only Drug use: Never Substance use type: does not use Do you feel safe at home: Yes Do you feel safe in your relationship?: Yes
--- NOTE | 2021-10-26 17:27 | PDOC.HHF2F ---
Home Health Certification Home Health Certification: 1. Encounter Date and Reason I certify that Jacob Rush Jr was seen by Seth Velez on 10/26/21 and that I had a [id number] encounter with this patient that meets the physician face to face encounter requirements. 2. Clinical Findings Supporting Skilled Need and Homebound Status I certify that home health services are medically necessary, include either intermittent chcf and/or physical/speech therapy, and that this patient is homebound in that absences from the home require considerable and taxing effort and are infrequent or of short duration, or are attributable to the need to receive medical care. [X] (a) Attached documentation from encounter provides clinical findings supporting skilled need and homebound status (including what assistance patient requires to leave the home). The encounter with the patient was in whole, or in part, for the following medical condition, which is the primary reason for home health care: Chronic Blood Loss Anemia Half-Way: Evaluate and treat for chronic blood loss anemia, severe aortic stenosis, heart failure with preserved ejection fraction. Coordinate with PCP and specialists regarding any new medication changes or any amatory lab orders. Obtain a repeat CBC in 3 days from discharge further labs per his PCP at the [facility] in [facility]. BUILDING PERFORMANCE SPECIALIST to consult on the patient to assist with coordination of follow-up medical services and keep family informed. Physical Therapy: PT and OT to evaluate and treat for generalized weakness and deconditioning and ambulatory instability secondary to chronic blood loss anemia, CHF and aortic stenosis. Speech Therapy: Homebound: Patient's recent hospitalization for severe chronic blood loss anemia has left the patient deconditioned and weak and travel outside his home to seek medical services puts his health in jeopardy. 3. Certification and Authentication I certify that I composed the above information based on my clinical judgement relating to this patient's medical condition and, if applicable, clinical findings communicated to me by the NPP or inpatient physician who performed the Home Health Referral. All further orders will be obtained through SANDY ORTEGA (Community Based Physician - PCP)
--- NOTE | 2021-10-27 10:05 | PT.INDS ---
Date of service: 10/27/21 PT Notes Visit Reasons: Chronic Blood Loss Anemia Physical Therapy Inpatient Discharge Summary Date: 10/27/2021 Dates of service: 10/26/2021 only This is a clinical summary of care provided for the duration of dates listed above. No charge was made in the completion of this documentation. Referring Doctor: Seth Glover MD PT Orders: PT CONSULT: Fall safety assessment Precautions: Fall. Standard. Activity as tolerated. Patient Profile/Admitting Diagnosis:? Leonela is a 81-year-old male who presented to the ED on 10/25/2021 due to shortness of breath.? Patient is diagnosed with anemia, symptomatic severe aortic stenosis with normal ejection fraction, NSTEMI, and diabetes mellitus. PMHX: All Active Problems?(Updated 10/25/21 @ 19:01 by Seth Velez MD) Symptomatic severe aortic stenosis with normal ejection fraction (Acute) Acute on chronic diastolic heart failure (Acute) NSTEMI (non-ST elevated myocardial infarction) (Acute) CHF (congestive heart failure) (Chronic) Abnormal prostate by palpation (Acute) Anemia (Chronic) Shortness of breath (Acute) Positive FIT (fecal immunochemical test) (Acute) Constipation (Acute) Tubular adenoma of colon (Acute) Medical History? BPH (benign prostatic hyperplasia) Diabetes Erectile dysfunction GERD (gastroesophageal reflux disease) Hyperlipidemia Hypertension Hypothyroid Nonrheumatic aortic (valve) stenosis Osteoarthritis Surgical History? History of colonoscopy (~01/2012) 06/2021 Hx of neck surgery gland excised Social History/Home Situation: Lives alone in a mobile home with 3 steps to enter with rails on both sides.? Independent with all aspects of ADLs without a walker nor a single-point cane use.? Still drives.? Does his own grocery shopping.? Has somebody who comes in twice a week to mow his lawn in the summer and plow the same in the wintertime.? Was in the [employer] for 4 years.? Equipment Owned/DME: FWW, SPC Subjective: NT. See most recent REPLANTING MACHINE CREWMAN notes. Objective: General Observation:? NT. See most recent REPLANTING MACHINE CREWMAN notes. Mental Status: NT. See most recent REPLANTING MACHINE CREWMAN notes. Pain: NT. See most recent REPLANTING MACHINE CREWMAN notes. Vital Signs: NT. See most recent REPLANTING MACHINE CREWMAN notes. ROM: Right Upper Extremity: ? Shoulder Flexion WFL. Shoulder abduction WFL. Elbow flexion WFL. Wrist flexion WFL. Functional opening and closing of hand WFL. Left Upper Extremity:? Shoulder Flexion WFL. Shoulder abduction WFL. Elbow flexion WFL. Wrist flexion WFL. Functional opening and closing of hand WFL. Right Lower Extremity: Hip flexion WFL. Hip abduction WFL. Knee flexion WFL. Ankle dorsiflexion WFL. Ankle plantarflexion WFL. Left Lower Extremity: Hip flexion WFL. Hip abduction WFL. Knee flexion WFL. Ankle dorsiflexion WFL. Ankle plantarflexion WFL. Strength: Right Upper Extremity: Shoulder flexors 4-/5. Shoulder abductors 4-/5. Elbow flexors 4-/5. Elbow extensors 4-/5. Filler And Trimmer strong. Left Upper Extremity: Shoulder flexors 4-/5. Shoulder abductors 4-/5. Elbow flexors 4-/5. Elbow extensors 4-/5. Filler And Trimmer strong. Right Lower Extremity: Hip flexors 4/5. Hip abductors 4/5. Knee flexors 4/5. Knee extensors 4/5. Ankle dorsiflexors 4/5. Ankle plantarflexors 4/5. Left Lower Extremity: Hip flexors 4/5. Hip abductors 4/5. Knee flexors 4/5. Knee extensors 4/5. Ankle dorsiflexors 4/5. Ankle plantarflexors 4/5. Bed Mobility/Transfers: Rolling independent Supine to sit independent Sit to supine independent Sit to stand independent Stand to sit independent Bed to reclining chair supervision Reclining chair to bed supervision Gait: Instructed patient with level surface ambulation of 150 feet requiring supervision assist,? no device used. Sarai decreased.? Minimal shortness of breath requiring 2-3 short standing rests. Balance: Static Sitting: Normal Dynamic Sitting: Normal Static Standing: Good Dynamic Standing: Good Assessment: Patient presents with clinical signs and symptoms consistent with current/admitting diagnoses that have resulted to mobility limitations, gait instability, generalized weakness, and overall ADL decline as demonstrated by the following impairment level findings: 1.? Impaired activity tolerance 2.? Shortness of breath Impairments are contributing to the following functional limitations: 1.? Increased completion time for mobility ADL performance 2.? Increased risk for falls 3.? Difficulty with managing steps alone safely Goals: Goals X1 week 1. Bed-Chair independent with independent NOT MET 2. Chair-Bed independent with independent NOT MET 3. Independent gait on level surface with use of no assistive device for at least 300 feet without report of pain nor dyspnea NOT MET 4. Independent stair negotiation while holding onto B rails for at least 3 steps without report of pain nor dyspnea NOT MET 5. Independent with home exercise program NOT MET 6. Good static and dynamic standing balance/tolerance NOT MET DISCHARGE RECOMMENDATIONS: [] ? Home with no services [] [X] ? Home with services.? Patient will benefit from home health PT services in order to progress mobility level using least restrictive assistive ambulatory device, assess home safety, identify additional equipment needs, and establish a functional maintenance program that will increase ability of patient to remain at home. [] ? Home with outpatient PT [] [] ? SNF for continued rehabilitation [] [] ? Snf Care [] [] ? SNF versus LTC based on ability to participate and progress [] TREATMENT CODE/TIME: MA Thank you for the opportunity to participate in the care of this patient. Sussy Bledsoe PT, DPT, CLT [facility] [place], [place]
== END 2021-10-26 18:32 | disposition home health service (06) ==
LOC: ER 18:13 → MS 18:18
PROVIDERS: Admitting Provider Internal Medicine; Emergency Provider Emergency Medicine; PCP Internal Medicine; Visit Provider Internal Medicine
DX: I21.A1 Myocardial infarction type 2 (principal); I21.4 Non-ST elevation (NSTEMI) myocardial infarction; I13.0 Hypertensive heart and chronic kidney disease with heart failure and stage 1 through stage 4 chronic kidney disease, or unspecified chronic kidney disease; I08.0 Rheumatic disorders of both mitral and aortic valves; I50.32 Chronic diastolic (congestive) heart failure; D50.0 Iron deficiency anemia secondary to blood loss (chronic); E03.9 Hypothyroidism, unspecified; E78.5 Hyperlipidemia, unspecified; K21.9 Gastro-esophageal reflux disease without esophagitis; N40.0 Benign prostatic hyperplasia without lower urinary tract symptoms; R06.02 Shortness of breath; Z79.84 Long term (current) use of oral hypoglycemic drugs; Z79.899 Other long term (current) drug therapy; R19.5 Other fecal abnormalities; K59.00 Constipation, unspecified; Z20.822 Contact with and (suspected) exposure to COVID-19; E11.22 Type 2 diabetes mellitus with diabetic chronic kidney disease; I95.9 Hypotension, unspecified; N18.9 Chronic kidney disease, unspecified; I25.2 Old myocardial infarction; I77.810 Thoracic aortic ectasia; R53.1 Weakness
CPT/HCPCS: 36415; 80048; 80053; 80061; 86850; 86900; 86901; 86920; 87635; 93005; 93306; 97162; 99284; 99285; 71045; 82607; 82728; 82746; 83540; 83735; 83880; 84484; 85014; 85018; 85025; 93010; 99217; 99220; G0378; J1756; P9016

== ENCOUNTER 2021-10-29 11:36 | Outpatient (CLI) | payer OTHER, SELFPAY ==
[2021-10-29 11:48] LABS: Abs Immature Grans 0.03 10^3/uL (0.0-0.06); Absolute Basophil Count 0.05 10^3/uL (0.0-0.2); Absolute Lymphocyte Count 1.37 10^3/uL (1.2-3.4); Absolute Monocyte Count 0.84 10^3/uL (0.1-0.8); Absolute Neutrophil Count 6.47 10^3/uL (1.2-6.7); Basophils % 0.6; Eosinophils % 1.1; HCT 31.5 % (40.0-50.0); HGB 9.6 g/dL (13.5-17.5); Immature Grans % 0.3; Lymphocytes % 15.5; MCHC 30.5 % (32.0-36.0); MCV 85 fL (80-95); MPV 9.6 fL (8.0-11.0); Monocytes % 9.5; Platelet Count 324 10^3/uL (130-400); RBC 3.69 10^6/uL (4.36-5.78); RDW 14.7 % (11.8-14.1); RDW-SD 45.4 fL; WBC 8.86 10^3/uL (4.4-10.8)
== END 2021-10-29 11:37 | disposition home or self-care (01) ==
LOC: LBO 11:36
PROVIDERS: PCP Internal Medicine; Visit Provider Internal Medicine
DX: D50.0 Iron deficiency anemia secondary to blood loss (chronic) (principal)
CPT/HCPCS: 36415; 85025

== ENCOUNTER 2021-11-17 14:40 | Outpatient (REF) | payer MEDICARE, OTHER, SELFPAY ==
[2021-11-16 21:16] LABS: Abs Immature Grans 0.03 10^3/uL (0.0-0.06); Absolute Basophil Count 0.04 10^3/uL (0.0-0.2); Absolute Eosinophil Count 0.15 10^3/uL (0.0-0.7); Absolute Lymphocyte Count 2.56 10^3/uL (1.2-3.4); Absolute Monocyte Count 0.73 10^3/uL (0.1-0.8); Absolute Neutrophil Count 6.73 10^3/uL (1.2-6.7); Basophils % 0.4; Eosinophils % 1.5; HCT 36.6 % (40.0-50.0); HGB 11.5 g/dL (13.5-17.5); Immature Grans % 0.3; MCH 27.1 pg (27.0-33.0); MCHC 31.4 % (32.0-36.0); MCV 86 fL (80-95); MPV 11.8 fL (8.0-11.0); Monocytes % 7.1; Neutrophils % 65.7; Platelet Count 264 10^3/uL (130-400); RBC 4.24 10^6/uL (4.36-5.78); RDW 17.7 % (11.8-14.1); RDW-SD 55.3 fL; WBC 10.24 10^3/uL (4.4-10.8)
[2021-11-16 21:48] LABS: ALT 17 U/L (16-63); AST 13 U/L (15-37); Alkaline Phosphatase 69 U/L (46-116); Anion Gap 10.4 mmol/L (3-11); BUN 55 mg/dL (7-18); Bilirubin, Direct 0.1 mg/dL (0.0-0.2); Bilirubin, Total 0.5 mg/dL (0.2-1.0); CO2 26.6 mmol/L (21.0-32.0); CREATININE 2.9 mg/dL (0.70-1.30); Calcium 9.8 mg/dL (8.5-10.1); Chloride 101 mmol/L (98-107); Estimated GFR 21.34 (mL/min/1.73m2); Ferritin 108 ng/mL (26-388); Glucose 140 mg/dL (74-106); Potassium 4.1 mmol/L (3.5-5.1); Sodium 138 mmol/L (136-145); Total Protein 7.1 g/dL (6.4-8.2)
[2021-11-16 22:06] LABS: NT-proBNP 851 pg/mL (<300)
[2021-11-16 22:15] LABS: Hemoglobin A1C 5.7 % (<5.7)
[2021-11-16 22:16] LABS: Iron 84 ug/dL (65-175); Total Iron Binding Capacity 260 ug/dL (250-450); Transferrin Sat 32 % (20-55)
== END 2021-11-17 14:41 | disposition home or self-care (01) ==
LOC: LBN 14:40
PROVIDERS: PCP Internal Medicine; Visit Provider Internal Medicine
DX: D64.9 Anemia, unspecified (principal); I50.33 Acute on chronic diastolic (congestive) heart failure
CPT/HCPCS: 80051; 80076; 82947; 84520; 82310; 82565; 82728; 83036; 83540; 83550; 83880; 85025

== ENCOUNTER 2022-03-26 13:27 | Emergency (ER) | payer MEDICARE, OTHER, SELFPAY ==
--- NOTE | 2022-03-26 13:30 | RT.EKG_ITS ---
APPROVED REPORT Exam: Resting ECG Reason for Exam: heart problem? Patient Location: E HR:74 bpm ECG Measurements Heart Rate 74 AXIS MA 181 P 15 QRSd 99 QRS -27 QT 429 T 29 QTc 476 Conclusion Sinus rhythm...normal P axis, V-rate 60- 99 Low voltage, precordial leads...precordial leads <1.0mV sinus rhtyhm, left axis, normal intervals, non ischemic
[2022-03-26 13:33] VITALS: BP 154/62; PULSE 82; RESP 17; TEMP 37.1; O2SAT 99
[2022-03-26 13:50] VITALS: RESP 20
[2022-03-26 14:16] LABS: Abs Immature Grans 0.05 10^3/uL (0.0-0.06); Absolute Basophil Count 0.04 10^3/uL (0.0-0.2); Absolute Eosinophil Count 0.06 10^3/uL (0.0-0.7); Absolute Lymphocyte Count 1.88 10^3/uL (1.2-3.4); Absolute Monocyte Count 0.93 10^3/uL (0.1-0.8); Absolute Neutrophil Count 7.71 10^3/uL (1.2-6.7); Basophils % 0.4; Eosinophils % 0.6; HCT 36.7 % (40.0-50.0); HGB 11.4 g/dL (13.5-17.5); Immature Grans % 0.5; Lymphocytes % 17.6; MCH 29.3 pg (27.0-33.0); MCHC 31.1 % (32.0-36.0); MCV 94 fL (80-95); MPV 11.1 fL (8.0-11.0); Monocytes % 8.7; Neutrophils % 72.2; Platelet Count 217 10^3/uL (130-400); RBC 3.89 10^6/uL (4.36-5.78); RDW-SD 47.8 fL; WBC 10.67 10^3/uL (4.4-10.8)
--- NOTE | 2022-03-26 14:16 | W.ED.GENAD ---
Discharge Plan Disposition Patient Disposition: Home Condition: Improving Discharge Details Chief Complaint: GenMedical Clinical Impression: Encounter for medical assessment Primary Care Provider: SANDY ORTEGA ED Provider: Rene Cameron Home Meds and New Rx's Prescriptions: No Action terazosin 5 MG capsule 5 mg PO HS metformin 500 MG tablet 500 mg PO BID simvastatin 40 MG tablet 20 mg PO HS levothyroxine 100 MCG tablet 100 mcg PO DAILY oxybutynin chloride 5 MG tablet 10 mg PO DAILY alogliptin 12.5 mg tablet 12.5 mg PO DAILY cholecalciferol (vitamin D3) 50 mcg (2,000 unit) capsule 50 mcg PO DAILY ferrous gluconate 324 mg (38 mg iron) tablet 324 mg PO DAILY hydroxychloroquine 200 mg tablet 200 mg PO BID multivitamin Tablet 1 tab PO DAILY omega [id number]-[id number]-fish oil [Fish Oil] 60-90-500 mg capsule 1 cap PO DAILY folic acid 1 mg Tablet 1 mg PO DAILY fiber Capsule 0 cap PO DAILY PRN PRN Rx Instructions: PER PT, TAKES FIBER PRN carboxymethylcellulose sodium 0.5 % Drops 1 drp ophthalmic (eye) QID PRN PRN Rx Instructions: 1 DROP BOTH EYES QID PRN FOR DRY EYES docusate sodium [Colace] 100 mg Capsule 100 mg PO BID Qty: 60 0RF magnesium oxide 400 mg magnesium capsule 400 mg PO DAILY Qty: 7 0RF furosemide 20 mg tablet 20 mg PO DAILY Qty: 10 0RF Rx Instructions: Take 20 mg of furosemide daily. Take an additional 20 mg if you have gained 3 lbs or greater in 3 days. docusate sodium [Colace] 100 mg capsule 100 mg PO BID Qty: 14 0RF omeprazole 20 mg Capsule,Delayed Release(Dr/Ec) 40 mg PO BID@729,1999 Qty: 60 0RF sucralfate 1 gram Tablet 1 g PO BID Qty: 60 0RF furosemide 20 mg tablet See Rx Instructions .ROUTE .COMPLEX Qty: 45 0RF Rx Instructions: Take one tablet daily. Take an extra tablet if you've gained 3 lbs or greater in 3 days. Discharge Instructions Additional Instructions: Please follow-up with primary care team will be calling next week to schedule an appointment. Please try to obtain records from [place] emergency room where you had your last visit. Please return to the emergency department for any worsening symptoms. Medical Decision Making 81-year-old male recent return from [place] where he was in the emergency department briefly during his stay last month, received a phone call from relative telling him he needed to go to the emergency department for urgent evaluation is unclear for what at this time, as collateral information is questionable. Patient is asymptomatic at this time. No chest pain or shortness of breath no fevers no chills hemodynamically stable afebrile nontoxic. No respiratory symptoms clear lungs normal heart sounds no peripheral edema abdomen soft nontender nondistended. Patient is alert oriented interactive and nontoxic. Given age and comorbidities will obtain screening labs including a troponin will obtain x-ray EKG. Disposition pending results. Likely home with close follow-up 15: 36 patient was comfortably asymptomatic. Labs and imaging unremarkable. Patient be given primary care referral for next week. Encouraged to return to the emergency department for any worsening symptoms. HPI General Date/Time Provider Initiated Documentation: 03/26/22 13:38. HPI Narrative: 81-year-old male history of coronary disease presents asymptomatic at this time however was recently in [place] seen at a local emergency department family member from [place] called him after they received a phone call from the hospital allegedly telling him that he needs to go for evaluation, it is questionable whether they were calling in regards to her cardiac issue or chronic kidney disease the collateral information at this time is difficult to verify. Patient has no current complaints no chest pain or shortness of breath no nausea no vomiting no diarrhea no fevers or chills. Related Data Home Medications Medication Instructions Recorded Confirmed levothyroxine 100 mcg tablet 100 mcg PO DAILY 11/10/17 10/25/21 metformin 500 mg tablet 500 mg PO BID 11/10/17 10/25/21 oxybutynin chloride 5 mg tablet 10 mg PO DAILY 11/10/17 10/25/21 simvastatin 40 mg tablet 20 mg PO HS 11/10/17 10/25/21 terazosin 5 mg capsule 5 mg PO 11/10/17 10/25/21 alogliptin 12.5 mg tablet 12.5 mg PO DAILY 05/25/21 10/25/21 cholecalciferol (vitamin D3) 50 50 mcg PO DAILY 05/25/21 10/25/21 mcg (2,000 unit) capsule ferrous gluconate 324 mg (38 mg 324 mg PO DAILY 05/25/21 10/25/21 iron) tablet hydroxychloroquine 200 mg tablet 200 mg PO BID 05/25/21 10/25/21 multivitamin 1 tab PO DAILY 05/25/21 10/25/21 omega 6-jdy-mkn-fish oil 60 mg-90 1 cap PO DAILY 05/25/21 10/25/21 mg-500 mg capsule (Fish Oil) carboxymethylcellulose sodium 0.5 1 drp ophthalmic (eye) QID PRN PRN 10/10/21 10/25/21 % eye drops fiber 0 cap PO DAILY PRN PRN 10/10/21 10/25/21 folic acid 1 mg tablet 1 mg PO DAILY 10/10/21 10/25/21 docusate sodium 100 mg capsule 100 mg PO BID #14 caps 10/11/21 10/25/21 (Colace) docusate sodium 100 mg capsule 100 mg PO BID #60 caps 10/11/21 10/25/21 (Colace) furosemide 20 mg tablet 20 mg PO DAILY #10 tabs 10/11/21 10/25/21 magnesium oxide 400 mg PO DAILY #7 caps 10/11/21 10/25/21 furosemide 20 mg tablet See Rx Instructions .Route 10/26/21 10/25/21 .COMPLEX #45 tabs omeprazole 20 mg capsule,delayed 40 mg PO BID@729,1999 #60 caps 10/26/21 release sucralfate 1 gram tablet 1 g PO BID #60 tabs 10/26/21 Previous Rx's Medication Instructions Recorded docusate sodium 100 mg capsule 100 mg PO BID #14 caps 10/11/21 (Colace) docusate sodium 100 mg capsule 100 mg PO BID #60 caps 10/11/21 (Colace) furosemide 20 mg tablet 20 mg PO DAILY #10 tabs 10/11/21 magnesium oxide 400 mg PO DAILY #7 caps 10/11/21 furosemide 20 mg tablet See Rx Instructions .Route 10/26/21 .COMPLEX #45 tabs omeprazole 20 mg capsule,delayed 40 mg PO BID@0730,1999 #60 caps 10/26/21 release sucralfate 1 gram tablet 1 g PO BID #60 tabs 10/26/21 Allergies Allergy/AdvReac Type Severity Reaction Status Date / Time No Known Allergies Allergy Unverified 03/26/22 13:38 General Stated Complaint: GenMedical MEL: 3 Review of Systems Narrative: Review of Systems Constitutional: negative Eyes: negative ENT: negative Cardiovascular: negative Respiratory: negative Gastrointestinal: negative : negative Musculoskeletal: negative Skin: negative Neurologic: negative Psych: negative PFSH All Active Problems (Updated 03/26/22 @ 15:37 by Rene Cameron MD) Encounter for medical assessment (Acute) Chronic blood loss anemia (Acute) Symptomatic severe aortic stenosis with normal ejection fraction (Chronic) Acute on chronic diastolic heart failure (Acute) NSTEMI (non-ST elevated myocardial infarction) (Acute) CHF (congestive heart failure) (Chronic) Abnormal prostate by palpation (Acute) Anemia (Chronic) Positive FIT (fecal immunochemical test) (Acute) Constipation (Acute) Tubular adenoma of colon (Acute) Medical History BPH (benign prostatic hyperplasia) Diabetes Erectile dysfunction GERD (gastroesophageal reflux disease) Hyperlipidemia Hypertension Hypothyroid Nonrheumatic aortic (valve) stenosis Osteoarthritis Surgical History History of colonoscopy (~01/2012) 06/2021 Hx of neck surgery gland excised Family History Mother Breast cancer Father Stroke Social History Smoking/Tobacco Use Status: Former Tobacco Use Quit Date: 03/13/89 Smoking risk assessment performed?: Yes Alcohol Intake: current Alcohol Intake frequency: holidays/special occasions only Drug use: Never Substance use type: does not use Do you feel safe at home: Yes Do you feel safe in your relationship?: Yes Exam Narrative Exam Narrative: Physical Examination General: alert, awake, cooperative, resting comfortably, no acute distress HEENT: normocephalic, atraumatic; PERRL, EOM intact, conjunctiva normal; no nasal discharge; moist mucous membranes, oral and pharyngeal mucosa normal, tolerating secretions Neck: supple, trachea midline; full ROM Chest: normal to inspection Respiratory: normal respiratory effort, speaking in full sentences, clear to auscultation, no wheezing, rales or rhonchi Cardiac: regular rate, regular rhythm, S1S2 intact, no murmurs rubs or gallops GI: abdomen soft, non-tender, non-distended; no palpable mass or hepatosplenomegaly Skin: no lesions, rashes or trauma appreciated Neuro: AAOx3, normal speech, moving all extremities Extremities: Moving all extremities no signs of trauma, no peripheral edema Psych: Appropriate mood and affect Course Vital Signs Vital signs: Vital Signs Temperature 37.1 C 03/26/22 13:33 Pulse 82 03/26/22 13:33 Respiratory Rate 17 03/26/22 13:33 Blood Pressure 154/62 H 03/26/22 13:33 Pulse Oximetry 99 03/26/22 13:33 Temperature 37.1 C 03/26/22 13:33 Temperature Source Skin 03/26/22 13:33 Pulse 82 03/26/22 13:33 Respiratory Rate 20 03/26/22 13:50 Respiratory Effort 03/26/22 13:50 Respiratory Depth Normal 03/26/22 13:50 Respiratory Pattern Normal 03/26/22 13:50 Blood Pressure 154/62 H 03/26/22 13:33 Blood Pressure Position Sitting 03/26/22 13:33 Pulse Oximetry 99 03/26/22 13:33 Oxygen Delivery Method Room Air 03/26/22 13:33 Oxygen Flow Rate 0 03/26/22 13:33 Pain Level 0 03/26/22 13:33
[2022-03-26 14:30] LABS: ALT 23 U/L (16-63); AST 27 U/L (15-37); Albumin 4.1 g/dL (3.4-5.0); Alkaline Phosphatase 77 U/L (46-116); Anion Gap 9.1 mmol/L (3-11); BUN 32 mg/dL (7-18); Bilirubin, Total 0.5 mg/dL (0.2-1.0); CO2 24.9 mmol/L (21.0-32.0); CREATININE 1.7 mg/dL (0.70-1.30); Calcium 10.5 mg/dL (8.5-10.1); Chloride 109 mmol/L (98-107); Glucose 136 mg/dL (74-106); Potassium 4.4 mmol/L (3.5-5.1); Sodium 143 mmol/L (136-145); Total Protein 7.8 g/dL (6.4-8.2); Troponin I < 50 ng/L (<or=60)
--- NOTE | 2022-03-26 14:30 | DI.RAD_ITS ---
Exam(s) XR PORTABLE CHEST AP EXAM: XR PORTABLE CHEST AP CLINICAL HISTORY: chest pain TECHNIQUE: 2D digital imaging was performed of the chest. One image was obtained. An AP view was ob tained. COMPARISON: CR XR PORTABLE CHEST AP from 10/25/2021 FINDINGS: MEDIASTINUM: Normal. HEART: Normal. PULMONARY VASCULATURE: Normal. LUNGS: Clear. PLEURAL SPACE: No pleural effusion or pneumothorax. BONE:Within normal limits for the patient's age. OTHER FINDINGS:Normal. IMPRESSION: No acute pulmonary findings. DATA REPOSITORY: RADIATION DOSE DELIVERED:
--- NOTE | 2022-03-26 15:03 | DI.VRAD_ITS ---
PROCEDURE INFORMATION: Exam: XR Chest Exam date and time: 03/26/2022 2:12 PM Age: 81 years old Clinical indication: Other: Chest pain TECHNIQUE: Imaging protocol: Radiologic exam of the chest. Views: 1 view. COMPARISON: CR XR PORTABLE CHEST AP 10/25/2021 3:34 PM FINDINGS: Lungs: Unremarkable. No consolidation. Pleural spaces: No pleural effusion. No pneumothorax. Heart/Mediastinum: Heart size is normal for technique. Bones/joints: No acute bone abnormality. IMPRESSION: No acute findings. Dictated and Authenticated by: Gaby King MD. Ordering:PJUNG López MD
[2022-03-26 15:41] VITALS: BP 151/68; PULSE 71; RESP 20; O2SAT 98
== END 2022-03-26 15:56 | disposition home or self-care (01) ==
PROVIDERS: Emergency Provider Emergency Medicine; PCP Internal Medicine
DX: Z00.00 Encounter for general adult medical examination without abnormal findings (principal); E11.9 Type 2 diabetes mellitus without complications; I10 Essential (primary) hypertension
CPT/HCPCS: 80053; 93005; 99284; 71045; 84484; 85025; 93010; 99285

== ENCOUNTER 2022-04-24 17:01 | Emergency (ER) | payer MEDICARE, OTHER, SELFPAY ==
[2022-04-24] VITALS (12 sets, daily range): BP systolic 105–126; BP diastolic 49–87; PULSE 83–97; RESP 21–28; O2SAT 100
--- NOTE | 2022-04-24 16:45 | RT.EKG_ITS ---
APPROVED REPORT Exam: Resting ECG Reason for Exam: SOB Patient Location: E HR:88 bpm ECG Measurements Heart Rate 88 AXIS [place] 169 P 8 QRSd 91 QRS -13 QT 424 T 20 QTc 514 Conclusion Sinus rhythm...normal P axis, V-rate 60- 99 Ventricular premature complex...V complex w/ short R-R interval Aberrant conduction of SV complex(es)...aberrant shape, [place] 80-220 Inferior infarct, old...Q >35mS, II III aVF Prolonged QT interval...QTc >500mS I have reviewed and interpreted ECG and agree with software generated interpretation.
--- NOTE | 2022-04-24 17:00 | DI.RAD_ITS ---
Exam(s) XR PORTABLE CHEST AP EXAM: XR PORTABLE CHEST AP CLINICAL HISTORY: sob, hx of chf. TECHNIQUE: 2D digital imaging was performed. COMPARISON: CR,XR XR PORTABLE CHEST AP from 03/26/2022 FINDINGS: Single AP portable view. Chest leads in place. Mild cardiomegaly again noted. The mediastinum is not widened. There are bilateral increased interstitial markings throughout the lung boggs. No obvious pleural e ffusions. IMPRESSION: As above. Both infectious as well as pulmonary edema etiologies to be considered. DATA REPOSITORY: RADIATION DOSE DELIVERED:
--- NOTE | 2022-04-24 17:11 | W.ED.GENAD ---
Discharge Plan Disposition Patient Disposition: Home Condition: Good Discharge Details Clinical Impression: CHF exacerbation Primary Care Provider: SANDY ORTEGA ED Provider: Harrison Hernandez Home Meds and New Rx's Prescriptions: New amoxicillin-pot clavulanate 875-125 mg tablet 1 tab PO BID Qty: 20 0RF Continued terazosin 5 MG capsule 5 mg PO HS metformin 500 MG tablet 500 mg PO BID simvastatin 40 MG tablet 20 mg PO HS levothyroxine 100 MCG tablet 100 mcg PO DAILY oxybutynin chloride 5 MG tablet 10 mg PO DAILY alogliptin 12.5 mg tablet 12.5 mg PO DAILY cholecalciferol (vitamin D3) 50 mcg (2,000 unit) capsule 50 mcg PO DAILY ferrous gluconate 324 mg (38 mg iron) tablet 324 mg PO DAILY hydroxychloroquine 200 mg tablet 200 mg PO BID multivitamin Tablet 1 tab PO DAILY omega 2-ram-uyx-fish oil [Fish Oil] 60-90-500 mg capsule 1 cap PO DAILY folic acid 1 mg Tablet 1 mg PO DAILY fiber Capsule 0 cap PO DAILY PRN PRN Rx Instructions: PER PT, TAKES FIBER PRN carboxymethylcellulose sodium 0.5 % Drops 1 drp ophthalmic (eye) QID PRN PRN Rx Instructions: 1 DROP BOTH EYES QID PRN FOR DRY EYES docusate sodium [Colace] 100 mg Capsule 100 mg PO BID Qty: 60 0RF magnesium oxide 400 mg magnesium capsule 400 mg PO DAILY Qty: 7 0RF furosemide 20 mg tablet 20 mg PO DAILY Qty: 10 0RF Rx Instructions: Take 20 mg of furosemide daily. Take an additional 20 mg if you have gained 3 lbs or greater in 3 days. docusate sodium [Colace] 100 mg capsule 100 mg PO BID Qty: 14 0RF omeprazole 20 mg Capsule,Delayed Release(Dr/Ec) 40 mg PO BID@729,1999 Qty: 60 0RF sucralfate 1 gram Tablet 1 g PO BID Qty: 60 0RF furosemide 20 mg tablet See Rx Instructions .ROUTE .COMPLEX Qty: 45 0RF Rx Instructions: Take one tablet daily. Take an extra tablet if you've gained 3 lbs or greater in 3 days. Discharge Instructions Instructions: Heart Failure (ED) Additional Instructions: At this time you do have mild congestive heart failure. Please continue to take your Lasix water pill as directed. Avoid any salty foods. You have been given additional Lasix today. Please double your Lasix dose tomorrow as well. Chest x-ray shows evidence of mild fluid overload, but I am concerned for potential mild early pneumonia. Please take the antibiotic Augmentin as directed. You have been given a small bottle here, we have sent a prescription to your pharmacy for the rest of the dosing. If you notice any worsening of your symptoms, or any new symptoms such as vomiting, diarrhea, fever, chills, shortness of breath, chest pain, numbness, weakness, or fainting , please return immediately to the emergency department for reevaluation. Please follow up with your primary care provider as soon as possible for reassessment and reevaluation. As always, it was a pleasure participating in your medical care today. Referrals: SANDY ORTEGA [Primary Care Provider] - Medical Decision Making 82-year-old male with a past medical history of congestive heart failure, BPH, GERD, high cholesterol, hypertension, severe aortic stenosis, type 2 diabetes, who presents today for shortness of breath. Patient states that he has had shortness of breath over the last 2 to 3 days, gradually worsening. He states he has been taking his diuretics as directed. He states he has not missed any of his medications. He denies any significantly new salty foods over the last few days. He denies any chest pain. He states that shortness of breath is made worse when he sits upright, and not when he lies down. He denies any history of COPD. He denies any arm neck or shoulder pain. He denies any chest wall tightness. No other complaints at this time. No other modifying factors. When EMS responded to the 911 call, patient was noted to be hypoxic at 90, on 2 L of supplemental oxygen. He was given 1 nitroglycerin and started on CPAP. He tolerated this well. He was brought in for further assessment. Physical exam demonstrates well-appearing male, oxygenation is in the low 90s on 3 to 4 L of supplemental oxygen. Mild crackles throughout. Mild B-lines present on bedside echo/ultrasound. Differential is highest for congestive heart failure exacerbation. Will give 20 mg of IV Lasix, get a portable chest x-ray, continue supplemental oxygen. Monitor closely and reassess. Patient has been taken off of CPAP as he is not tolerating it at this time. 7:27 PM. Patient has been given 40 mg of IV Lasix, chest x-ray shows diffuse interstitial prominence, and possible interstitial edema. Laboratory work-up shows a white count of 14, no bandemia. Renal function stable, VBG stable. proBNP is notably elevated at 5000, troponin normal. COVID flu and RSV is negative. On reassessment patient is feeling much better. He has been titrated off of all of his supplemental oxygen. We did get the patient up and ambulate him throughout the emergency department, oxygenation remained at or above 94%. He was dyspneic, but oxygen remained stable. We had a long discussion with the patient. Currently there are no beds available for admission, no other beds are available for local transfer. We did discuss options for continued observation in the ED versus transfer to a outlying facility, and at this time through shared decision-making process patient states that he prefers to go home, and come back if symptoms return or worsen. Out of an abundance of caution, with his elevated white count and the potential for obfuscation of potential infection we will start the patient on Augmentin to treat potential early pneumonia as well compounding his mild CHF. The patient shows no clinical evidence of STEMI, or ACS clinically at this time. No chest pain. Symptoms are consistent with mild CHF exacerbation which is improved after 40 mg of IV Lasix. Patient stable for discharge with close follow-up. Discussed red flags for which to return. I have extensively reviewed the treatment plan and discharge instructions with the patient. I have addressed all patient concerns at this time. The patient was made aware of what symptoms to monitor for that would warrant a return to the emergency department. Discussed the plan with the patient, they demonstrate verbal understanding and agreement with our assessment and plan at this time. The documentation in this chart was dictated using [employer] dictation software. Please excuse any dictation errors. FINDINGS: Lungs: Low lung volumes. Diffuse interstitial lung disease. Bilateral lower lobe atelectasis. No lung consolidation. Pleural spaces: Small right pleural effusion. Heart/Mediastinum: Unremarkable. No cardiomegaly. Bones/joints: Unremarkable. IMPRESSION: Diffuse interstitial prominence. Possible interstitial edema. Thank you for allowing us to participate in the care of your patient. Dictated and Authenticated by: Cecil Marte MD 04/24/2022 6:00 PM Eastern Time ([place] & [place]) HPI General Date/Time Provider Initiated Documentation: 04/24/22 17:05. HPI Narrative: 82-year-old male with a past medical history of congestive heart failure, BPH, GERD, high cholesterol, hypertension, severe aortic stenosis, type 2 diabetes, who presents today for shortness of breath. Patient states that he has had shortness of breath over the last 2 to 3 days, gradually worsening. He states he has been taking his diuretics as directed. He states he has not missed any of his medications. He denies any significantly new salty foods over the last few days. He denies any chest pain. He states that shortness of breath is made worse when he sits upright, and not when he lies down. He denies any history of COPD. He denies any arm neck or shoulder pain. He denies any chest wall tightness. No other complaints at this time. No other modifying factors. When EMS responded to the 911 call, patient was noted to be hypoxic at 90, on 2 L of supplemental oxygen. He was given 1 nitroglycerin and started on CPAP. He tolerated this well. He was brought in for further assessment. Related Data Home Medications Medication Instructions Recorded Confirmed levothyroxine 100 mcg tablet 100 mcg PO DAILY 11/10/17 04/24/22 metformin 500 mg tablet 500 mg PO BID 11/10/17 04/24/22 oxybutynin chloride 5 mg tablet 10 mg PO DAILY 11/10/17 04/24/22 simvastatin 40 mg tablet 20 mg PO HS 11/10/17 04/24/22 terazosin 5 mg capsule 5 mg PO 11/10/17 04/24/22 alogliptin 12.5 mg tablet 12.5 mg PO DAILY 05/25/21 04/24/22 cholecalciferol (vitamin D3) 50 50 mcg PO DAILY 05/25/21 04/24/22 mcg (2,000 unit) capsule ferrous gluconate 324 mg (38 mg 324 mg PO DAILY 05/25/21 04/24/22 iron) tablet hydroxychloroquine 200 mg tablet 200 mg PO BID 05/25/21 04/24/22 multivitamin 1 tab PO DAILY 05/25/21 04/24/22 omega 1-vht-hwb-fish oil 60 mg-90 1 cap PO DAILY 05/25/21 04/24/22 mg-500 mg capsule (Fish Oil) carboxymethylcellulose sodium 0.5 1 drp ophthalmic (eye) QID PRN PRN 10/10/21 04/24/22 % eye drops fiber 0 cap PO DAILY PRN PRN 10/10/21 04/24/22 folic acid 1 mg tablet 1 mg PO DAILY 10/10/21 04/24/22 docusate sodium 100 mg capsule 100 mg PO BID #14 caps 10/11/21 04/24/22 (Colace) docusate sodium 100 mg capsule 100 mg PO BID #60 caps 10/11/21 04/24/22 (Colace) furosemide 20 mg tablet 20 mg PO DAILY #10 tabs 10/11/21 04/24/22 magnesium oxide 400 mg PO DAILY #7 caps 10/11/21 04/24/22 furosemide 20 mg tablet See Rx Instructions .Route 10/26/21 04/24/22 .COMPLEX #45 tabs omeprazole 20 mg capsule,delayed 40 mg PO BID@0730,1999 #60 caps 10/26/21 04/24/22 release sucralfate 1 gram tablet 1 g PO BID #60 tabs 10/26/21 04/24/22 amoxicillin 875 mg-potassium 1 tab PO BID #20 tabs 04/24/22 clavulanate 125 mg tablet Previous Rx's Medication Instructions Recorded docusate sodium 100 mg capsule 100 mg PO BID #14 caps 10/11/21 (Colace) docusate sodium 100 mg capsule 100 mg PO BID #60 caps 10/11/21 (Colace) furosemide 20 mg tablet 20 mg PO DAILY #10 tabs 10/11/21 magnesium oxide 400 mg PO DAILY #7 caps 10/11/21 furosemide 20 mg tablet See Rx Instructions .Route 10/26/21 .COMPLEX #45 tabs omeprazole 20 mg capsule,delayed 40 mg PO BID@30,1999 #60 caps 10/26/21 release sucralfate 1 gram tablet 1 g PO BID #60 tabs 10/26/21 amoxicillin 875 mg-potassium 1 tab PO BID #20 tabs 04/24/22 clavulanate 125 mg tablet Allergies Allergy/AdvReac Type Severity Reaction Status Date / Time No Known Allergies Allergy Unverified 04/24/22 17:07 General Stated Complaint: SOB/SuddenOnset MEL: 3 Review of Systems All systems reviewed & are unremarkable except as noted in HPI and below PFSH All Active Problems (Updated 04/24/22 @ 19:16 by Harrison Hernandez DO) Encounter for medical assessment (Acute) CHF exacerbation (Acute) Chronic blood loss anemia (Acute) Symptomatic severe aortic stenosis with normal ejection fraction (Chronic) Acute on chronic diastolic heart failure (Acute) NSTEMI (non-ST elevated myocardial infarction) (Acute) CHF (congestive heart failure) (Chronic) Abnormal prostate by palpation (Acute) Anemia (Chronic) Positive FIT (fecal immunochemical test) (Acute) Constipation (Acute) Tubular adenoma of colon (Acute) Medical History BPH (benign prostatic hyperplasia) Diabetes Erectile dysfunction GERD (gastroesophageal reflux disease) Hyperlipidemia Hypertension Hypothyroid Nonrheumatic aortic (valve) stenosis Osteoarthritis Surgical History History of colonoscopy (~01/2012) 06/2021 Hx of neck surgery gland excised Family History Mother Breast cancer Father Stroke Social History Smoking/Tobacco Use Status: Former Tobacco Use Quit Date: 03/13/89 Smoking risk assessment performed?: Yes Alcohol Intake: current Alcohol Intake frequency: holidays/special occasions only Drug use: Never Substance use type: does not use Do you feel safe at home: Yes Do you feel safe in your relationship?: Yes Exam Narrative Exam Narrative: 1.Const: Well-nourished, Well-developed, appearing stated age 2.Eyes: PERRL, no conjunctival injection, and symmetrical lids. 3.ENT: Atraumatic external nose and ears. Moist MM. Neck: Symmetric, trachea midline, No thyromegaly. 4.CVS: +S1/S2, Peripheral pulses 2+ and equal in all extremities. Brisk capillary refill in all extremities. 5.RESP: Mild crackles throughout, especially in the bases. No rhonchi. No wheeze. 6.GI: Soft, Nontender/Nondistended, No hepatosplenomegaly. No guarding or rebound. 7.MSK: Normocephalic/Atraumatic, Extremities w/o deformity or ttp No cyanosis or clubbing, Normal movement of all extremities. 1 pitting edema of the lower extremities bilaterally 8.Skin: Warm, Dry. No rashes or lesions. 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 Sensation grossly intact, no focal neurologic deficits. 10.Psych: (AAO) x3. Appropriate mood and affect Course Vital Signs Vital signs: Vital Signs Pulse 93 H 04/24/22 16:56 Respiratory Rate 24 04/24/22 16:56 Blood Pressure 126/58 L 04/24/22 16:56 Pulse Oximetry 100 04/24/22 16:56 Pulse 93 H 04/24/22 16:56 Respiratory Rate 24 04/24/22 16:56 Respiratory Effort Short of Breath, Incrsd Work of Breathing 04/24/22 17:10 Blood Pressure 126/58 L 04/24/22 16:56 Blood Pressure Position Sitting 04/24/22 16:56 Pulse Oximetry 100 04/24/22 16:56 Oxygen Delivery Method Room Air 04/24/22 16:56 Oxygen Flow Rate 0 04/24/22 16:56
[2022-04-24 17:22] LABS: Abs Immature Grans 0.06 10^3/uL (0.0-0.06); Absolute Eosinophil Count 0.01 10^3/uL (0.0-0.7); Absolute Lymphocyte Count 0.97 10^3/uL (1.2-3.4); Absolute Neutrophil Count 11.86 10^3/uL (1.2-6.7); BE (Venous) -2 mmol/L (-2-3); Basophils % 0.1; Eosinophils % 0.1; HCO3 (Venous) 22 mmol/L (23-28); HCT 29.2 % (40.0-50.0); HGB 9.1 g/dL (13.5-17.5); Immature Grans % 0.4; Lymphocytes % 6.8; MCH 29.4 pg (27.0-33.0); MCHC 31.2 % (32.0-36.0); MCV 94 fL (80-95); MPV 10.5 fL (8.0-11.0); Monocytes % 9.5; Neutrophils % 83.1; O2 Sat (Venous) 81 %; Platelet Count 193 10^3/uL (130-400); RDW 14.9 % (11.8-14.1); RDW-SD 51.6 fL; TCO2 (Venous) 21 mmol/L (24-29); WBC 14.27 10^3/uL (4.4-10.8); pCO2 (Venous) 35 mmHg (41-51); pH (Venous) 7.42 (7.31-7.41); pO2 (Venous) 44 mmHg
[2022-04-24 17:24] LABS: Absolute Basophil Count 0.01 10^3/uL (0.0-0.2); Absolute Monocyte Count 1.36 10^3/uL (0.1-0.8)
[2022-04-24] MEDS: Furosemide 20 MG/2 ML VIAL IVP ×2 (17:34→19:25)
[2022-04-24 17:43] LABS: ALT 16 U/L (16-63); AST 17 U/L (15-37); Albumin 3.3 g/dL (3.4-5.0); Alkaline Phosphatase 75 U/L (46-116); Anion Gap 7.7 mmol/L (3-11); BUN 24 mg/dL (7-18); Bilirubin, Total 0.7 mg/dL (0.2-1.0); CO2 23.3 mmol/L (21.0-32.0); CREATININE 1.7 mg/dL (0.70-1.30); Calcium 8.8 mg/dL (8.5-10.1); Chloride 104 mmol/L (98-107); Estimated GFR 40.25 (mL/min/1.73m2); Glucose 122 mg/dL (74-106); Potassium 4.6 mmol/L (3.5-5.1); Sodium 135 mmol/L (136-145); Total Protein 6.3 g/dL (6.4-8.2); Troponin I 58 ng/L (<or=60)
--- NOTE | 2022-04-24 18:00 | DI.VRAD_ITS ---
PROCEDURE INFORMATION: Exam: XR Chest Exam date and time: 04/24/2022 5:09 PM Age: 82 years old Clinical indication: Shortness of breath; Patient HX: SOB, HX of chf TECHNIQUE: Imaging protocol: Radiologic exam of the chest. Views: 1 view. COMPARISON: XR CHEST 1V IN DI DEPT 03/26/2022 2:12 PM FINDINGS: Lungs: Low lung volumes. Diffuse interstitial lung disease. Bilateral lower lobe atelectasis. No lung consolidation. Pleural spaces: Small right pleural effusion. Heart/Mediastinum: Unremarkable. No cardiomegaly. Bones/joints: Unremarkable. IMPRESSION: Diffuse interstitial prominence. Possible interstitial edema. Dictated and Authenticated by: Cecil Marte MD. Ordering:BLADIMIR Terry MD
[2022-04-24 18:02] LABS: COVID-19 PCR Negative (Negative); Influenza A PCR Negative (Negative); Influenza B PCR Negative (Negative); NT-proBNP 5070 pg/mL (<300); RSV PCR Negative (Negative)
[2022-04-24 18:05] LABS: Source Nasopharynx
--- NOTE | 2022-04-24 18:41 | NUR.NOTE ---
Nursing Note: patient stood at darby of bed to use urinal. Became dyspnic, sats remained over 95%. oxygen boosted to 4L for comfort, decreased down to 2L after rest.
[2022-04-24] MEDS: Amox. 875/Clav. 125, 2 TABS/BTL 1 TAB PO (19:40)
--- NOTE | 2022-04-24 19:40 | NUR.NOTE ---
Nursing Note: extensively reviewed discharge instructions, patient agreeable to plan to double water pill and start abx in addition to rest.
== END 2022-04-24 19:46 | disposition home or self-care (01) ==
PROVIDERS: Emergency Provider Student in an Organized Health Care Education/Training Program; PCP Internal Medicine
DX: I11.0 Hypertensive heart disease with heart failure (principal); I50.9 Heart failure, unspecified; E11.9 Type 2 diabetes mellitus without complications; D72.829 Elevated white blood cell count, unspecified; Z20.822 Contact with and (suspected) exposure to COVID-19
CPT/HCPCS: 80053; 82805; 87637; 93005; 96374; 96375; 99284; 99285; 71045; 83880; 84484; 85025; 93010; J1941

== ENCOUNTER 2022-08-10 01:51 | Outpatient (CLI) | payer OTHER, SELFPAY ==
--- NOTE | 2022-08-10 07:37 | DI.US_ITS ---
APPROVED REPORT EXAM: Comprehensive 2D, Doppler, and color-flow Echocardiogram Patient Location: Out-Patient Senior Test Engineer: Joe Sheth RDMS, RVT Indications: Post TAVR f/u echo, nonrheumatic aortic valve stenosis, TAVR 05/2022 Other Information Study Quality: Adequate Conclusion Normal left ventricular wall thickness and chamber size. Ejection fraction is 50 to 55%. There is a subtle apical wall motion abnormality Normal right ventricular size and systolic function Both atria are normal in size Status post transcatheter aortic valve replacement. Mean gradient is 9 mmHg. There is no aortic or paravalvular regurgitation Mildly thickened mitral leaflets, mild mitral regurgitation Normal tricuspid valve with trace regurgitation. Estimated right ventricular systolic pressure is 19 mmHg Wall motion Left Ventricle The left ventricle is normal size. Ventricular systolic function is borderline There is normal left v entricular wall thickness. Regional wall motion abnormalities are noted. There is no ventricular sep pura defect visualized. LVEF is 50-55%. Right Ventricle The right ventricle is normal size. Right ventricular systolic function is grossly normal. The RVSP i s 19.4 mmHg. Atria The left atrium size is normal. The right atrium size is normal. The interatrial septum is intact wit h no evidence for an atrial septal defect. Aortic Valve Mean gradient is 9 mmHg No aortic regurgitation is present. Bioprosthetic TAVR aortic valve is prese nt. Mitral Valve Mildly thickened mitral leaflets No evidence of mitral valve stenosis. Mild mitral regurgitation. Tricuspid Valve The tricuspid valve is normal in structure. There is no tricuspid valve stenosis. Trace tricuspid reg urgitation. Pulmonic Valve The pulmonary valve is normal in structure. There is no pulmonic valvular stenosis. Mild eccentric pu lmonic regurgitation. Great Vessels The aortic root is normal in size. Ascending aorta is not well visualized. Aortic arch is normal in c aliber. IVC is normal in size and collapses >50% with inspiration. Pericardium There is no pericardial effusion. 2D Dimensions IVSD d PLAX 0.82 cm M: 0.6-1.2 LV Vol A2C d MOD 128.5 mL LVPW d PLAX 0.97 cm M: 0.6 - 1.2 LV Vol A4C d MOD 134.8 mL LVID d PLAX 4.75 cm M: 4.2 - 5.8 LA Area A4C s MOD 14.08 cm2 LVDs 3.75 cm M: 2.5 - 4.0 LA Area A2C s MOD 18.49 cm2 Ao Root d 3.13 cm M: 3.1 - 3.7 LV EF A4C MOD 43.1 % LV EF Teichholz 42.1 % LV EF A2C MOD 43.9 % LVEF (Oneal's) 42.81 % M: 52 - 72 LV EF Biplane MOD 42.8 % LV Volume 132.76 mL M: 62 - 150 SV 56.83 mL LV Volume Index 74.58 mL/m2 M: 34 - 74 LV Vol Biplane MOD 132.8 mL FS 20.65 % LV Diastology MV E' medial 0.083 (>0.07 m/s) E/A Ratio 0.6 LV E/e MED 9.40 (<14) MV E Vmax 0.78 (0.4-1.3 m/s) MV E' lateral 0.081 (>0.1 m/s) MV A Vmax 1.20 (0.4-1.3 m/s) LV E/e LAT 9.60 (<14) MV E/A Ratio 0.65 MV E/E' medial 9.41 MV E/E' lateral 9.60 Aortic Valve LVOT Area 3.72 cm2 AoV Area Vmax 2.92 cm2 LVOT Vmax 1.73 m/s MARCELLA Mean Naresh. 2.99 cm2 LVOT Mean Naresh. 1.15 m/s LVOT Peak Grad 12.0 mmHg LVOT Mean Grad 6.2 mmHg LVOT VTI 0.405 m LVOT Diam s 2.15 cm AoV Vmax 2.21 m/s Velocity Ratio 0.78 AoV Mean Naresh. 1.43 m/s AoV Peak Grad 19.6 mmHg LVOT SV 150.58 mL AoV Mean Grad 10.5 mmHg AoV VTI 0.391 m AoV Area VTI 3.85 cm2 Mitral Valve MV DT 325 (160-240 msec) MV PHT 94 msec MV Area PHT 2.34 cm2 Pulmonary Valve PV Vmax 1.26 (0.5-1.5 m/s) RVOT Peak Gr. 1.12 mmHg PV Peak Grad 6.4 mmHg RVOT Mean Gr. 0.45 mmHg PV Mean Grad 3.9 mmHg RVOT VTI 0.102 m PV VTI 0.225 m RVOT Vmax 0.53 m/s Tricuspid Valve TR Peak Grad 16.3 mmHg TR Vmax 2.02 m/s RA Pressure 3.00 mmHg RVSP (TR) 19.4 mmHg
== END 2022-08-10 02:11 ==
PROVIDERS: PCP Internal Medicine; Visit Provider Student in an Organized Health Care Education/Training Program
DX: I35.0 Nonrheumatic aortic (valve) stenosis (principal); I21.4 Non-ST elevation (NSTEMI) myocardial infarction; I50.9 Heart failure, unspecified
CPT/HCPCS: 93306

== ENCOUNTER 2024-05-31 11:12 | Emergency (ER) | payer OTHER, SELFPAY ==
[2024-05-31 11:16] VITALS: BP 153/89; PULSE 86; RESP 23; TEMP 36.8; O2SAT 94
--- NOTE | 2024-05-31 11:30 | DI.US_ITS ---
Exam(s) US LOWER EXTREMITY VENOUS RT EXAM: US LOWER EXTREMITY VENOUS RT CLINICAL HISTORY: Post popliteal swelling and mild pain.Eval dvt. TECHNIQUE: Lower extremity venous ultrasound performed using grayscale, color-flow, and spectral Do ppler analysis. COMPARISON: CR XR KNEE RT 3V AP,LAT,YVROSE from 05/31/2024 FINDINGS: The common femoral, femoral and popliteal veins demonstrate normal compressibility, augmentation, and color Doppler. The posterior tibial and peroneal veins are patent. No saphenous vein thrombosis or other superficial venous thrombosis is seen. No hematoma. Guy's cyst noted of measuring 3.1 x 1.0 x 3.1 cm. IMPRESSION: Small guy cyst. No evidence of DVT. DATA REPOSITORY:
--- NOTE | 2024-05-31 11:30 | DI.RAD_ITS ---
Exam(s) XR KNEE RT 3V AP,LAT,YVROSE EXAM: XR KNEE RT 3V AP,LAT,YVROSE CLINICAL HISTORY: knee caught, fell, now pain resolved. TECHNIQUE: 2D digital imaging was performed. Three views. COMPARISON: CR LEFT KNEE 3 VIEW COMPLETE from 09/30/2017 FINDINGS: BONES: No acute fracture is present. No bony destructive lesion is seen. Enthesophytes at patella a nd tibial tubercle. JOINTS: The knee is normally aligned. A small joint effusion is seen. The joint spaces are maintain ed. SOFT TISSUE: Normal vascular calcifications. IMPRESSION: Small joint effusion. DATA REPOSITORY: RADIATION DOSE DELIVERED:
--- NOTE | 2024-05-31 11:35 | W.ED.GENAD ---
Discharge Plan Disposition Patient Disposition: Home Condition: Good Discharge Details Chief Complaint: Orthopedic Clinical Impression: Guy cyst Primary Care Provider: SANDY ORTEGA ED Provider: Harrison Hernandez Home Meds and New Rx's Prescriptions: No Action levothyroxine 100 MCG tablet 100 mcg PO DAILY ferrous gluconate 324 mg (38 mg iron) tablet 324 mg PO DAILY folic acid 1 mg Tablet 1 mg PO DAILY carboxymethylcellulose sodium 0.5 % Drops 1 drp ophthalmic (eye) DAILY Rx Instructions: 1 DROP BOTH EYES QID PRN FOR DRY EYES spironolactone 25 mg tablet 12.5 mg PO DAILY aspirin [Adult Low Dose Aspirin] 81 mg tablet,delayed release (DR/EC) 81 mg PO DAILY tamsulosin 0.4 mg capsule 0.4 mg PO QHS cholecalciferol (vitamin D3) 10 mcg (400 unit) capsule 10 mcg PO DAILY Entresto 24-26 mg tablet 1 tab PO BID PreserVision AREDS 4,296 mcg-226 mg-90 mg capsule 1 cap PO BID atorvastatin 80 mg tablet 80 mg PO QHS empagliflozin 25 mg tablet 12.5 mg PO DAILY metoprolol succinate 50 mg tablet extended release 24 hr 50 mg PO DAILY omeprazole 20 mg Capsule,Delayed Release(Dr/Ec) 40 mg PO DAILY Discharge Instructions Instructions: Guy's Cyst (DC) Additional Instructions: At this time your workup shows no evidence of blood clot or fracture in your knee. You do have what is called a Guy's cyst with is a mild area of inflammatory soft tissues behind your knee. Please ice this frequently, use an Berhane wrap as needed, take Tylenol for pain and swelling. Apply [id number] Voltaren gel 3-4 times daily as needed. If you notice any worsening of your symptoms, or any new symptoms such as vomiting, diarrhea, fever, chills, shortness of breath, chest pain, numbness, weakness, or fainting , please return immediately to the emergency department for reevaluation. Please follow up with your primary care provider as soon as possible for reassessment and reevaluation. As always, it was a pleasure participating in your medical care today. Referrals: SANDY ORTEGA [Primary Care Provider] - [facility] General Date/Time Provider Initiated Documentation: 05/31/24 11:22. HPI Narrative: 84-year-old male who is a [facility] with a past medical history of previous NSTEMI, ANNABELLA, CHF, who presents today for evaluation of right knee pain. Patient states that he got up last evening, and when he did his right knee gave out, he fell and hit the knee on the floor. He had mild soreness at that time, since then the pain is notably improved. He is able to ambulate well without significant pain now, but there is some mild soreness. He does elicit pain when he flexes his knee to its maximal point. He admits to a small bit of swelling and achiness in the back aspect of his knee. He denies hitting his head or any other trauma. [facility] and they recommended he come for further evaluation to the ED. No other complaints at this time. No other modifying factors. Related Data Home Medications ?Medication ?Instructions ?Recorded ?Confirmed levothyroxine 100 mcg tablet 100 mcg PO DAILY 11/10/17 05/31/24 ferrous gluconate 324 mg (38 mg 324 mg PO DAILY 05/25/21 05/31/24 iron) tablet carboxymethylcellulose sodium 0.5 1 drp ophthalmic (eye) DAILY 10/10/21 05/31/24 % eye drops folic acid 1 mg tablet 1 mg PO DAILY 10/10/21 05/31/24 aspirin 81 mg tablet,delayed 81 mg PO DAILY 05/31/24 05/31/24 release (Adult Low Dose Aspirin) atorvastatin 80 mg tablet 80 mg PO QHS 05/31/24 05/31/24 cholecalciferol (vitamin D3) 10 10 mcg PO DAILY 05/31/24 05/31/24 mcg (400 unit) capsule empagliflozin 25 mg tablet 12.5 mg PO DAILY 05/31/24 05/31/24 metoprolol succinate 50 mg 50 mg PO DAILY 05/31/24 05/31/24 tablet,extended release 24 hr omeprazole 20 mg capsule,delayed 40 mg PO DAILY 05/31/24 05/31/24 release sacubitril 24 mg-valsartan 26 mg 1 tab PO BID 05/31/24 05/31/24 tablet (Entresto) spironolactone 25 mg tablet 12.5 mg PO DAILY 05/31/24 05/31/24 tamsulosin 0.4 mg capsule 0.4 mg PO QHS 05/31/24 05/31/24 vitamins A,C,P-ldss-ncmpom 4,296 1 cap PO BID 05/31/24 05/31/24 mcg-226 mg-90 mg capsule (PreserVision AREDS) Allergies Allergy/AdvReac Type Severity Reaction Status Date / Time No Known Allergies Allergy Verified 05/31/24 11:20 General Stated Complaint: Orthopedic MEL: 3 Exam Narrative Exam Narrative: 1.Const: Well-nourished, Well-developed, appearing stated age 2.Eyes: PERRL, no conjunctival injection, and symmetrical lids. 3.ENT: Atraumatic external nose and ears. Moist MM. Neck: Symmetric, trachea midline, No thyromegaly. 4.CVS: +S1/S2, Peripheral pulses 2+ and equal in all extremities. Brisk capillary refill in all extremities. 5.RESP: Unlabored respiratory effort. Clear to auscultation bilaterally. No wheezes rales or rhonchi 6.GI: Soft, Nontender/Nondistended, No hepatosplenomegaly. No guarding or rebound. 7.MSK: Normocephalic/Atraumatic, Extremities w/o deformity. No cyanosis or clubbing, Normal movement of all extremities The knee is stable to varus, valgus, and anterior drawer stress. No deformity. Patellar grind test is negative. Gregory test is negative for pain. Patient is able to walk without difficulty. No edema or warmth to the joint. No ttp to the patella, tibial plateau, or fibular head. Minimal achiness in the posterior aspect of the right knee. 8.Skin: Warm, Dry. No rashes or lesions. 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 Sensation grossly intact, no focal neurologic deficits. 10.Psych: (AAO) x3. Appropriate mood and affect Course Vital Signs Vital signs: Vital Signs Temperature 36.8 C 05/31/24 11:16 Pulse 86 05/31/24 11:16 Respiratory Rate 23 05/31/24 11:16 Blood Pressure 153/89 H 05/31/24 11:16 Pulse Oximetry 94 05/31/24 11:16 Temperature 36.8 C 05/31/24 11:16 Temperature Source Oral 05/31/24 11:16 Pulse 86 05/31/24 11:16 Respiratory Rate 23 05/31/24 11:16 Blood Pressure 153/89 H 05/31/24 11:16 Blood Pressure Position Sitting 05/31/24 11:16 Pulse Oximetry 94 05/31/24 11:16 Oxygen Delivery Method Room Air 05/31/24 11:16 Oxygen Flow Rate 0 05/31/24 11:16 Pain Level 3 05/31/24 11:16 Medical Decision Making 84-year-old male who is a [facility] patient with a past medical history of previous NSTEMI, ANNABELLA, CHF, who presents today for evaluation of right knee pain. Patient states that he got up last evening, and when he did his right knee gave out, he fell and hit the knee on the floor. He had mild soreness at that time, since then the pain is notably improved. He is able to ambulate well without significant pain now, but there is some mild soreness. He does elicit pain when he flexes his knee to its maximal point. He admits to a small bit of swelling and achiness in the back aspect of his knee. He denies hitting his head or any other trauma. [facility] and they recommended he come for further evaluation to the ED. No other complaints at this time. No other modifying factors. Physical exam demonstrates notably stable appearing right knee, no redness warmth or effusion. Notably stable to stressing. Minimal achiness in the posterior aspect and with maximum flexion. Patient otherwise ambulates well. Differential is highest for mild ligamentous irritation, potential meniscal irritation or damage, bruising, and much less likely DVT. However out of the [facility] is concerned, we will get an ultrasound for further assessment of that. Will get an x-ray to rule out osseous fracture deformity, monitor closely and reassess. Patient does not want a thing for pain at this time. 1:28 PM X-ray is negative for acute process, ultrasound of the right knee demonstrates evidence of a small Guy's cyst. Recommend supportive therapy. Patient stable for discharge otherwise. Discussed red flags for which to return. Patient ambulates well. I have extensively reviewed the treatment plan and discharge instructions with the patient. I have addressed all patient concerns at this time. The patient was made aware of what symptoms to monitor for that would warrant a return to the emergency department. Discussed the plan with the patient, they demonstrate verbal understanding and agreement with our assessment and plan at this time. The documentation in this chart was dictated using [employer] dictation software. Please excuse any dictation errors. FINDINGS: BONES: No acute fracture is present. No bony destructive lesion is seen. Enthesophytes at patella and tibial tubercle. JOINTS: The knee is normally aligned. A small joint effusion is seen. The joint spaces are maintained. SOFT TISSUE: Normal vascular calcifications. IMPRESSION: Small joint effusion. FINDINGS: The common femoral, femoral and popliteal veins demonstrate normal compressibility, augmentation, and color Doppler. The posterior tibial and peroneal veins are patent. No saphenous vein thrombosis or other superficial venous thrombosis is seen. No hematoma. Guy's cyst noted of measuring 3.1 x 1.0 x 3.1 cm. IMPRESSION: Small guy cyst. No evidence of DVT. Quality:SDOH Health Related Social Needs: No Data to Display PFSH All Active Problems (Updated 05/31/24 @ 13:28 by Harrison Hernandez DO) Guy cyst (Acute) Chronic blood loss anemia (Acute) Symptomatic severe aortic stenosis with normal ejection fraction (Chronic) Acute on chronic diastolic heart failure (Acute) NSTEMI (non-ST elevated myocardial infarction) (Acute) CHF (congestive heart failure) (Chronic) Abnormal prostate by palpation (Acute) Anemia (Chronic) Positive FIT (fecal immunochemical test) (Acute) Constipation (Acute) Tubular adenoma of colon (Acute) Medical History BPH (benign prostatic hyperplasia) Diabetes Erectile dysfunction GERD (gastroesophageal reflux disease) Hyperlipidemia Hypertension Hypothyroid Nonrheumatic aortic (valve) stenosis Osteoarthritis Surgical History History of colonoscopy (~01/2012) 06/2021 Hx of neck surgery gland excised Family History Mother Breast cancer Father Stroke Social History Smoking/Tobacco Use Status: Former Tobacco Use Quit Date: 03/13/89 Smoking risk assessment performed?: Yes Alcohol Intake: current Alcohol Intake frequency: holidays/special occasions only Drug use: Never Substance use type: does not use Do you feel safe at home: Yes Do you feel safe in your relationship?: Yes
[2024-05-31 13:25] VITALS: BP 151/75; PULSE 74; RESP 16; O2SAT 98
== END 2024-05-31 13:47 | disposition home or self-care (01) ==
PROVIDERS: Emergency Provider Student in an Organized Health Care Education/Training Program; PCP Internal Medicine
DX: M71.21 Synovial cyst of popliteal space [Baker], right knee (principal); M25.461 Effusion, right knee; I11.0 Hypertensive heart disease with heart failure; I50.33 Acute on chronic diastolic (congestive) heart failure; E78.5 Hyperlipidemia, unspecified; E11.9 Type 2 diabetes mellitus without complications; I25.10 Atherosclerotic heart disease of native coronary artery without angina pectoris; Z79.82 Long term (current) use of aspirin; Z87.891 Personal history of nicotine dependence
CPT/HCPCS: 73562; 99284; 93971